=== PATIENT | female | born 1960 | race Caucasian/White ===

== ENCOUNTER → 2016-12-16 | Outpatient (CLI) | payer BC ==
[~2016-12-16] MED LIST: AMLO-114 PO; ASCA500 PO; CRS/10 PO; CYAN100020 PO; CYM/30 PO; DVN80 PO; ERGO500011 PO; FENO200C6 PO; FERR325T51 PO; HMLI SC; HYDR25TA4 PO; INSDGI SC; INSU1.2I SC; ISOS60TA25 PO; LBT/100 PO; LIRA18IN INJ; MAGN400T6 PO; MISCCAP80 PO; MULT-506 PO; NXM/40 PO; PREG100C PO; PYRI100T4 PO; TRAM-10 PO; VALS320T PO; VTMD1000 PO; [UNRECOGNIZED DRUG - CODE] PO
[2016-12-16 10:42] LABS: MEAN CELL VOLUME 82.3 fL (80-100); MEAN CORPUSCULAR HEMOGLOBIN 26.9 pg (25-34); MEAN CORPUSCULAR HGB CONC 32.6 g/dl (32-36); PLATELET COUNT 250 K/uL (130-400); RED BLOOD COUNT 4.13 M/uL (4.2-5.4); WHITE BLOOD COUNT 7.78 K/uL (4.8-10.8)
[2016-12-16 10:49] LABS: URINE APPEARANCE CLEAR (CLEAR); URINE BILIRUBIN NEG (NEG); URINE COLOR YELLOW; URINE NITRITE NEG (NEG); URINE SPECIFIC GRAVITY 1.017 (1.000-1.030); UROBILINOGEN NEG (NEG)
[2016-12-16 10:51] LABS: CALCIUM 9.4 mg/dl (8.5-10.1)
[2016-12-16 10:55] LABS: ESTIMATED AVERAGE GLUCOSE 171 mg/dl; HA1C FLAG Normal (Normal)
[2016-12-16 10:56] LABS: ALT/SGPT 22 U/L (12-78); BLOOD UREA NITROGEN 56 mg/dl (7-18); BUN/CREATININE RATIO 25.6 (10-20); CARBON DIOXIDE 24 mmol/L (21-32); CHLORIDE 109 mmol/L (98-107); CHOLESTEROL 163 mg/dl (0-200); GLUCOSE 111 mg/dl (70-99); PHOSPHORUS 3.9 mg/dl (2.5-4.9); POTASSIUM 4.2 mmol/L (3.5-5.1); SODIUM 142 mmol/L (136-145); TRIGLYCERIDES 173 mg/dl (0-150); VERY LOW DENSITY LIPOPROT CALC 35 mg/dl
[2016-12-16 11:06] LABS: ALKALINE PHOSPHATASE 42 U/L (45-117); AST/SGOT 11 U/L (15-37); CHOLESTEROL/HDL RATIO 3.8; HDL CHOLESTEROL 43 mg/dl; LDL CHOLESTEROL CALCULATED 85 mg/dl; TOTAL IRON BINDING CAPACITY 387 mcg/dl (250-450)
[2016-12-16 11:09] LABS: MANUAL MICROSCOPIC REQUIRED? NO; REVIEW REQ? NO
[2016-12-16 11:14] LABS: URINE PROTIEN/CREAT RATIO 5.2 (0-0.2); URINE TOTAL PROTEIN 305.8 mg/dl (0-11.9)
== END | disposition home or self-care (01) ==
LOC: C.LAB1850 08:56
PROVIDERS: ATTEND Internal Medicine
DX: I12.9 Hypertensive chronic kidney disease with stage 1 through stage 4 chronic kidney disease, or unspecified chronic kidney disease (principal); R80.9 Proteinuria, unspecified; D64.9 Anemia, unspecified; N18.4 Chronic kidney disease, stage 4 (severe); E11.22 Type 2 diabetes mellitus with diabetic chronic kidney disease; E11.3299 Type 2 diabetes mellitus with mild nonproliferative diabetic retinopathy without macular edema, unspecified eye

== ENCOUNTER → 2017-02-20 | Day surgery (SDC) | payer BC ==
[2017-02-12 10:54] VITALS: BMI 44.0
[~2017-02-20] VITALS: Ht 172.7 cm; Wt 131.8 kg
[~2017-02-20] MED LIST changes: -ASCA500 PO; -CYAN100020 PO; -DVN80 PO; +ERGO1CAP41 PO; -ERGO500011 PO; -INSDGI SC; -LIRA18IN INJ; -NXM/40 PO; -PREG100C PO; +PROPOFOL IV EMULSION 10 MG/ML 20 ML VIAL IV ONE; -PYRI100T4 PO; +SODIUM CHLORIDE 0.9% 500ML 500 ML IV ONE; -VTMD1000 PO; -[UNRECOGNIZED DRUG - CODE] PO
[2017-02-20 10:11] VITALS: Ht 172.7 cm; Wt 131.8 kg
[2017-02-20 10:15] VITALS: TEMP 37.1
--- NOTE | 2017-02-20 10:51 | Endo History and Physical ---
History & Physical Date of Service: Feb 20, 2017. Chief Complaint: screening Referring Physician: Dr. Louie History of Present Illness 56 yo CF who presents for screening colonoscopy. Past Medical History Diabetes, Reflux, High Cholesterol, Hypertension, Kidney Disease Past Surgical History Hx Cardiac Surgery: No Hx Internal Defibrillator: No Hx Pacemaker: No Hx Abdominal Surgery: Yes (APPY, PERFORATED COLON REPAIR, ROD BSO, X 2, ILSA, LAPAROSCOPY'S) Hx of Implantable Prosthesis: No Hx Post-Op Nausea and Vomiting: No Hx Cancer Surgery: No Hx Thoracic Surgery: No Hx Orthopedic: Yes (LUMBAR DISCECTOMY X 2, RT LEG I&D) Hx Urinary Tract Surgery: No Family History Colon CA, Esophogeal CA Social History Smoking Status: Never Smoker Hx Substance Use: No Hx Alcohol Use: Yes (OCCASIONALLY) Allergies Coded Allergies: No Known Allergies (Verified , 02/20/17) Current Medications Reported Home Medications Medications Dose Route/Sig Max Daily Dose Days Date Category Dose Instructions Vitamin D 81629 Unit (Ergocalciferol) 50,000 Unit Cap 1 Tab PO WK 02/12/17 Reported Diovan (Valsartan) 320 Mg Tab 320 Mg PO QAM 02/12/17 Reported Ultram (Tramadol HCl) 50 Mg Tab 50 Mg PO HS PRN 02/12/17 Reported Toujeo Solostar (Insulin Glargine) 300 Unit/Ml Inj 150 Unit SC HS 02/12/17 Reported Multivitamin (Multivitamins) Tab 1 Tab PO QAM 02/12/17 Reported Cymbalta (Duloxetine HCl) 30 Mg Cap 1 Cap PO BID 30 02/12/17 Reported Mag-Ox (Magnesium Oxide) 400 Mg Tab 400 Mg PO BID 11/21/14 Reported Iron Supplement (Ferrous Sulfate) 325 Mg Tab 325 Mg PO QAM 11/21/14 Reported Probiotic (Probiotic Product) 1 Cap Cap 1 Cap PO QAM 11/21/14 Reported Normodyne (Labetalol Hcl) 100 Mg Tab 100 Mg PO Q12 03/03/14 Reported Imdur Ext Rel (Isosorbide Mononitrate) 60 Mg Ertab 60 Mg PO QAM 03/03/14 Reported Hctz (Hydrochlorothiazide) 25 Mg Tab 25 Mg PO QAM 03/03/14 Reported Humalog (Insulin Human Lispro) Inj 1 Dose SC UD 03/03/14 Reported PER SLIDING SCALE. Tricor (Fenofibrate) 200 Mg Cap 200 Mg PO HS 03/03/14 Reported Crestor (Rosuvastatin Calcium) 10 Mg Tab 10 Mg PO HS 03/03/14 Reported Norvasc (Amlodipine Besylate) 10 Mg Tab 10 Mg PO QAM 03/03/14 Reported Vital Signs Weight (Kilograms): 131.82 Height (Feet): 5 Height (Inches): 8 Date Time Temp Pulse Resp B/P (MAP) Pulse Ox O2 Delivery O2 Flow Rate FiO2 02/20/17 10:15 37.1 75 20 189/84 (119) 95 Room Air Physical Exam General Appearance: WD/WN, no apparent distress Respiratory/Chest: Auscultation: breath sounds normal Cardiovascular: Heart Auscultation: RRR Abdomen: Bowel Sounds: normal Inspection & Palpation: soft, non-distended, no tenderness, guarding & rebound Assessment and Plan Assessment: 56 yo CF who presents for screening colonoscopy. Plan: Proceed with colonoscopy.
--- NOTE | 2017-02-20 11:09 | Discharge Instructions ---
Endoscopy Patient Instructions Date / Procedure(s) Performed Feb 20, 2017. Colonoscopy Allergy Information Coded Allergies: No Known Allergies (Verified , 02/20/17) Discharge Date / Findings Feb 20, 2017. Diverticulosis Internal hemorrhoids Normal appearance of Ileo-colonic anastomosis Medication Instructions OK to resume all medications today as prescribed Reported Home Medications Medications Dose Route/Sig Max Daily Dose Days Date Category Dose Instructions Vitamin D 25548 Unit (Ergocalciferol) 50,000 Unit Cap 1 Tab PO WK 02/12/17 Reported Diovan (Valsartan) 320 Mg Tab 320 Mg PO QAM 02/12/17 Reported Ultram (Tramadol HCl) 50 Mg Tab 50 Mg PO HS PRN 02/12/17 Reported Toujeo Solostar (Insulin Glargine) 300 Unit/Ml Inj 150 Unit SC HS 02/12/17 Reported Multivitamin (Multivitamins) Tab 1 Tab PO QAM 02/12/17 Reported Cymbalta (Duloxetine HCl) 30 Mg Cap 1 Cap PO BID 30 02/12/17 Reported Mag-Ox (Magnesium Oxide) 400 Mg Tab 400 Mg PO BID 11/21/14 Reported Iron Supplement (Ferrous Sulfate) 325 Mg Tab 325 Mg PO QAM 11/21/14 Reported Probiotic (Probiotic Product) 1 Cap Cap 1 Cap PO QAM 11/21/14 Reported Normodyne (Labetalol Hcl) 100 Mg Tab 100 Mg PO Q12 03/03/14 Reported Imdur Ext Rel (Isosorbide Mononitrate) 60 Mg Ertab 60 Mg PO QAM 03/03/14 Reported Hctz (Hydrochlorothiazide) 25 Mg Tab 25 Mg PO QAM 03/03/14 Reported Humalog (Insulin Human Lispro) Inj 1 Dose SC UD 03/03/14 Reported PER SLIDING SCALE. Tricor (Fenofibrate) 200 Mg Cap 200 Mg PO HS 03/03/14 Reported Crestor (Rosuvastatin Calcium) 10 Mg Tab 10 Mg PO HS 03/03/14 Reported Norvasc (Amlodipine Besylate) 10 Mg Tab 10 Mg PO QAM 03/03/14 Reported Provider Instructions Activity Restrictions - No exercising or heavy lifting for 24 hours. - Do not drink alcohol the day of the procedure. - Do not drive a car or operate machinery until the day after the procedure. - Do not make any important decisions or sign important papers in 24 hours after the procedure. Following Day: - Return to full activity which may include returning to work/school. Diet Start your diet with liquids and light foods (jello, soup, juice, toast). Then eat your usual diet if not nauseated. Treatment For Common After Affects For mild abdominal pain, bloating, or excessive gas: - Rest - Eat lightly - Lie on right side Follow-Up Information Follow-up with Dr. Louie as scheduled Anesthesia Information What You Should Know You have had a procedure that required some medicine to reduce anxiety and discomfort. This treatment is called moderate sedation. After receiving the treatment, you may be sleepy, but you will be able to breathe on your own. The effects of the treatment may last for several hours. Follow these instructions along with Activity/Diet recommendations noted above: * Do NOT do anything where dizziness or clumsiness would be dangerous. * Rest quietly at home today, then you can be up and about tomorrow. * Have a responsible person stay with you the rest of today. * You may have had an I.V. today. If so, you may take the dressing off later today. Recommendations Call your doctor if: * Trouble breathing * Continuous vomiting for more than 24 hours * Temperature above 101 degrees * Severe abdominal pain or bloating * Pain not relieved by pain medicine ordered * There is increased drainage or redness from any incision * A large amount of rectal bleeding greater than 2-3 tablespoons. (If you had a polyp/s removed or have hemorrhoids, a small amount of blood - from the rectum is to be expected.) * You have any unanswered questions or concerns. IN THE EVENT OF A SERIOUS EMERGENCY, GO TO THE NEAREST EMERGENCY ROOM Your discharge instructions were prepared by provider Anton Miranda. Patient Instructions Signature Page Deandra Magdaleno Patient (or Guardian) Signature/Date: I have read and understand the instructions given to me by my caregivers. Caregiver/RN/Doctor Signature/Date: The above-named patient and/or guardian has received patient instructions on this date. + Original Patient Signature Page (only) stays with chart. Please make copy for patient.
--- NOTE | 2017-02-20 11:14 | GI REPORT ---
Procedure Date: 02/20/2017 10:42 AM Procedure: Colonoscopy Indications: High risk colon cancer surveillance: Personal history of colonic polyps Medicines: Monitored Anesthesia Care Complications: No immediate complications. Estimated Blood Loss: Estimated blood loss: none. Procedure: Pre-Anesthesia Assessment: - Prior to the procedure, a History and Physical was performed, and patient medications and allergies were reviewed. The patient's tolerance of previous anesthesia was also reviewed. The risks and benefits of the procedure and the sedation options and risks were discussed with the patient. All questions were answered, and informed consent was obtained. Prior Anticoagulants: The patient has taken aspirin, last dose was 1 day prior to procedure. ASA Grade Assessment: II - A patient with mild systemic disease. After reviewing the risks and benefits, the patient was deemed in satisfactory condition to undergo the procedure. After I obtained informed consent, the scope was passed under direct vision. Throughout the procedure, the patient's blood pressure, pulse, and oxygen saturations were monitored continuously. The scope was introduced through the anus and advanced to the ileocolonic anastomosis. The colonoscopy was performed without difficulty. The patient tolerated the procedure well. The quality of the bowel preparation was good. The terminal ileum and the rectum were photographed. Findings: There was evidence of a prior end-to-side ileo-colonic anastomosis in the ascending colon. This was patent and was characterized by healthy appearing mucosa. The anastomosis was traversed. Multiple small-mouthed diverticula were found in the sigmoid colon. Non-bleeding internal hemorrhoids were found during retroflexion. The hemorrhoids were small. Impression: - Patent end-to-side ileo-colonic anastomosis, characterized by healthy appearing mucosa. - Diverticulosis in the sigmoid colon. - Non-bleeding internal hemorrhoids. - No specimens collected. Recommendation: - Resume previous diet. - Continue present medications. - Repeat colonoscopy in 5 years for surveillance. - Return to primary care physician as previously scheduled. Anton Miranda DO 02/20/2017 11:13:57 AM This report has been signed electronically. Note Initiated On: 02/20/2017 10:42 AM I attest to the content of the Intraoperative Record and orders documented therein, exceptions below
[2017-02-20 11:48] VITALS: BP 137/74; PULSE 72; O2SAT 94
--- NOTE | 2017-02-20 14:11 | Anesthesiology Progress Note ---
Anesthesia Post Op Note Date & Time Feb 20, 2017 at 14:11 Vital Signs Pain Intensity: 0 Vital Signs Past 12 Hours Date Time Temp Pulse Resp B/P (MAP) Pulse Ox O2 Delivery O2 Flow Rate FiO2 02/20/17 11:48 72 20 137/74 (95) 94 02/20/17 11:32 74 20 139/95 (110) 94 Room Air 02/20/17 11:17 68 20 129/64 (85) 94 Room Air 02/20/17 10:15 37.1 75 20 189/84 (119) 95 Room Air Notes Mental Status: alert / awake / arousable, participated in evaluation Pt Amnestic to Procedure: Yes Nausea / Vomiting: adequately controlled Pain: adequately controlled Airway Patency, RR, SpO2: stable & adequate BP & HR: stable & adequate Hydration State: stable & adequate Anesthetic Complications: no major complications apparent
== END | disposition home or self-care (01) ==
LOC: C.GI 09:40
PROVIDERS: ATTEND Internal Medicine
DX: Z12.11 Encounter for screening for malignant neoplasm of colon (principal); K64.8 Other hemorrhoids; K57.30 Diverticulosis of large intestine without perforation or abscess without bleeding; E11.9 Type 2 diabetes mellitus without complications; K21.9 Gastro-esophageal reflux disease without esophagitis; E78.00 Pure hypercholesterolemia, unspecified; N18.9 Chronic kidney disease, unspecified; I12.9 Hypertensive chronic kidney disease with stage 1 through stage 4 chronic kidney disease, or unspecified chronic kidney disease; Z79.4 Long term (current) use of insulin; Z86.010 Personal history of colon polyps; Z90.49 Acquired absence of other specified parts of digestive tract; Z90.710 Acquired absence of both cervix and uterus; Z90.722 Acquired absence of ovaries, bilateral; Z90.79 Acquired absence of other genital organ(s); Z80.0 Family history of malignant neoplasm of digestive organs

== ENCOUNTER → 2017-06-30 | Outpatient (CLI) | payer BC ==
[~2017-06-30] MED LIST changes: -ERGO1CAP41 PO; +ERGO500011 PO; -PROPOFOL IV EMULSION 10 MG/ML 20 ML VIAL IV ONE; -SODIUM CHLORIDE 0.9% 500ML 500 ML IV ONE
[2017-06-30 09:34] LABS: HEMATOCRIT 32.6 % (37-47); MEAN CELL VOLUME 81.7 fL (80-100); MEAN CORPUSCULAR HEMOGLOBIN 26.8 pg (25-34); MEAN CORPUSCULAR HGB CONC 32.8 g/dl (32-36); MEAN PLATELET VOLUME 10.9 fL (7.4-10.4); PLATELET COUNT 236 K/uL (130-400); RED BLOOD COUNT 3.99 M/uL (4.2-5.4); WHITE BLOOD COUNT 7.38 K/uL (4.8-10.8)
[2017-06-30 09:42] LABS: ESTIMATED AVERAGE GLUCOSE 166 mg/dl; HA1C FLAG Normal (Normal)
[2017-06-30 10:20] LABS: ALT/SGPT 25 U/L (12-78); AST/SGOT 12 U/L (15-37); BLOOD UREA NITROGEN 60 mg/dl (7-18); BUN/CREATININE RATIO 22.2 (10-20); CALCIUM 9.2 mg/dl (8.5-10.1); CARBON DIOXIDE 23 mmol/L (21-32); CHLORIDE 108 mmol/L (98-107); CREATININE 2.69 mg/dl (0.60-1.20); GLUCOSE 92 mg/dl (70-99); POTASSIUM 4.5 mmol/L (3.5-5.1); SODIUM 141 mmol/L (136-145)
[2017-06-30 10:22] LABS: ALB/GLOB RATIO 0.9 (0.9-2); ALKALINE PHOSPHATASE 48 U/L (45-117)
[2017-06-30 10:27] LABS: URINE APPEARANCE CLEAR (CLEAR); URINE BILIRUBIN NEG (NEG); URINE COLOR YELLOW; URINE NITRITE NEG (NEG); URINE PH 6.5 (4.5-7.5); URINE SPECIFIC GRAVITY 1.015 (1.000-1.030); UROBILINOGEN NEG (NEG)
[2017-06-30 10:35] LABS: MANUAL MICROSCOPIC REQUIRED? NO; REVIEW REQ? NO
[2017-06-30 10:38] LABS: CREATININE, URINE 42.1 mg/dl; URINE PROTIEN/CREAT RATIO 7.7 (0-0.2); URINE TOTAL PROTEIN 322.8 mg/dl (0-11.9)
== END | disposition home or self-care (01) ==
LOC: C.LAB1850 08:42
PROVIDERS: ATTEND Internal Medicine Nephrology
DX: E11.49 Type 2 diabetes mellitus with other diabetic neurological complication (principal); I12.9 Hypertensive chronic kidney disease with stage 1 through stage 4 chronic kidney disease, or unspecified chronic kidney disease; R80.9 Proteinuria, unspecified; N18.3 Chronic kidney disease, stage 3 (moderate); D64.9 Anemia, unspecified; E55.9 Vitamin D deficiency, unspecified; Z11.59 Encounter for screening for other viral diseases

== ENCOUNTER → 2017-07-27 | Outpatient (CLI) | payer BC ==
--- NOTE | 2017-07-27 09:46 | DIAGNOSTIC IMAGING REPORT ---
CHEST 2 VIEWS ROUTINE CLINICAL HISTORY: 57 years-old Female presenting with R06.02 R05, shortness of breath, cough. TECHNIQUE: PA and lateral views of the chest were obtained. COMPARISON: 02/14/2015. FINDINGS: Atherosclerosis of aortic arch. Cardiac silhouette enlarged, unchanged. The double density posterior to the cardiac silhouette suggests left atrial enlargement. Pulmonary vascular prominence and a prominent lung markings bilaterally. Stable bandlike opacity in the left midlung, likely scarring. Minimal bandlike opacities at the right lung base also persist, possibly also scarring or atelectasis. No pleural effusion or pneumothorax. Osseous structures normal. Upper abdomen normal. IMPRESSION: 1. Cardiomegaly and evidence of volume overload. No vincent pulmonary edema. Electronically signed by: Anil Burnett M.D. 07/27/2017 9:45 AM Dictated Date/Time: 07/27/2017 9:43 AM
== END | disposition home or self-care (01) ==
LOC: C.RAD1850 09:32
PROVIDERS: ATTEND Nurse Practitioner Adult Health
DX: R06.02 Shortness of breath (principal); R05 Cough

== ENCOUNTER → 2017-07-30 | Outpatient (CLI) | payer BC ==
[2017-07-30 12:06] LABS: BASO % 0.2 %; BASO ABS # 0.03 K/uL (0-0.2); COMPLETE YES; EOS % 1.7 %; HEMATOCRIT 32.1 % (37-47); IG% 1.7 %; LYMPH ABS # 2.58 K/uL (1.2-3.4); MEAN CELL VOLUME 83.8 fL (80-100); MEAN CORPUSCULAR HEMOGLOBIN 27.2 pg (25-34); MEAN CORPUSCULAR HGB CONC 32.4 g/dl (32-36); MEAN PLATELET VOLUME 10.8 fL (7.4-10.4); MONO % 6.5 %; NEUT % 68.9 %; PLATELET COUNT 291 K/uL (130-400); RED BLOOD COUNT 3.83 M/uL (4.2-5.4); WHITE BLOOD COUNT 12.31 K/uL (4.8-10.8)
[2017-07-30 12:35] LABS: BLOOD UREA NITROGEN 59 mg/dl (7-18); BUN/CREATININE RATIO 25.5 (10-20); CALCIUM 9.1 mg/dl (8.5-10.1); CARBON DIOXIDE 27 mmol/L (21-32); CHLORIDE 108 mmol/L (98-107); CREATININE 2.32 mg/dl (0.60-1.20); GLUCOSE 78 mg/dl (70-99); POTASSIUM 4.3 mmol/L (3.5-5.1); SODIUM 141 mmol/L (136-145)
== END | disposition home or self-care (01) ==
LOC: C.LAB1850 11:09
PROVIDERS: ATTEND Nurse Practitioner Adult Health
DX: N18.3 Chronic kidney disease, stage 3 (moderate) (principal); R06.02 Shortness of breath

== ENCOUNTER → 2017-08-12 | Outpatient (CLI) | payer BC ==
[~2017-08-12] MED LIST changes: -AMLO-114 PO; +AMLO10TA3 PO
== END | disposition home or self-care (01) ==
LOC: C.LAB1850 12:55
PROVIDERS: ATTEND Internal Medicine Clinical Cardiac Electrophysiology
DX: R93.8 Abnormal findings on diagnostic imaging of other specified body structures (principal)

== ENCOUNTER → 2017-10-15 | Outpatient (CLI) | payer OTHER ==
[~2017-10-15] MED LIST changes: +AMLO-114 PO; -AMLO10TA3 PO
[2017-10-15 14:56] LABS: ALBUMIN 3.3 gm/dl (3.4-5.0); BLOOD UREA NITROGEN 62 mg/dl (7-18); CALCIUM 8.8 mg/dl (8.5-10.1); CARBON DIOXIDE 26 mmol/L (21-32); CREATININE 2.88 mg/dl (0.60-1.20); GLUCOSE 190 mg/dl (70-99); PHOSPHORUS 5.2 mg/dl (2.5-4.9); POTASSIUM 4.8 mmol/L (3.5-5.1); SODIUM 139 mmol/L (136-145)
[2017-10-15 15:10] LABS: HEMATOCRIT 33.5 % (37-47); HEMOGLOBIN 10.8 g/dL (12.0-16.0); MEAN CELL VOLUME 82.1 fL (80-100); MEAN CORPUSCULAR HEMOGLOBIN 26.5 pg (25-34); MEAN CORPUSCULAR HGB CONC 32.2 g/dl (32-36); MEAN PLATELET VOLUME 11.3 fL (7.4-10.4); PLATELET COUNT 233 K/uL (130-400); RED CELL DISTRIBUTION WIDTH CV 15.5 % (11.5-14.5); RED CELL DISTRIBUTION WIDTH SD 46.7 fL (36.4-46.3); WHITE BLOOD COUNT 9.31 K/uL (4.8-10.8)
== END | disposition home or self-care (01) ==
LOC: C.LAB1850 13:45
PROVIDERS: ATTEND Internal Medicine Nephrology
DX: R80.9 Proteinuria, unspecified (principal); E55.9 Vitamin D deficiency, unspecified; N18.3 Chronic kidney disease, stage 3 (moderate); D64.9 Anemia, unspecified

== ENCOUNTER → 2017-12-17 | Outpatient (CLI) | payer OTHER ==
[2017-12-17 09:46] LABS: HEMOGLOBIN 10.5 g/dL (12.0-16.0); MEAN CELL VOLUME 82.7 fL (80-100); MEAN CORPUSCULAR HEMOGLOBIN 26.3 pg (25-34); MEAN CORPUSCULAR HGB CONC 31.8 g/dl (32-36); MEAN PLATELET VOLUME 10.6 fL (7.4-10.4); PLATELET COUNT 250 K/uL (130-400); RED CELL DISTRIBUTION WIDTH CV 15.8 % (11.5-14.5); RED CELL DISTRIBUTION WIDTH SD 47.4 fL (36.4-46.3); WHITE BLOOD COUNT 6.91 K/uL (4.8-10.8)
[2017-12-17 10:03] LABS: ALBUMIN 3.1 gm/dl (3.4-5.0); BLOOD UREA NITROGEN 56 mg/dl (7-18); CALCIUM 8.6 mg/dl (8.5-10.1); CARBON DIOXIDE 26 mmol/L (21-32); CREATININE 3.16 mg/dl (0.60-1.20); GLUCOSE 81 mg/dl (70-99); POTASSIUM 4.5 mmol/L (3.5-5.1); SODIUM 142 mmol/L (136-145)
== END | disposition home or self-care (01) ==
LOC: C.LAB1850 08:39
PROVIDERS: ATTEND Internal Medicine Nephrology
DX: I12.9 Hypertensive chronic kidney disease with stage 1 through stage 4 chronic kidney disease, or unspecified chronic kidney disease (principal); R80.9 Proteinuria, unspecified; N18.3 Chronic kidney disease, stage 3 (moderate); D64.9 Anemia, unspecified; E55.9 Vitamin D deficiency, unspecified; E11.22 Type 2 diabetes mellitus with diabetic chronic kidney disease

== ENCOUNTER → 2018-03-11 | Outpatient (CLI) | payer OTHER ==
[~2018-03-11] MED LIST changes: -AMLO-114 PO; +AMLO10TA3 PO
--- NOTE | 2018-03-11 16:00 | MAMMOGRAPHY REPORT ---
BILATERAL DIGITAL SCREENING MAMMOGRAM TOMOSYNTHESIS WITH CAD: 03/11/2018 CLINICAL HISTORY: Routine screening. Patient has no complaints. TECHNIQUE: The study was acquired using full field digital technology and interpreted from soft copy. Breast tomosynthesis in addition to standard 2D mammography was performed. Current study was also ev aluated with a Computer Aided Detection (CAD) system. COMPARISON: Comparison is made to exams dated: 01/16/2016 mammogram, 07/17/2015 mammogram, 06/26/2015 m ammogram, 02/12/2015 mammogram, 01/16/2016 ultrasound, and 07/17/2015 ultrasound - [facility]. BREAST COMPOSITION: There are scattered areas of fibroglandular density in both breasts. FINDINGS: No suspicious masses, calcifications, or areas of architectural distortion are noted in either breast . There has been no significant interval change compared to prior exams. Scattered bilateral benign-a ppearing calcifications are not significantly changed. IMPRESSION: ACR BI-RADS CATEGORY 2: BENIGN There is no mammographic evidence of malignancy. A 1 year screening mammogram is recommended.( 019) The patient will receive written notification of the results. Some breast cancers are not detected with mammography. A negative mammographic report should not ke y biopsy if a clinically suggestive mass is present. Danae Wetzel M.D. ah/:03/11/2018 13:25:05 Staff Analyst: RT Yael(R)(M), [facility] letter sent: Normal 1/2 BI-RADS Code: ACR BI-RADS Category 2: Benign
== END | disposition home or self-care (01) ==
LOC: C.MAMM 12:54
PROVIDERS: ATTEND Internal Medicine
DX: Z12.31 Encounter for screening mammogram for malignant neoplasm of breast (principal)

== ENCOUNTER → 2018-04-06 | Outpatient (CLI) | payer OTHER ==
[2018-04-06 10:08] LABS: HEMATOCRIT 34.2 % (37-47); HEMOGLOBIN 11.2 g/dL (12.0-16.0); MEAN CELL VOLUME 84.2 fL (80-100); MEAN CORPUSCULAR HEMOGLOBIN 27.6 pg (25-34); MEAN CORPUSCULAR HGB CONC 32.7 g/dl (32-36); PLATELET COUNT 279 K/uL (130-400); RED CELL DISTRIBUTION WIDTH CV 15.1 % (11.5-14.5); RED CELL DISTRIBUTION WIDTH SD 46.6 fL (36.4-46.3); WHITE BLOOD COUNT 8.46 K/uL (4.8-10.8)
[2018-04-06 10:31] LABS: HEMOGLOBIN A1C 6.8 % (4.5-5.6)
[2018-04-06 10:38] LABS: ALBUMIN 3.2 gm/dl (3.4-5.0); BLOOD UREA NITROGEN 52 mg/dl (7-18); CALCIUM 8.9 mg/dl (8.5-10.1); CARBON DIOXIDE 25 mmol/L (21-32); CHOLESTEROL 179 mg/dl (0-200); CREATININE 3.31 mg/dl (0.60-1.20); GLUCOSE 56 mg/dl (70-99); LDL CHOLESTEROL CALCULATED 98 mg/dl; PHOSPHORUS 4.6 mg/dl (2.5-4.9); SODIUM 142 mmol/L (136-145)
== END | disposition home or self-care (01) ==
LOC: C.LAB1850 09:21
PROVIDERS: ATTEND Internal Medicine Nephrology
DX: I10 Essential (primary) hypertension (principal); R80.9 Proteinuria, unspecified; D64.9 Anemia, unspecified; N18.3 Chronic kidney disease, stage 3 (moderate); E11.9 Type 2 diabetes mellitus without complications

== ENCOUNTER 2022-07-29 12:55 | Inpatient (IN) ==
[2022-07-29 14:19] LABS: Basophils # (auto) 0.06 K/uL (0-0.2); Basophils % (auto) 0.7 %; Eosinophils # (auto) 0.28 K/uL (0-0.50); Eosinophils % (auto) 3.2 %; Hematocrit (blood only) 44.9 % (34.1-44.9); Hemoglobin 14.4 g/dl (12.0-16.0); Immature Granulocytes # (auto) 0.08 K/uL (0.00-0.02); Immature Granulocytes % (auto) 0.9 %; Lymphocytes # (auto) 2.02 K/uL (1.2-3.4); Lymphocytes % (auto) 22.8 %; Mean Corpuscular Hemoglobin 31.6 pg (25.0-34.0); Mean Corpuscular Hgb Conc 32.1 g/dL (32.0-36.0); Mean Corpuscular Volume 98.5 fL (80.0-100.0); Mean Platelet Volume 10.6 fL (9.4-12.3); Monocytes # (auto) 0.51 K/uL (0.24-0.82); Monocytes % (auto) 5.8 %; Neutrophils % (auto) 66.6 %; Platelet Count 187 K/uL (130-400); RDW Coefficient of Variation 14.8 % (11.5-14.5); RDW Standard Deviation 53.9 fL (36.4-46.3); Red Blood Count 4.56 M/uL (3.93-5.22); White Blood Count 8.85 K/ul (4.8-10.8)
--- NOTE | 2022-07-29 14:30 | XRay Report ---
SINGLE VIEW CHEST CLINICAL HISTORY: Atypical chest pain. Fluid overload FINDINGS: An AP, portable, upright chest radiograph is compared to study dated 05/13/2018. The heart i s enlarged noting atherosclerotic calcification of the thoracic ureter. There is pulmonary vascular c ongestion. The lungs and pleural spaces are clear noting bibasilar atelectasis. No pneumothorax is seen. The skeletal structures are osteopenic. The [place] thorax is grossly intact. IMPRESSION: Cardiomegaly with pulmonary vascular congestion. ACT 112: Negative or not required by law. Electronically signed by: Jeromy Segal M.D. 07/29/2022 2:29 PM
[2022-07-29 14:33] LABS: Partial Thromboplastin Ratio 1.1; Partial Thromboplastin Time 30.2 Seconds (21.0-31.0); Prothrombin Time 11.1 Seconds (9.0-12.0)
[2022-07-29 14:46] LABS: Troponin I High Sensitivity 26.2 pg/ml (0-14)
[2022-07-29 15:13] LABS: BUN Creatinine Ratio 5.5 (10-20); Calcium 8.7 mg/dl (8.5-10.1); Est GFR (African American) 6.4 ml/min; Est GFR (Non-African American) 5.6 ml/min; Potassium 4.3 mmol/L (3.5-5.1)
[2022-07-29] MEDS ORDERED: SODIUM CHLORIDE 0.9% 250 ML IV ONE (15:13)
--- NOTE | 2022-07-29 15:42 | History & Physical Report ---
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 fib on apixaban, depression who presents recommended for admission from the cardiology office who was found to be short of breath with relative hypotension on follow- up 07/29 with her last dialysis session 07/28 Hypotension 80s/60s and tachycardic to 110 in ER. Improved to systolic low 100, heart rate 90s following to 50 cc NSS Patient reports recurrent hypotension worsened with systolics in the 80s at home after dialysis. Have only been able to take off around 4 kg per session per patient Weight today same as weight last week in ER Patient with hypotension to the 80s both at dialysis and at home. No lightheadedness, dizziness, syncope, presyncope Intermittent hypotension in the past 2/2 dialysis, hold diltiazem No pedal edema, no pulmonary edema, and no ascites is appreciated on ER US bedside exam Suspect patient is w/ low intravascular volume. We will complete work-up to evaluate for reduced cardiac function +/- worsened by diltiazem. Echo pending, tropes trended. Trop mildly elevated at admit, although this likely be slightly elevated in the setting of ESRD patient has no clinical chest pain at presentation ESRD, MWF dialysis 2/2 diabetic nephropathy Anuric, produces a scant trickle of urine in the morning unmeasurable otherwise no urine production Volume status managed with dialysis He is not overtly fluid overloaded on x-ray or exam,? Hypotension with volume decrease during dialysis yesterday Receiving small bolus of fluid back on ER evaluation Nephrology consulted for dialysis Paroxysmal A. fib [employer]E [employer] AD[employer] rate controlled with diltiazem EKG pending repeat, poor quality tracing. Intermittently irregular without consistent P waves On Eliquis for stroke prophylaxis, continue apixaban 5 mg p.o. twice daily Rate in 1 teens initially, improved to 90s with small to 50 cc bolus of Diltiazem held for hypotension If limiting hypotension due to CCB or concern for reduced EF, may need switched to alternative rate control. If doing well from volume/blood pressure standpoint can resume diltiazem in the morning Dyslipidemia Continue statin Type II DM On aspart SSI and Tresiba 100 unit every morning at home Based on basal requirements: Basal insulin 50 units twice daily, CF 10, ratio 3. Weight-based: Basal 23 twice daily, CF 15, carb ratio 6 Will admit on basal 30 twice daily, CF 12, carb ratio 5. Glucose checks AC/at bedtime with goal [id number], given ESRD and high requirements will consult pharmacy for adjustments Continue gabapentin 400 mg at bedtime, 200 mg a.m. for neuropathy Mood Continue duloxetine 30 mg p.o. twice daily Hyperlipidemia Continue rosuvastatin 10 mg daily nightly DVT prophylaxis: Anticoagulated on DOAC DVT prophylaxis: On DOAC Diet: Dialysis renal, type II DM CODE STATUS: Full code Disposition: Medical with telemetry for ESRD and cardiac eval. 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 fib on apixaban, depression who presents recommended for admission from the cardiology office who was found to be short of breath with relative hypotension on follow- up 07/29 with her last dialysis session 07/28 At time of ER evaluation patient is tachycardic, blood pressure 83/59, creatinine is 7. 3 after last dialysis 1 day ago, potassium is normal at 4.3. Troponin high-sensitivity is 26.2, COVID is negative. CXR shows cardiomegaly with pulmonary vascular congestion without pleural effusion or overt edema. Per Cardiology Note 06/12/2022: 1. Dobutamine stress echo 11/30/2013: Nondiagnostic. Heart rate achieved only 62% MPHR. Hypertensive response to dobutamine. EF 55-60%. No significant valvular abnormalities. 2. Echo 02/02/2017: Normal LV size, wall motion, systolic function. EF 50-55%. Mild LVH. Trace to mild MR. 3. Echo 10/19/2018: Normal LV size, wall motion, systolic function. EF 60-65%. Moderate LVH. Mild left atrial dilation. No significant valvular abnormalities. 4. Nuclear stress 11/04/2018: Negative for ischemia. EF 58%. 5. Event monitor 01/31/2019 to 03/01/2019: Atrial flutter with RVR. No reported symptoms. No leukocytosis Hemoglobin 14.4 Sodium 139, potassium 4.3 AG 12 Creatinine is dialysis dependent. High-sensitivity troponin 26.2 COVID-negative IMPRESSION: Cardiomegaly with pulmonary vascular congestion. EKG: Comparison EKG 06/12/2022: Sinus with PVCs, right bundle branch block, QTC 450. ___ Has not been ablwe to have full dialysis treatments 2/2 hypotension and tachycardia with attempted outpatient dialysis, hypotension. Takes of 4-5 kilos per sessio nper patient and granddaughter. Dry weight was 127 kilos, at 136kg now not tolerating dialysis. Reports she has had ultrasounds to look for ascities which were negative. Endorses shortness of breath with walking No shotness of breath or chest pain at rest Does endorse inability to lay flat 2/2 orthopnea, sleeps with a wedge pillow for 2-3 years Pt has not noticed increased swelling, daughter think izzy stomach has been a little bigger/more full pt denies this although notes her pants may be a little tighter than normal. No history of chest pain at rest or when walking around Does feel fluttering/afib intermittently more often in the evening. Does not have palpitations at time of bedside assessment Endorses neuropathy. No fevers chills or sweats no cough no sputum production no nausea/vomiting/diarrhea no bloody/black BMs Appetite has been 'good, too good.' Diet has not changed. No unusually salty meeals/soups/deli meats but pt notes she does use salt 'more than I should' and daughter notes has been salting eggs and 'she has always been a salt person.' ESRD on dialysis. Has at most a very tiny trickle of urine some mornings 'not even enough to measure', functionally anuric and dialysis dependent. No burning in the abdomen, no burnding with morning trickle, no back pain. Medical History: Reviewed Medications: Reviewed. No missed doses, last took this morning at 8am Surgical History: Reviewed Allergies: Reviewed Social History: No tobacco product or etoh use. Code Status: Surrogate [phone] Aida Mathew. Full Code, discussed at bedside. Allergies Allergy/AdvReac Type Severity Reaction Status Date / Time atorvastatin [From Lipitor] AdvReac Mild Muscle Pain Verified 07/23/22 14:50 venlafaxine [From Effexor] AdvReac Mild Not Verified 07/23/22 14:50 helpful for depression/neuropathy management Home Medications Medication Instructions Recorded Confirmed Type Saccharomyces boulardii 250 mg 250 mg PO DAILY 03/22/19 07/23/22 History capsule Accu-Chek Guide Glucose Meter #1 ea 07/07/19 06/12/22 Rx (blood-glucose meter) cinacalcet 30 mg tablet 30 mg PO DAILY 09/27/19 07/23/22 History sucroferric oxyhydroxide 500 mg 1,000 mg PO TID 12/20/19 07/23/22 History chewable tablet (Velphoro) Accu-Chek Fastclix Lancet Drum #102 ea 12/25/20 06/12/22 Rx (lancets) calcium acetate 1,334 mg PO TID 12/25/20 07/23/22 History sennosides 8.6 mg tablet (Senokot) 8.6 mg PO DAILY PRN Constipation 12/25/20 07/23/22 History vitamin B complex-vitamin C-folic 1 tab PO DAILY 12/25/20 07/23/22 History acid 0.8 mg tablet (Renal-Krishna) cholecalciferol (vitamin D3) 50 50 mcg PO DAILY 11/05/21 07/23/22 History mcg (2,000 unit) capsule gabapentin 400 mg capsule 400 mg PO HS #30 caps 12/06/21 07/23/22 Rx diltiazem HCl 180 mg capsule,24 180 mg PO DAILY #90 caps 12/16/21 07/23/22 Rx hr,extended release rosuvastatin 10 mg tablet 10 mg PO DAILY #90 tabs 12/16/21 07/23/22 Rx syringe with needle, safety 3 mL #4 ea 12/18/21 06/12/22 Rx 25 gauge x 1" (BD SafetyGlide Syringe) Tresiba FlexTouch U-200 200 100 unit (0.5 mL) subcut QAM 30 01/27/22 07/23/22 Rx unit/mL (3 mL) subcutaneous pen days #18 mL (insulin degludec) icosapent ethyl 1 gram capsule 2 g PO BID #360 caps 01/27/22 07/23/22 Rx (Vascepa) cyanocobalamin (vitamin B-12) 1,000 mcg IM ONCE #1 mL 01/30/22 07/23/22 Rx 1,000 mcg/mL injection solution insulin syringe-needle U-100 0.5 #100 ea 01/30/22 06/12/22 Rx mL 30 gauge x 1/2" (BD Insulin Syringe Ultra-Fine) pen needle, diabetic 32 gauge x #200 ea 03/10/22 06/12/22 Rx 5/32" (BD Ultra-Fine Kaylin Pen Needle) insulin aspart U-100 100 unit/mL 90 unit (0.9 mL) subcut DAILY 30 03/17/22 07/23/22 Rx (3 mL) subcutaneous pen (Novolog days #30 mL Flexpen U-100 Insulin aspart) Accu-Chek Guide test strips (blood #100 ea 03/19/22 06/12/22 Rx sugar diagnostic) apixaban 5 mg tablet 5 mg PO BID #180 tabs 03/21/22 07/23/22 Rx duloxetine 30 mg capsule,delayed 30 mg PO BID #60 caps 03/21/22 07/23/22 Rx release gabapentin 100 mg capsule 200 mg PO QAM #60 caps 06/26/22 07/23/22 Rx peg 3350-electrolytes 236 240 ml PO Q10M #4,000 mL 07/15/22 Rx gram-22.74 gram-6.74 gram-5.86 gram solution (GaviLyte-G) Past Med/Surg History Medical History Abdominal bloating Anticoagulant long-term use Depression Diabetes mellitus, type 2 IDDM Dialysis patient M/W/F [facility] IN [place] Dietary counseling and surveillance End stage renal disease History of anemia History of blood transfusion S/P SURGERY History of kidney stones Hyperlipidemia Hypertension Morbid obesity Paroxysmal atrial fibrillation follows with Dr. Salvador>reason for eliquis Paroxysmal atrial flutter Peripheral neuropathy Retinopathy "MILD" Skin lesion Surgical History Difficult intubation 11/21/14= EXPLORATORY LAPAROTOMY= GRADE VIEW 1, GLIDESCOPE #3, ETT 7.5 AT [facility] H/O exploratory laparotomy History of appendectomy + BOWEL RESECTION 2/2 PERFORATION History of bowel resection PERFORATED APPENDIX SURGERY History of cardiac cath "many years ago" no stents History of cataract surgery bilateral eyes History of colonoscopy History of discectomy LUMBAR x2 History of hysterectomy ROD-BSO History of tooth extraction Hx of section X2 Hx of vascular surgery LEFT BASELIC VEIN AVF= 05/19/18= MAC SEDATION AT [facility] [place] S/P arteriovenous (AV) fistula creation left arm S/P dilation and curettage D&E Family History Grandmother Family history of diabetes mellitus Family/Other Family history of diabetes mellitus Uncle Colorectal cancer Paternal Father Esophageal cancer Mother Methicillin resistant pneumonia due to Staphylococcus aureus Other No family history of adverse response to anesthesia Denies family history of Ovarian cancer Breast cancer Uterine cancer Social History Smoking Status: Never smoker Second Hand Exposure: No; Hx Alcohol Use: No Hx Substance Use: No Preferred Language: Georgian Communication Ability: Effective Visual Impairment: No Limitations 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 NAD. Cooperative. HEENT: Atraumatic, normocephalic. Vision/hearing grossly intact Pulm: CTAB A&P. Good air movement. There are no rales, trace basilar crackles which clear on deep breathing symmetrical chest rise. No increase in work of breathing. No respiratory distress. Cardiac: Irregularly irregular. Radial pulses intact and symmetrical. Abdominal: Obese, nontender, nondistended, soft. BS present. No fluid wave is present. POC abdominal ultrasound performed by ER provider without ascites Extremities: Warm, dry. Therapist strength intact bilaterally in upper extremities. Intact but symmetrically decreased sensation of soft touch in lower extremities with history of neuropathy. No pedal edema is present on admission Results & Data Results & Data ([facility]) Vital Signs (Past 12 Hours) Vital Signs Temp Pulse Pulse Resp BP BP Pulse Ox 07/29/22 15:38 88/68 L 07/29/22 15:28 110 H 18 84/65 L 93 07/29/22 14:30 112 H 21 83/59 L 91 07/29/22 13:53 118 H 20 93/74 L 93 07/29/22 14:00 88 L 07/29/22 13:22 36.9 C 123 H 20 110/67 89 L O2 Del Method O2 Flow Rate 07/29/22 15:38 07/29/22 15:28 Room Air 07/29/22 14:30 Nasal Cannula 2 07/29/22 13:53 Nasal Cannula 2 07/29/22 14:00 Room Air 07/29/22 13:22 Room Air PG Care Time/CCT Total # of Minutes Spent Total Time Spent with Patient: Total time spent is greater than 50% in coordination of care (as documented) at patient's floor/unit and/or counseling patient: Coding Level of Care Code 92188 Initial Inpt Care Lvl 3 Diagnoses Hypotension I95.9 Chronic diastolic congestive heart failure I50.32 Diabetes mellitus, type 2 E11.9 Diabetic nephropathy associated with type 2 diabetes mellitus E11.21 Hyperlipidemia E78.5 Hypertension I10 Morbid obesity E66.01 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
--- NOTE | 2022-07-29 16:44 | Electrocardiogram Report ---
Test Reason : Blood Pressure : / mmHG Vent. Rate : 104 BPM Atrial Rate : 117 BPM P-R Int : 000 ms QRS Dur : 104 ms QT Int : 416 ms P-R-T Axes : 000 -62 006 degrees QTc Int : 547 ms Atrial flutter with variable A-V block Left axis deviation Incomplete right bundle branch block Old Anterior infarct Abnormal ECG When compared with ECG of 13-MAY-2018 09:19, Sinus rhythm no longer present Criteria for Anterior infarct now present HR has increased 33 bpm Confirmed by Alen Diaz ([id number]) on 07/29/2022 4:44:43 PM Referred By: Jerry Salvador Confirmed By:Alen Diaz
--- NOTE | 2022-07-29 17:06 | XCELERA ---
[id number]
--- NOTE | 2022-07-29 19:03 | Emergency Department Note ---
History of Present Illness General Chief Complaint: Referred by Doctor Stated Complaint: A-FIB, POSSIBLE FLUID OVERLOAD Time Seen by Provider: 07/29/22 13:34 History of Present Illness Provider Complaint: shortness of breath Onset (ago): week(s) (1) Severity: moderate Consistency/Duration: + progressively worsening Relieved By: + upright position Exacerbated By: + lying flat and + exertion Associated symptoms: + palpitations; no chest pain, no fever, no wheezing or no abdominal pain HPI Narrative: Patient is end-stage renal disease on hemodialysis Thursday and received a full session yesterday. Patient states she feels like she has been increasing weight and retaining fluid. Furred here by cardiology Dr. Salvador. No abdominal pain. No chest pain. No fevers. Patient is on Eliquis has not missed any doses. Related Data Home oxygen amount: none Home Medications Medication Instructions Recorded Confirmed Type Saccharomyces boulardii 250 mg 250 mg PO DAILY 03/22/19 07/23/22 History capsule Accu-Chek Guide Glucose Meter #1 ea 07/07/19 06/12/22 Rx (blood-glucose meter) cinacalcet 30 mg tablet 30 mg PO DAILY 09/27/19 07/23/22 History sucroferric oxyhydroxide 500 mg 1,000 mg PO TID 12/20/19 07/23/22 History chewable tablet (Velphoro) Accu-Chek Fastclix Lancet Drum #102 ea 12/25/20 06/12/22 Rx (lancets) sennosides 8.6 mg tablet (Senokot) 8.6 mg PO DAILY PRN Constipation 12/25/20 07/23/22 History vitamin B complex-vitamin C-folic 1 tab PO DAILY 12/25/20 07/23/22 History acid 0.8 mg tablet (Renal-Krishna) cholecalciferol (vitamin D3) 50 50 mcg PO DAILY 11/05/21 07/23/22 History mcg (2,000 unit) capsule gabapentin 400 mg capsule 400 mg PO HS #30 caps 12/06/21 07/23/22 Rx diltiazem HCl 180 mg capsule,24 180 mg PO DAILY #90 caps 12/16/21 07/23/22 Rx hr,extended release rosuvastatin 10 mg tablet 10 mg PO DAILY #90 tabs 12/16/21 07/23/22 Rx syringe with needle, safety 3 mL #4 ea 12/18/21 06/12/22 Rx 25 gauge x 1" (BD SafetyGlide Syringe) Tresiba FlexTouch U-200 200 100 unit (0.5 mL) subcut QAM 30 01/27/22 07/23/22 Rx unit/mL (3 mL) subcutaneous pen days #18 mL (insulin degludec) icosapent ethyl 1 gram capsule 2 g PO BID #360 caps 01/27/22 07/23/22 Rx (Vascepa) cyanocobalamin (vitamin B-12) 1,000 mcg IM ONCE #1 mL 01/30/22 07/23/22 Rx 1,000 mcg/mL injection solution insulin syringe-needle U-100 0.5 #100 ea 01/30/22 06/12/22 Rx mL 30 gauge x 1/2" (BD Insulin Syringe Ultra-Fine) pen needle, diabetic 32 gauge x #200 ea 03/10/22 06/12/22 Rx 5/32" (BD Ultra-Fine Kaylin Pen Needle) insulin aspart U-100 100 unit/mL 90 unit (0.9 mL) subcut DAILY 30 03/17/22 07/23/22 Rx (3 mL) subcutaneous pen (Novolog days #30 mL Flexpen U-100 Insulin aspart) Accu-Chek Guide test strips (blood #100 ea 03/19/22 06/12/22 Rx sugar diagnostic) apixaban 5 mg tablet 5 mg PO BID #180 tabs 03/21/22 07/23/22 Rx duloxetine 30 mg capsule,delayed 30 mg PO BID #60 caps 03/21/22 07/23/22 Rx release gabapentin 100 mg capsule 200 mg PO QAM #60 caps 06/26/22 07/23/22 Rx peg 3350-electrolytes 236 240 ml PO Q10M #4,000 mL 07/15/22 Rx gram-22.74 gram-6.74 gram-5.86 gram solution (GaviLyte-G) calcium acetate(phosphat bind) 667 1,334 mg PO TIDM 07/29/22 07/29/22 History mg capsule Allergies Allergy/AdvReac Type Severity Reaction Status Date / Time atorvastatin [From Lipitor] AdvReac Mild Muscle Pain Verified 07/23/22 14:50 venlafaxine [From Effexor] AdvReac Mild Not Verified 07/23/22 14:50 helpful for depression/neuropathy management Past Med/Surg History Medical History Abdominal bloating Anticoagulant long-term use Depression Diabetes mellitus, type 2 IDDM Dialysis patient M/W/F [facility] IN [place] Dietary counseling and surveillance End stage renal disease History of anemia History of blood transfusion S/P SURGERY History of kidney stones Hyperlipidemia Hypertension Morbid obesity Paroxysmal atrial fibrillation follows with Dr. Salvador>reason for eliquis Paroxysmal atrial flutter Peripheral neuropathy Retinopathy "MILD" Skin lesion Surgical History Difficult intubation 11/21/14= EXPLORATORY LAPAROTOMY= GRADE VIEW 1, GLIDESCOPE #3, ETT 7.5 AT [facility] H/O exploratory laparotomy History of appendectomy + BOWEL RESECTION 2/2 PERFORATION History of bowel resection PERFORATED APPENDIX SURGERY History of cardiac cath "many years ago" no stents History of cataract surgery bilateral eyes History of colonoscopy History of discectomy LUMBAR x2 History of hysterectomy ROD-BSO History of tooth extraction Hx of section X2 Hx of vascular surgery LEFT BASELIC VEIN AVF= 05/19/18= MAC SEDATION AT [facility] S/P arteriovenous (AV) fistula creation left arm S/P dilation and curettage D&E Family History Grandmother Family history of diabetes mellitus Family/Other Family history of diabetes mellitus Uncle Colorectal cancer Paternal Father Esophageal cancer Mother Methicillin resistant pneumonia due to Staphylococcus aureus Other No family history of adverse response to anesthesia Denies family history of Ovarian cancer Breast cancer Uterine cancer Social History Smoking Status: Never smoker Second Hand Exposure: No; Hx Alcohol Use: No Hx Substance Use: No Preferred Language: Georgian Communication Ability: Effective Visual Impairment: No Limitations Quality Assurance Director Required: No Beliefs That Will Affect Care: None marital status: Current Living Situation: Alone Feels Safe at Home: Yes Seatbelt Use: always Assistive Devices: Denture - Upper, Glasses and Walker Physical Exam Vital Signs: Vital Signs - 24 hr 07/29/22 13:22 07/29/22 14:00 07/29/22 13:53 Temperature 36.9 C Temperature Source Temporal Artery Sc an Pulse Rate 123 H 118 H Pulse Rate [Apical ] Pulse Rhythm Regular Pulse Strength Normal Respiratory Rate 20 20 Respiratory Effort / Characteristics Non-Labored Sponta neous Respiratory Depth Normal Respiratory Patter n Regular Blood Pressure 110/67 93/74 L Blood Pressure [Ri ght Arm] Blood Pressure Gabbi n 81 80 Blood Pressure Gabbi n [Right Arm] Blood Pressure Pos ition Sitting Blood Pressure Pos ition [Right Arm] Pulse Oximetry 89 L 88 L 93 Oxygen Delivery Me thod Room Air Room Air Nasal Cannula Oxygen Flow Rate 2 Sepsis Recent Feve r Within 48 Hours No Sepsis New/Unexpla ined Change in Men jennifer Status N/A Sepsis Action Take n by Nursing No Action Required 07/29/22 14:30 07/29/22 15:28 07/29/22 15:38 Temperature Temperature Source Pulse Rate 112 H Pulse Rate [Apical ] 110 H Pulse Rhythm Pulse Strength Respiratory Rate 21 18 Respiratory Effort / Characteristics Non-Labored Sponta neous Respiratory Depth Normal Respiratory Patter n Regular Blood Pressure 83/59 L Blood Pressure [Ri ght Arm] 84/65 L 88/68 L Blood Pressure Gabbi n 67 Blood Pressure Gabbi n [Right Arm] 71 74 Blood Pressure Pos ition Blood Pressure Pos ition [Right Arm] Sitting Sitting Pulse Oximetry 91 93 Oxygen Delivery Me thod Nasal Cannula Room Air Oxygen Flow Rate 2 Sepsis Recent Feve r Within 48 Hours Sepsis New/Unexpla ined Change in Men jennifer Status Sepsis Action Take n by Nursing 07/29/22 15:48 07/29/22 16:00 Temperature Temperature Source Pulse Rate Pulse Rate [Apical ] Pulse Rhythm Pulse Strength Respiratory Rate Respiratory Effort / Characteristics Respiratory Depth Respiratory Patter n Blood Pressure Blood Pressure [Ri ght Arm] 85/68 L 100/58 L Blood Pressure Gabbi n Blood Pressure Gabbi n [Right Arm] 73 72 Blood Pressure Pos ition Blood Pressure Pos ition [Right Arm] Sitting Sitting Pulse Oximetry Oxygen Delivery Me thod Oxygen Flow Rate Sepsis Recent Feve r Within 48 Hours Sepsis New/Unexpla ined Change in Men jennifer Status Sepsis Action Take n by Nursing Physical Exam: Physical Exam HENT: Exam performed. -Head: Normocephalic and atraumatic. -Right Ear: External ear normal. No mastoid tenderness. -Left Ear: External ear normal. No mastoid tenderness. -Mouth/Throat: The oropharynx is clear and moist. No trismus in the jaw. No dental abscesses or uvula swelling. No oropharyngeal exudate or tonsillar abscesses. EYES: Conjunctivae and EOM are normal. Pupils are equal, round, and reactive to light. Right eye exhibits no discharge. Left eye exhibits no discharge. No scleral icterus. NECK: Normal range of motion. Neck supple. No JVD present. No spinous process tenderness present. No carotid bruit present. No rigidity. No tracheal deviation and normal range of motion present. No Brudzinski's sign and no Kernig's sign noted. CV: Normal rate, irregular rhythm, normal heart sounds and intact distal pulses. There is no peripheral edema. Palpable radial pulses bue. PULM/CHEST: Diminished breath sounds bilaterally with mild inspiratory rales at the bases. ABD: The abdomen is soft and obese. Bowel sounds are normal. She has distension. There is no tenderness. There is no rebound, no guarding, no fluid wave. MUSC/SKEL: Normal range of motion. There is no peripheral edema, tenderness or deformity. LYMPH: No cervical adenopathy. NEURO: She is alert and oriented to person, place, and time. She has normal strength. No cranial nerve deficit or sensory deficit. Coordination and gait normal. GCS eye subscore is 4. GCS verbal subscore is 5. GCS motor subscore is 6. Cerebellar tests wnl. SKIN: Skin is warm and dry. She is not diaphoretic. PSYCH: She has a normal mood and affect. Behavior is normal. Judgment and thought content normal. Course Course 1334: The patient was evaluated in room C12. A complete history and physical exam was performed Cardiac monitoring: An order was placed for continuous cardiac monitoring. The monitor shows a rate of 100 with atrial fibrilation rhythm Patient was found to be hypoxic on room air 84%. Patient was placed on supplemental oxygen via nasal cannula which improved her oxygen saturation. Bedside ultrasound showed no drainable fluid collection of ascites. 1530: Patient becoming hypotensive. Oxygen saturation stable with supplemental oxygen. Continues to report no chest pain and reports her breathing is improved with. Labs show white blood cell count of 8.85 hemoglobin 14.4. Coagulation studies within normal limits. Creatinine expectedly elevated at 7.23. BUN 40. Potassium 4.3. Glucose 138. Troponin mildly elevated 26.2. Chest x-ray shows cardiomegaly with cephalization fluid overloaded. Patient was hypotensive. Patient will be given small fluid bolus 250 cc and will reevaluate patient's blood pressure. 1600:Vital signs improved with 250 cc bolus. Discussed the case with [facility] hospitalist Dr. Bassett who states he will admit the patient to his service and is requesting a stat echo order be placed. Order was placed by me and he called the technical specialist cytology. Administered Medications Discontinued Medications Sodium Chloride (Nss) 250 mls @ 999 mls/hr IV .Q16M ONE Stop: 07/29/22 15:28 Last Infusion: 07/29/22 15:48 Dose: 0 mls/hr Documented By: Admin: 07/29/22 15:27 Dose: 999 mls/hr Documented By: MIGUEL Medical Decision Making Laboratory Data Result diagrams: 07/29/22 14:04 07/29/22 14:04 Lab Results 07/29/22 07/29/22 07/29/22 Range/Units 14:04 14:04 14:04 WBC 8.85 (4.8-10.8) K/ul RBC 4.56 (3.93-5.22) M/uL Hgb 14.4 (12.0-16.0) g/dl Hct 44.9 (34.1-44.9) % MCV 98.5 (80.0-100.0) fL MCH 31.6 (25.0-34.0) pg MCHC 32.1 (32.0-36.0) g/dL RDW Std Deviation 53.9 H (36.4-46.3) fL RDW Coeff of Carolynn 14.8 H (11.5-14.5) % Plt Count 187 (130-400) K/uL MPV 10.6 (9.4-12.3) fL Immature Gran % (Auto) 0.9 % Neut % (Auto) 66.6 % Lymph % (Auto) 22.8 % [place] % (Auto) 5.8 % Eos % (Auto) 3.2 % Baso % (Auto) 0.7 % Neut # (Auto) 5.90 (1.4-6.5) K/uL Lymph # (Auto) 2.02 (1.2-3.4) K/uL [place] # (Auto) 0.51 (0.24-0.82) K/uL Eos # (Auto) 0.28 (0-0.50) K/uL Baso # (Auto) 0.06 (0-0.2) K/uL Immature Gran # (Auto) 0.08 H (0.00-0.02) K/uL PT 11.1 (9.0-12.0) Seconds INR 1.0 (0.9-1.1) APTT 30.2 (21.0-31.0) Seconds PTT Ratio 1.1 Sodium 139 (136-145) mmol/L Potassium 4.3 (3.5-5.1) mmol/L Chloride 99 (98-107) mmol/L Carbon Dioxide 28 (21-32) mmol/L Anion Gap 12 H (3-11) BUN 40 H (6-23) mg/dl Creatinine 7.23 H* (0.6-1.2) mg/dl Est Cr Clr Drug Dosing 12.0 ml/min Est GFR ( Amer) 6.4 ml/min Est GFR (Non-Af Amer) 5.6 ml/min BUN/Creatinine Ratio 5.5 L (10-20) Glucose 138 H (70-99(Fasting)) mg/dl Calcium 8.7 (8.5-10.1) mg/dl Troponin I High Sens 26.2 H (0-14) pg/ml Lipase 25 (11-82) U/L SARS-CoV-2, RNA, NAAT (NEGATIVE) 07/29/22 Range/Units 14:04 WBC (4.8-10.8) K/ul RBC (3.93-5.22) M/uL Hgb (12.0-16.0) g/dl Hct (34.1-44.9) % MCV (80.0-100.0) fL MCH (25.0-34.0) pg MCHC (32.0-36.0) g/dL RDW Std Deviation (36.4-46.3) fL RDW Coeff of Carolynn (11.5-14.5) % Plt Count (130-400) K/uL MPV (9.4-12.3) fL Immature Gran % (Auto) % Neut % (Auto) % Lymph % (Auto) % [place] % (Auto) % Eos % (Auto) % Baso % (Auto) % Neut # (Auto) (1.4-6.5) K/uL Lymph # (Auto) (1.2-3.4) K/uL [place] # (Auto) (0.24-0.82) K/uL Eos # (Auto) (0-0.50) K/uL Baso # (Auto) (0-0.2) K/uL Immature Gran # (Auto) (0.00-0.02) K/uL PT (9.0-12.0) Seconds INR (0.9-1.1) APTT (21.0-31.0) Seconds PTT Ratio Sodium (136-145) mmol/L Potassium (3.5-5.1) mmol/L Chloride (98-107) mmol/L Carbon Dioxide (21-32) mmol/L Anion Gap (3-11) BUN (6-23) mg/dl Creatinine (0.6-1.2) mg/dl Est Cr Clr Drug Dosing ml/min Est GFR ( Amer) ml/min Est GFR (Non-Af Amer) ml/min BUN/Creatinine Ratio (10-20) Glucose (70-99(Fasting)) mg/dl Calcium (8.5-10.1) mg/dl Troponin I High Sens (0-14) pg/ml Lipase (11-82) U/L SARS-CoV-2, RNA, NAAT NEGATIVE (NEGATIVE) Imaging Data Radiologist's Impression: Chest X-Ray 07/29/22 13:34 SINGLE VIEW CHEST CLINICAL HISTORY: Atypical chest pain. Fluid overload FINDINGS: An AP, portable, upright chest radiograph is compared to study dated 05/13/2018. The heart is enlarged noting atherosclerotic calcification of the thoracic ureter. There is pulmonary vascular congestion. The lungs and pleural spaces are clear noting bibasilar atelectasis. No pneumothorax is seen. The skeletal structures are osteopenic. The bony thorax is grossly intact. IMPRESSION: Cardiomegaly with pulmonary vascular congestion. ACT 112: Negative or not required by law. Electronically signed by: Jeromy Segal M.D. 07/29/2022 2:29 PM ECG Data Interpretation: Atrial fibrillation with rate 104. QRS [address] elevation or ST depression. There is baseline wander due to the patient's respiratory status. [facility] Narrative 1334: The patient was evaluated in room C12. A complete history and physical exam was performed Cardiac monitoring: An order was placed for continuous cardiac monitoring. The monitor shows a rate of 100 with atrial fibrilation rhythm Patient was found to be hypoxic on room air 84%. Patient was placed on supplemental oxygen via nasal cannula which improved her oxygen saturation. Bedside ultrasound showed no drainable fluid collection of ascites. 1530: Patient becoming hypotensive. Oxygen saturation stable with supplemental oxygen. Continues to report no chest pain and reports her breathing is improved with. Labs show white blood cell count of 8.85 hemoglobin 14.4. Coagulation studies within normal limits. Creatinine expectedly elevated at 7.23. BUN 40. Potassium 4.3. Glucose 138. Troponin mildly elevated 26.2. Chest x-ray shows cardiomegaly with cephalization fluid overloaded. Patient was hypotensive. Patient will be given small fluid bolus 250 cc and will reevaluate patient's blood pressure. 1600:Vital signs improved with 250 cc bolus. Discussed the case with [facility] hospitalist Dr. Bassett who states he will admit the patient to his service and is requesting a stat echo order be placed. Order was placed by me and he called the technical specialist cytology. Impression & Plan Hypoxia, Fluid overload Discharge Plan Visit Data Chief Complaint: Referred by Doctor Stated Complaint: A-FIB, POSSIBLE FLUID OVERLOAD ED Provider: Wing Duong Discharge Problem: Hypoxia, Fluid overload Patient Disposition: Admitted As Inpatient Discharge Instructions Interventions: ED Discharge Assessment Last Done: 07/29/22 18:02 Forms Stand Alone Forms: My [facility] Prescriptions Prescriptions: No Action (DME) lancets [Accu-Chek Fastclix Lancet Drum] Misc See Rx Instructions .ROUTE .MEDSUPPLY Qty: 102 11RF Rx Instructions: test blood sugars 3 x daily rosuvastatin 10 mg tablet 10 mg PO DAILY Qty: 90 3RF Rx Instructions: hs diltiazem HCl 180 mg capsule,extended release 24 hr 180 mg PO DAILY Qty: 90 3RF Label Comments: qam (DME) BD SafetyGlide Syringe 3 mL 25 gauge x 1" syringe See Rx Instructions .Route Qty: 4 5RF Rx Instructions: As directed icosapent ethyl [Vascepa] 1 gram capsule 2 g PO BID Qty: 360 3RF Tresiba FlexTouch U-200 200 unit/mL (3 mL) insulin pen 100 unit SQ QAM 30 Days Qty: 18 5RF cyanocobalamin (vitamin B-12) 1,000 mcg/mL solution 1,000 mcg IM ONCE Qty: 1 4RF Rx Instructions: monthly (DME) insulin syringe-needle U-100 [BD Insulin Syringe Ultra-Fine] 0.5 mL 30 gauge x 1/2" syringe See Rx Instructions .Route Qty: 100 1RF Rx Instructions: use 3 x daily (DME) pen needle, diabetic [BD Ultra-Fine Kaylin Pen Needle] 32 gauge x 5/32" needle See Rx Instructions .ROUTE .COMPLEX Qty: 200 11RF Dose Instruction: USE FOUR TIMES DAILY WITH INSULIN Rx Instructions: USE FOUR TIMES DAILY WITH INSULIN insulin aspart U-100 [Novolog Flexpen U-100 Insulin] 100 unit/mL (3 mL) insulin pen 90 unit subcut DAILY 30 Days Qty: 30 5RF Hold Instructions: on back order Rx Instructions: inject with meals per sliding scale up to TDD 90 units (DME) Accu-Chek Guide test strips Strip See Rx Instructions .ROUTE .MEDSUPPLY Qty: 100 11RF Rx Instructions: test blood sugars 3 x daily apixaban 5 mg tablet 5 mg PO BID Qty: 180 3RF duloxetine 30 mg capsule,delayed release(DR/EC) 30 mg PO BID Qty: 60 5RF gabapentin 100 mg capsule 200 mg PO QAM Qty: 60 5RF peg 3350-electrolytes [GaviLyte-G] 236-22.74-6.74 -5.86 gram recon soln 240 ml PO Q10M Qty: 4000 0RF Rx Instructions: until fecal effluent is clear cinacalcet 30 mg tablet 30 mg PO DAILY Velphoro 500 mg tablet,chewable 1,000 mg PO TID Renal-Krishna 0.8 mg tablet 1 tab PO DAILY sennosides [Senokot] 8.6 mg tablet 8.6 mg PO DAILY PRN (Reason: Constipation) gabapentin 400 mg capsule 400 mg PO HS Qty: 30 5RF cholecalciferol (vitamin D3) 50 mcg (2,000 unit) capsule 50 mcg PO DAILY (DME) blood-glucose meter [Accu-Chek Guide Glucose Meter] misc See Rx Instructions .ROUTE .MEDSUPPLY Qty: 1 0RF Rx Instructions: As directed Saccharomyces boulardii 250 mg capsule 250 mg PO DAILY calcium acetate(phosphat bind) 667 mg capsule 1,334 mg PO TIDM Referrals Referrals: Chayito Pagan MD [Primary Care Provider] - : Fluid overload Qualifiers: Hypervolemia type: unspecified Qualified Code(s): E87.70 - Fluid overload, unspecified
[2022-07-29] MEDS ORDERED: GLUCOSE 40% GEL 15 GM TUBE PO PRN (19:22)
[2022-07-29] MEDS ORDERED: GLUCOSE 10 TAB/TUBE PO PRN (19:22)
[2022-07-29] MEDS ORDERED: GLUCAGON FOR INJ 1 MG VIAL SQ PRN (19:22)
[2022-07-29] MEDS ORDERED: DEXTROSE 50% 50 ML SYRINGE IV PRN (19:22)
[2022-07-29] MEDS ORDERED: PHARMACY GLYCEMIC MGMT CONSULT PRN (19:22)
[2022-07-29] MEDS ORDERED: POLYETHYLENE (MIRALAX) 17 GM PACK PO PRN (19:22)
[2022-07-29] MEDS ORDERED: ACETAMINOPHEN 325 MG TAB PO PRN (19:22)
[2022-07-29] MEDS ORDERED: SENNA 8.6 MG TAB PO PRN (19:22)
[2022-07-29] MEDS: CARBOHYDRATES FOR HYPOGLYCEMIA PO PRN (19:53)
[2022-07-29] MEDS: INSULIN ASPART PER UNIT SC SCH (20:35)
[2022-07-29] MEDS: APIXABAN 5 MG TABLET PO SCH (20:36)
[2022-07-29] MEDS: DULoxetine HCL 30 MG CAP PO SCH (20:36)
[2022-07-29 20:46] LABS: Magnesium 2.6 mg/dl (1.7-2.4)
[2022-07-29 20:48] LABS: Troponin I High Sensitivity 26.6 pg/ml (0-14)
[2022-07-29] MEDS ORDERED: GABAPENTIN 400 MG CAP PO SCH (21:00)
[2022-07-29] MEDS ORDERED: LANTUS PER UNIT CHARGE SQ SCH (21:00)
[2022-07-30] MEDS: CARBOHYDRATES FOR HYPOGLYCEMIA PO PRN (02:00)
[2022-07-30] MEDS ORDERED: INSULIN ASPART PER UNIT SC ONE ×2 (02:00→04:00)
[2022-07-30 06:57] LABS: Basophils # (auto) 0.07 K/uL (0-0.2); Basophils % (auto) 0.9 %; Eosinophils # (auto) 0.31 K/uL (0-0.50); Hematocrit (blood only) 44.6 % (34.1-44.9); Immature Granulocytes # (auto) 0.05 K/uL (0.00-0.02); Immature Granulocytes % (auto) 0.6 %; Lymphocytes % (auto) 30.6 %; Mean Corpuscular Hemoglobin 31.6 pg (25.0-34.0); Mean Corpuscular Hgb Conc 31.4 g/dL (32.0-36.0); Mean Corpuscular Volume 100.7 fL (80.0-100.0); Mean Platelet Volume 10.6 fL (9.4-12.3); Monocytes # (auto) 0.52 K/uL (0.24-0.82); Monocytes % (auto) 6.6 %; Neutrophils # (auto) 4.49 K/uL (1.4-6.5); Neutrophils % (auto) 57.3 %; Platelet Count 168 K/uL (130-400); RDW Coefficient of Variation 14.7 % (11.5-14.5); RDW Standard Deviation 54.6 fL (36.4-46.3); Red Blood Count 4.43 M/uL (3.93-5.22); White Blood Count 7.84 K/ul (4.8-10.8)
[2022-07-30 07:22] LABS: Estimated Average Glucose 151 mg/dl; Hemoglobin A1C 6.9 % (4.5-5.6)
[2022-07-30 07:41] LABS: Albumin Globulin Ratio 1.3 (0.9-2); Albumin Level 3.8 gm/dl (3.4-5.0); BUN Creatinine Ratio 5.6 (10-20); Bilirubin,Total 0.4 mg/dl (0.2-1.0); Calcium 8.7 mg/dl (8.5-10.1); Creatinine Clr Calc Pharmacy 10.2 ml/min; Est GFR (African American) 5.2 ml/min; Est GFR (Non-African American) 4.5 ml/min; Globulin 2.9 gm/dl (2.5-4.0); Magnesium 2.7 mg/dl (1.7-2.4); Phosphorus 7.8 mg/dl (2.5-4.9); Potassium 4.2 mmol/L (3.5-5.1); Total Protein 6.7 gm/dl (6.0-8.3)
[2022-07-30] MEDS: INSULIN ASPART PER UNIT SC SCH ×4 (08:28→20:44)
[2022-07-30] MEDS: DULoxetine HCL 30 MG CAP PO SCH ×2 (08:29→20:46)
[2022-07-30] MEDS: ROSUVASTATIN CALCIUM 10 MG TAB PO SCH (08:29)
[2022-07-30] MEDS: APIXABAN 5 MG TABLET PO SCH ×2 (08:29→20:46)
[2022-07-30] MEDS ORDERED: GABAPENTIN 100 MG CAP PO SCH (09:00)
--- NOTE | 2022-07-30 09:03 | Hospitalist Progress Note ---
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 fib on apixaban, depression who presents recommended for admission from the cardiology office who was found to be short of breath with relative hypotension on follow- up 07/29 with her last dialysis session 07/28 She notes she checks her BP at home and typically 80s systolic without symptoms but has dropped as low as the 60s and she feels lightheaded/dizzy with such Weight unchanged from last week 136.6kg on admit. Weight 139.8kg this morning ECHO w/ moderate LVH and right heart findings now seen compared to prior study Cardiology consulted, Dr Diaz * Diltiazem held on admit. * Rec metoprolol tartrate 25mg PO Q8H w/ transition to switch to succinate at discharge if rates acceptable. Denies significant feelings of palpitations but did endorse she felt them last evening. * -- to start PO tonight, held initially for HD Nephrology on consult HD for today -- planned for 2L but patient reports 4L with each session. Messaged Nephrology given patient concerns Midodrine 10mg PO x 1 at instruction of nephrology for BP support for systolic BP to 80s however patient asymptomatic -- defer to further dosing to them, appreciate assistance Given patient w/ ESRD on HD, CrCl not reportable to 10-12 over past several years, and on gabapentin 200mg QAm, 400mg QPM (had inquired as patient w/ prior tremor, reported in neuro office visit tremor improved with lower dose gabapentin) however unclear when adjustments made as she was unaware of this notation. MAX dose given CrCl 300mg daily --> HELD evening dose of gabapentin 400mg dose. Can change tomorrow's dose to 300mg daily as discussed with Nephrology. ?side effect from medication ESRD, MWF dialysis 2/2 diabetic nephropathy HD MWF, Nephrology on consult -- HD session for today as above Did get 250cc bolus in ER for hypotension CXR does show some mild pulm congestion, denies SOB (but was on 2L this morning -- titrated to RA 96% after HD) Continued assistance by nephrology appreciated -- midodrine x 1 given today for BP support however asymptomatic Paroxysmal A. fib - fib/flutter -- rates 110s. Did endorse feeling palpitations last evening, improved today - remains on eliquis BID - diltiazem held on admit for hypotension, cards consulted for assistance. rec for metoprolol -- 25mg PO tartrate Q8H and monitor overnight/transition to succinate at d/c. hopefully improved rate control will allow improvement in BPs as well - Mag 2.7, K 4.2 - continue to monitor on telemetry Dyslipidemia Continue rosuvastatin 10 mg daily nightly Type II DM On aspart SSI and Tresiba 100 unit every morning at home Based on basal requirements: Basal insulin 50 units twice daily, CF 10, ratio 3. Weight-based: Basal 23 twice daily, CF 15, carb ratio 6 Will admit on basal 30 twice daily, CF 12, carb ratio 5. Glucose checks AC/at bedtime with goal [id number], given ESRD and high requirements will consult pharmacy for adjustments -- adjustments this afternoon given initial reduction to 50% for low BSGs yesterday gabapentin reduced as above -- max dose 300mg daily given CrCl Mood/Depression Continues on duloxetine 30 mg BID -- per UTD, NOT dialyzable, assistant broker's labeling recommends AVOID use -- will need continued discussions as appears limited choices for her neuropathy (2) Chronic diastolic congestive heart failure: (3) Diabetes mellitus, type 2: (4) Diabetic nephropathy associated with type 2 diabetes mellitus: (5) Hyperlipidemia: (6) Hypertension: (7) Morbid obesity: (8) 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 BP better at 116/64 prior to HD, states at home she is typically in the 80s systolically. She becomes symptomatic when systolic drops to 60s. She notes they have been lower than usual over the past couple of weeks. Denies any new medications/changes. Typically does not feel palpitations, however she states she could feel them last night and can occasionally but much better. Rates to 100-110s. BP currently 84 systolic w/ dialysis, mentating fine. Discussed daughter lives in [place], if weather bad needing to stay until Thursday. Discussed also messaging nephrology to see about repeating another HD session for tomorrow given continued O2 requirements as she is not on oxygen at home. States this was put on last night. Typically ambulates at home without assistive device but uses rollator when going outside/appointments because of her neuropathy. Prior B12 levels low, noted she is on injections monthly, repeat wnl. Also will obtain 2 step prior to d/c whenever that may be to see if needing any O2 w/ ambulation possibly between HD sessions. Cards consulted, planning to start tartrate for HR control after HD to ensure not dropping BP too low, however rates improving w/ pulling fluid off. Prior neuro notes February w/ mention stopping lamictal (patient states doesn't take this), start tegretol (she doesn't believe this was ever started). Also, her gabapentin -- she notes she believes it is 100mg in the morning, 400mg at night. Does not believe total is 600mg daily. Will change AM dose to 100mg, placed evening on hold for tonight (max daily given CrCl 300mg/daily) -- discussed with patient/nephrology would only utilize 300mg daily given CrCl. Review of Systems Review of Systems: All systems reviewed & are unremarkable except as noted in HPI & below Physical Exam Physical Exam: General: WD/WN female sitting in bed, chronically ill appearing, obese, NAD and watching TV/talking with dialysis nurse at bedside HEENT: normocephalic, atraumatic, mmm, trachea midline, thick neck Resp: diminished int he bases, end expiratory wheezing, no cough/tachypnea, on 2L NC (no O2 use at baseline) CV: irregularly irregular (rates 100-110s), no obvious m/r/g, no pitting edema/calf tenderness, pulses palpable GI: +BS, soft/NT, obese MSK/Neuro: no focal deficit, no slurred speech/facial droop Psych: AOx3, pleasant and cooperative Results & Data Results & Data ([facility]) Vital Signs (Past 12 Hours) Vital Signs Temp Pulse Pulse Resp BP Pulse Ox O2 Del Method 07/30/22 07:20 36.6 C 114 H 17 102/63 93 Nasal Cannula 07/30/22 03:00 36.8 C 113 H 20 98/58 L 92 Nasal Cannula 07/30/22 00:32 116 H 07/29/22 22:00 37.4 C 111 H 20 99/66 L 92 Nasal Cannula O2 Flow Rate 07/30/22 07:20 2 07/30/22 03:00 2 07/30/22 00:32 07/29/22 22:00 2 Laboratory Results 07/30/22 07/30/22 07/30/22 Range/Units 07:19 06:34 06:34 WBC (4.8-10.8) K/ul RBC (3.93-5.22) M/uL Hgb (12.0-16.0) g/dl Hct (34.1-44.9) % MCV (80.0-100.0) fL MCH (25.0-34.0) pg MCHC (32.0-36.0) g/dL RDW Std Deviation (36.4-46.3) fL RDW Coeff of Carolynn (11.5-14.5) % Plt Count (130-400) K/uL MPV (9.4-12.3) fL Immature Gran % (Auto) % Neut % (Auto) % Lymph % (Auto) % Forrest % (Auto) % Eos % (Auto) % Baso % (Auto) % Neut # (Auto) (1.4-6.5) K/uL Lymph # (Auto) (1.2-3.4) K/uL Forrest # (Auto) (0.24-0.82) K/uL Eos # (Auto) (0-0.50) K/uL Baso # (Auto) (0-0.2) K/uL Immature Gran # (Auto) (0.00-0.02) K/uL PT (9.0-12.0) Seconds INR (0.9-1.1) APTT (21.0-31.0) Seconds PTT Ratio Sodium (136-145) mmol/L Potassium (3.5-5.1) mmol/L Chloride (98-107) mmol/L Carbon Dioxide (21-32) mmol/L Anion Gap (3-11) BUN (6-23) mg/dl Creatinine (0.6-1.2) mg/dl Est Cr Clr Drug Dosing ml/min Est GFR ( Amer) ml/min Est GFR (Non-Af Amer) ml/min BUN/Creatinine Ratio (10-20) Glucose (70-99(Fasting)) mg/dl POC Glucose 126 H (70-99) mg/dl Estimat Average Glucose 151 mg/dl Hemoglobin A1c 6.9 H (4.5-5.6) % Calcium (8.5-10.1) mg/dl Phosphorus (2.5-4.9) mg/dl Magnesium (1.7-2.4) mg/dl Total Bilirubin (0.2-1.0) mg/dl AST (13-39) U/L ALT (7-52) U/L Alkaline Phosphatase (34-104) U/L Troponin I High Sens 24.1 H (0-14) pg/ml Total Protein (6.0-8.3) gm/dl Albumin (3.4-5.0) gm/dl Globulin (2.5-4.0) gm/dl Albumin/Globulin Ratio (0.9-2) Lipase (11-82) U/L SARS-CoV-2, RNA, NAAT (NEGATIVE) 07/30/22 07/30/22 07/30/22 Range/Units 06:34 06:34 03:59 WBC 7.84 (4.8-10.8) K/ul RBC 4.43 (3.93-5.22) M/uL Hgb 14.0 (12.0-16.0) g/dl Hct 44.6 (34.1-44.9) % MCV 100.7 H (80.0-100.0) fL MCH 31.6 (25.0-34.0) pg MCHC 31.4 L (32.0-36.0) g/dL RDW Std Deviation 54.6 H (36.4-46.3) fL RDW Coeff of Carolynn 14.7 H (11.5-14.5) % Plt Count 168 (130-400) K/uL MPV 10.6 (9.4-12.3) fL Immature Gran % (Auto) 0.6 % Neut % (Auto) 57.3 % Lymph % (Auto) 30.6 % Forrest % (Auto) 6.6 % Eos % (Auto) 4.0 % Baso % (Auto) 0.9 % Neut # (Auto) 4.49 (1.4-6.5) K/uL Lymph # (Auto) 2.40 (1.2-3.4) K/uL Forrest # (Auto) 0.52 (0.24-0.82) K/uL Eos # (Auto) 0.31 (0-0.50) K/uL Baso # (Auto) 0.07 (0-0.2) K/uL Immature Gran # (Auto) 0.05 H (0.00-0.02) K/uL PT (9.0-12.0) Seconds INR (0.9-1.1) APTT (21.0-31.0) Seconds PTT Ratio Sodium 140 (136-145) mmol/L Potassium 4.2 (3.5-5.1) mmol/L Chloride 100 (98-107) mmol/L Carbon Dioxide 29 (21-32) mmol/L Anion Gap 11 (3-11) BUN 48 H (6-23) mg/dl Creatinine 8.61 H* D (0.6-1.2) mg/dl Est Cr Clr Drug Dosing 10.2 ml/min Est GFR ( Amer) 5.2 ml/min Est GFR (Non-Af Amer) 4.5 ml/min BUN/Creatinine Ratio 5.6 L (10-20) Glucose 99 (70-99(Fasting)) mg/dl POC Glucose 99 (70-99) mg/dl Estimat Average Glucose mg/dl Hemoglobin A1c (4.5-5.6) % Calcium 8.7 (8.5-10.1) mg/dl Phosphorus 7.8 H (2.5-4.9) mg/dl Magnesium 2.7 H (1.7-2.4) mg/dl Total Bilirubin 0.4 (0.2-1.0) mg/dl AST 10 L (13-39) U/L ALT 13 (7-52) U/L Alkaline Phosphatase 74 (34-104) U/L Troponin I High Sens (0-14) pg/ml Total Protein 6.7 (6.0-8.3) gm/dl Albumin 3.8 (3.4-5.0) gm/dl Globulin 2.9 (2.5-4.0) gm/dl Albumin/Globulin Ratio 1.3 (0.9-2) Lipase (11-82) U/L SARS-CoV-2, RNA, NAAT (NEGATIVE) 07/30/22 07/30/22 07/30/22 Range/Units 02:19 01:56 01:54 WBC (4.8-10.8) K/ul RBC (3.93-5.22) M/uL Hgb (12.0-16.0) g/dl Hct (34.1-44.9) % MCV (80.0-100.0) fL MCH (25.0-34.0) pg MCHC (32.0-36.0) g/dL RDW Std Deviation (36.4-46.3) fL RDW Coeff of Carolynn (11.5-14.5) % Plt Count (130-400) K/uL MPV (9.4-12.3) fL Immature Gran % (Auto) % Neut % (Auto) % Lymph % (Auto) % Forrest % (Auto) % Eos % (Auto) % Baso % (Auto) % Neut # (Auto) (1.4-6.5) K/uL Lymph # (Auto) (1.2-3.4) K/uL Forrest # (Auto) (0.24-0.82) K/uL Eos # (Auto) (0-0.50) K/uL Baso # (Auto) (0-0.2) K/uL Immature Gran # (Auto) (0.00-0.02) K/uL PT (9.0-12.0) Seconds INR (0.9-1.1) APTT (21.0-31.0) Seconds PTT Ratio Sodium (136-145) mmol/L Potassium (3.5-5.1) mmol/L Chloride (98-107) mmol/L Carbon Dioxide (21-32) mmol/L Anion Gap (3-11) BUN (6-23) mg/dl Creatinine (0.6-1.2) mg/dl Est Cr Clr Drug Dosing ml/min Est GFR ( Amer) ml/min Est GFR (Non-Af Amer) ml/min BUN/Creatinine Ratio (10-20) Glucose (70-99(Fasting)) mg/dl POC Glucose 72 67 L* 66 L* (70-99) mg/dl Estimat Average Glucose mg/dl Hemoglobin A1c (4.5-5.6) % Calcium (8.5-10.1) mg/dl Phosphorus (2.5-4.9) mg/dl Magnesium (1.7-2.4) mg/dl Total Bilirubin (0.2-1.0) mg/dl AST (13-39) U/L ALT (7-52) U/L Alkaline Phosphatase (34-104) U/L Troponin I High Sens (0-14) pg/ml Total Protein (6.0-8.3) gm/dl Albumin (3.4-5.0) gm/dl Globulin (2.5-4.0) gm/dl Albumin/Globulin Ratio (0.9-2) Lipase (11-82) U/L SARS-CoV-2, RNA, NAAT (NEGATIVE) 07/30/22 07/29/22 07/29/22 Range/Units 01:08 20:13 20:03 WBC (4.8-10.8) K/ul RBC (3.93-5.22) M/uL Hgb (12.0-16.0) g/dl Hct (34.1-44.9) % MCV (80.0-100.0) fL MCH (25.0-34.0) pg MCHC (32.0-36.0) g/dL RDW Std Deviation (36.4-46.3) fL RDW Coeff of Carolynn (11.5-14.5) % Plt Count (130-400) K/uL MPV (9.4-12.3) fL Immature Gran % (Auto) % Neut % (Auto) % Lymph % (Auto) % Forrest % (Auto) % Eos % (Auto) % Baso % (Auto) % Neut # (Auto) (1.4-6.5) K/uL Lymph # (Auto) (1.2-3.4) K/uL Forrest # (Auto) (0.24-0.82) K/uL Eos # (Auto) (0-0.50) K/uL Baso # (Auto) (0-0.2) K/uL Immature Gran # (Auto) (0.00-0.02) K/uL PT (9.0-12.0) Seconds INR (0.9-1.1) APTT (21.0-31.0) Seconds PTT Ratio Sodium (136-145) mmol/L Potassium (3.5-5.1) mmol/L Chloride (98-107) mmol/L Carbon Dioxide (21-32) mmol/L Anion Gap (3-11) BUN (6-23) mg/dl Creatinine (0.6-1.2) mg/dl Est Cr Clr Drug Dosing ml/min Est GFR ( Amer) ml/min Est GFR (Non-Af Amer) ml/min BUN/Creatinine Ratio (10-20) Glucose (70-99(Fasting)) mg/dl POC Glucose 75 (70-99) mg/dl Estimat Average Glucose mg/dl Hemoglobin A1c (4.5-5.6) % Calcium (8.5-10.1) mg/dl Phosphorus (2.5-4.9) mg/dl Magnesium 2.6 H (1.7-2.4) mg/dl Total Bilirubin (0.2-1.0) mg/dl AST (13-39) U/L ALT (7-52) U/L Alkaline Phosphatase (34-104) U/L Troponin I High Sens 27.5 H 26.6 H (0-14) pg/ml Total Protein (6.0-8.3) gm/dl Albumin (3.4-5.0) gm/dl Globulin (2.5-4.0) gm/dl Albumin/Globulin Ratio (0.9-2) Lipase (11-82) U/L SARS-CoV-2, RNA, NAAT (NEGATIVE) 07/29/22 07/29/22 07/29/22 Range/Units 19:47 19:45 14:04 WBC (4.8-10.8) K/ul RBC (3.93-5.22) M/uL Hgb (12.0-16.0) g/dl Hct (34.1-44.9) % MCV (80.0-100.0) fL MCH (25.0-34.0) pg MCHC (32.0-36.0) g/dL RDW Std Deviation (36.4-46.3) fL RDW Coeff of Carolynn (11.5-14.5) % Plt Count (130-400) K/uL MPV (9.4-12.3) fL Immature Gran % (Auto) % Neut % (Auto) % Lymph % (Auto) % Forrest % (Auto) % Eos % (Auto) % Baso % (Auto) % Neut # (Auto) (1.4-6.5) K/uL Lymph # (Auto) (1.2-3.4) K/uL Forrest # (Auto) (0.24-0.82) K/uL Eos # (Auto) (0-0.50) K/uL Baso # (Auto) (0-0.2) K/uL Immature Gran # (Auto) (0.00-0.02) K/uL PT (9.0-12.0) Seconds INR (0.9-1.1) APTT (21.0-31.0) Seconds PTT Ratio Sodium (136-145) mmol/L Potassium (3.5-5.1) mmol/L Chloride (98-107) mmol/L Carbon Dioxide (21-32) mmol/L Anion Gap (3-11) BUN (6-23) mg/dl Creatinine (0.6-1.2) mg/dl Est Cr Clr Drug Dosing ml/min Est GFR ( Amer) ml/min Est GFR (Non-Af Amer) ml/min BUN/Creatinine Ratio (10-20) Glucose (70-99(Fasting)) mg/dl POC Glucose 65 L* 63 L* (70-99) mg/dl Estimat Average Glucose mg/dl Hemoglobin A1c (4.5-5.6) % Calcium (8.5-10.1) mg/dl Phosphorus (2.5-4.9) mg/dl Magnesium (1.7-2.4) mg/dl Total Bilirubin (0.2-1.0) mg/dl AST (13-39) U/L ALT (7-52) U/L Alkaline Phosphatase (34-104) U/L Troponin I High Sens (0-14) pg/ml Total Protein (6.0-8.3) gm/dl Albumin (3.4-5.0) gm/dl Globulin (2.5-4.0) gm/dl Albumin/Globulin Ratio (0.9-2) Lipase (11-82) U/L SARS-CoV-2, RNA, NAAT NEGATIVE (NEGATIVE) 07/29/22 07/29/22 07/29/22 Range/Units 14:04 14:04 14:04 WBC 8.85 (4.8-10.8) K/ul RBC 4.56 (3.93-5.22) M/uL Hgb 14.4 (12.0-16.0) g/dl Hct 44.9 (34.1-44.9) % MCV 98.5 (80.0-100.0) fL MCH 31.6 (25.0-34.0) pg MCHC 32.1 (32.0-36.0) g/dL RDW Std Deviation 53.9 H (36.4-46.3) fL RDW Coeff of Carolynn 14.8 H (11.5-14.5) % Plt Count 187 (130-400) K/uL MPV 10.6 (9.4-12.3) fL Immature Gran % (Auto) 0.9 % Neut % (Auto) 66.6 % Lymph % (Auto) 22.8 % Forrest % (Auto) 5.8 % Eos % (Auto) 3.2 % Baso % (Auto) 0.7 % Neut # (Auto) 5.90 (1.4-6.5) K/uL Lymph # (Auto) 2.02 (1.2-3.4) K/uL Forrest # (Auto) 0.51 (0.24-0.82) K/uL Eos # (Auto) 0.28 (0-0.50) K/uL Baso # (Auto) 0.06 (0-0.2) K/uL Immature Gran # (Auto) 0.08 H (0.00-0.02) K/uL PT 11.1 (9.0-12.0) Seconds INR 1.0 (0.9-1.1) APTT 30.2 (21.0-31.0) Seconds PTT Ratio 1.1 Sodium 139 (136-145) mmol/L Potassium 4.3 (3.5-5.1) mmol/L Chloride 99 (98-107) mmol/L Carbon Dioxide 28 (21-32) mmol/L Anion Gap 12 H (3-11) BUN 40 H (6-23) mg/dl Creatinine 7.23 H* (0.6-1.2) mg/dl Est Cr Clr Drug Dosing 12.0 ml/min Est GFR ( Amer) 6.4 ml/min Est GFR (Non-Af Amer) 5.6 ml/min BUN/Creatinine Ratio 5.5 L (10-20) Glucose 138 H (70-99(Fasting)) mg/dl POC Glucose (70-99) mg/dl Estimat Average Glucose mg/dl Hemoglobin A1c (4.5-5.6) % Calcium 8.7 (8.5-10.1) mg/dl Phosphorus (2.5-4.9) mg/dl Magnesium (1.7-2.4) mg/dl Total Bilirubin (0.2-1.0) mg/dl AST (13-39) U/L ALT (7-52) U/L Alkaline Phosphatase (34-104) U/L Troponin I High Sens 26.2 H (0-14) pg/ml Total Protein (6.0-8.3) gm/dl Albumin (3.4-5.0) gm/dl Globulin (2.5-4.0) gm/dl Albumin/Globulin Ratio (0.9-2) Lipase 25 (11-82) U/L SARS-CoV-2, RNA, NAAT (NEGATIVE) PG Care Time/CCT Total # of Minutes Spent Total Time Spent with Patient: Total time spent is greater than 50% in coordination of care (as documented) at patient's floor/unit and/or counseling patient: Coding Level of Care Code 79439 Subseq Hosp Care Lvl 3 Diagnoses Hypotension I95.9 Chronic diastolic congestive heart failure I50.32 Diabetes mellitus, type 2 E11.9 Diabetic nephropathy associated with type 2 diabetes mellitus E11.21 Hyperlipidemia E78.5 Hypertension I10 Morbid obesity E66.01 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
[2022-07-30 10:38] LABS: Vitamin B12 975 pg/ml (180-914)
--- NOTE | 2022-07-30 10:58 | Nephrology Consultation ---
Date of Consultation July 30, 2022 Assessment & Plan (1) End stage renal disease: (2) Anemia: (3) Hypotension: (4) Fluid overload: (5) Diabetes mellitus, type 2: (6) Paroxysmal atrial fibrillation: Plan ESRD secondary to diabetic nephropathy, has been on hemodialysis since 2014 via left brachiocephalic AV fistula, dialysis at [facility]. Presented with concern over difficulty reaching dry weight with persistent hypotension and tachycardia. Clinically she does not look like overtly volume overloaded. -- Due for dialysis today, will try UF as tolerated and consider adjusting her dry weight accordingly. Was seen by Cardiology and planning to change from diltiazem to metoprolol to help with improvement in blood pressure. -- Left arm nephrology precautions, dose medications for EGFR less than 10 -- continue phosphate binder and renal vitamins will follow Thank you for allowing me to participate in your patient's care. It was a pleasure to see Deandra History of Present Illness Reason for Consultation: ESRD on HD. Attending Physician: Sonal Ovalles MD History of Present Illness Deandra Magdaleno is a 62-year-old female with PMH of ESRD on HD, chronic diastolic CHF, type II DM paroxysmal A. fib admitted with volume overload and hypotension. Nephrology consult requested for management of HD and volume status. EMR records were reviewed during visit. Deandra was admitted yesterday with concern over volume overload, difficulty with UF during dialysis and hypotension and tachycardia. In ER she was tachycardic, BP 83/59. Troponin 26.2, COVID negative. CXR shows cardiomegaly with pulmonary vascular congestion without pleural effusion or overt edema. No significant shortness of breath or chest pain. Hemoglobin was 14, electrolyte was otherwise acceptable. End-stage renal disease on hemodialysis since 2014 after she developed LEIF after ruptured appendix with the background of advanced CKD secondary to diabetic nephropathy. She does not make much urine. 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 Sampson. Her last dialysis was on 07/28/2022 it was shortened as they were not able to do much UF as her blood pressure dropped and she became tachycardic with heart rate around 115-120 despite feeling volume overloaded and unable to reach her dry weight. Has been on diltiazem for history of paroxysmal AFib in addition to anticoagulation with Eliquis. ThLeast Echo 10/19/2018: Normal LV size, wall motion, systolic function. EF 60-65%. Moderate LVH. Mild left atrial dilation. No significant valvular. Nuclear stress 11/04/2018: Negative for ischemia. EF 58%. This morning she is otherwise feeling well, denies any significant shortness of breath. Allergies Allergy/AdvReac Type Severity Reaction Status Date / Time atorvastatin [From Lipitor] AdvReac Mild Muscle Pain Verified 07/29/22 19:13 venlafaxine [From Effexor] AdvReac Mild Not Verified 07/29/22 19:13 helpful for depression/neuropathy management Home Medications Medication Instructions Recorded Confirmed Type Saccharomyces boulardii 250 mg 250 mg PO DAILY 03/22/19 07/29/22 History capsule Accu-Chek Guide Glucose Meter #1 ea 07/07/19 07/29/22 Rx (blood-glucose meter) cinacalcet 30 mg tablet 30 mg PO DAILY 09/27/19 07/29/22 History sucroferric oxyhydroxide 500 mg 1,000 mg PO TID 12/20/19 07/29/22 History chewable tablet (Velphoro) Accu-Chek Fastclix Lancet Drum #102 ea 12/25/20 07/29/22 Rx (lancets) sennosides 8.6 mg tablet (Senokot) 8.6 mg PO DAILY PRN Constipation 12/25/20 07/29/22 History vitamin B complex-vitamin C-folic 1 tab PO DAILY 12/25/20 07/29/22 History acid 0.8 mg tablet (Renal-Krishna) cholecalciferol (vitamin D3) 50 50 mcg PO DAILY 11/05/21 07/29/22 History mcg (2,000 unit) capsule gabapentin 400 mg capsule 400 mg PO HS #30 caps 12/06/21 07/29/22 Rx diltiazem HCl 180 mg capsule,24 180 mg PO DAILY #90 caps 12/16/21 07/29/22 Rx hr,extended release rosuvastatin 10 mg tablet 10 mg PO DAILY #90 tabs 12/16/21 07/29/22 Rx syringe with needle, safety 3 mL #4 ea 12/18/21 07/29/22 Rx 25 gauge x 1" (BD SafetyGlide Syringe) Tresiba FlexTouch U-200 200 100 unit (0.5 mL) subcut QAM 30 01/27/22 07/29/22 Rx unit/mL (3 mL) subcutaneous pen days #18 mL (insulin degludec) icosapent ethyl 1 gram capsule 2 g PO BID #360 caps 01/27/22 07/29/22 Rx (Vascepa) cyanocobalamin (vitamin B-12) 1,000 mcg IM ONCE #1 mL 01/30/22 07/29/22 Rx 1,000 mcg/mL injection solution insulin syringe-needle U-100 0.5 #100 ea 01/30/22 07/29/22 Rx mL 30 gauge x 1/2" (BD Insulin Syringe Ultra-Fine) pen needle, diabetic 32 gauge x #200 ea 03/10/22 07/29/22 Rx 5/32" (BD Ultra-Fine Kaylin Pen Needle) insulin aspart U-100 100 unit/mL 90 unit (0.9 mL) subcut DAILY 30 03/17/22 07/29/22 Rx (3 mL) subcutaneous pen (Novolog days #30 mL Flexpen U-100 Insulin aspart) Accu-Chek Guide test strips (blood #100 ea 03/19/22 07/29/22 Rx sugar diagnostic) apixaban 5 mg tablet 5 mg PO BID #180 tabs 03/21/22 07/29/22 Rx duloxetine 30 mg capsule,delayed 30 mg PO BID #60 caps 03/21/22 07/29/22 Rx release gabapentin 100 mg capsule 200 mg PO QAM #60 caps 06/26/22 07/29/22 Rx peg 3350-electrolytes 236 240 ml PO Q10M #4,000 mL 07/15/22 07/29/22 Rx gram-22.74 gram-6.74 gram-5.86 gram solution (GaviLyte-G) calcium acetate(phosphat bind) 667 1,334 mg PO TIDM 07/29/22 07/29/22 History mg capsule Patient History Medical History Abdominal bloating Anticoagulant long-term use Depression Diabetes mellitus, type 2 IDDM Dialysis patient M/W/F [facility] [place] Dietary counseling and surveillance End stage renal disease History of anemia History of blood transfusion S/P SURGERY History of kidney stones Hyperlipidemia Hypertension Morbid obesity Paroxysmal atrial fibrillation follows with Dr. Salvador>reason for eliquis Paroxysmal atrial flutter Peripheral neuropathy Retinopathy "MILD" Skin lesion Surgical History Difficult intubation 11/21/14= EXPLORATORY LAPAROTOMY= GRADE VIEW 1, GLIDESCOPE #3, ETT 7.5 AT [facility] H/O exploratory laparotomy History of appendectomy + BOWEL RESECTION 2/2 PERFORATION History of bowel resection PERFORATED APPENDIX SURGERY History of cardiac cath "many years ago" no stents History of cataract surgery bilateral eyes History of colonoscopy History of discectomy LUMBAR x2 History of hysterectomy ROD-BSO History of tooth extraction Hx of section X2 Hx of vascular surgery LEFT BASELIC VEIN AVF= 05/19/18= MAC SEDATION AT [facility] S/P arteriovenous (AV) fistula creation left arm S/P dilation and curettage D&E Family History Grandmother Family history of diabetes mellitus Family/Other Family history of diabetes mellitus Uncle Colorectal cancer Paternal Father Esophageal cancer Mother Methicillin resistant pneumonia due to Staphylococcus aureus Other No family history of adverse response to anesthesia Denies family history of Ovarian cancer Breast cancer Uterine cancer Social History Smoking Status: Never smoker Second Hand Exposure: No; Do You Dip or Chew Tobacco: No; Hx Alcohol Use: No Hx Substance Use: No Preferred Language: Irish Communication Ability: Effective Visual Impairment: No Limitations Maintenance Engineer Required: No Beliefs That Will Affect Care: None marital status: Current Living Situation: Alone Other Information That Helps Us Care for You: No Feels Safe at Home: Yes Safety Concerns: Feels Safe At This Time Seatbelt Use: always Assistive Devices: Denture - Upper, Glasses and Walker Review of Systems Review of Systems: Details ROS was done and pertinent positives and negatives were mentioned above. Physical Exam Constitutional: WD/WN, vitals as above no acute distress Eyes: + anicteric sclerae ENMT: Ears: no hearing impairment Neck: normal visual inspection Respiratory: no respiratory distress Auscultation: lungs clear to auscultation bilaterally Cardiovascular: Rate/Rhythm: regular rate and + tachycardic Heart Sounds: normal S1 and normal S2 Extremities: + AV fistula (left BC AVF with thrill and bruit.); no edema Gastrointestinal (Abdomen): Percussion/Palpation: abdomen soft; abdomen nontender obese, non tender. Musculoskeletal: Extremities: extremities normal to inspection Skin: no rashes Neurologic: no focal motor deficits Psychiatric: Orientation: alert and oriented x 3 Affect: euthymic affect Results & Data ([facility]) Vital Signs (Past 12 Hours) Vital Signs Temp Pulse Pulse Resp BP Pulse Ox O2 Del Method 07/30/22 07:30 Room Air 07/30/22 06:18 120 H 07/30/22 07:20 36.6 C 114 H 17 102/63 93 Nasal Cannula 07/30/22 03:00 36.8 C 113 H 20 98/58 L 92 Nasal Cannula 07/30/22 00:32 116 H O2 Flow Rate 07/30/22 07:30 07/30/22 06:18 07/30/22 07:20 2 07/30/22 03:00 2 07/30/22 00:32 PG Care Time/CCT Total # of Minutes Spent Total Time Spent with Patient: Total time spent is greater than 50% in coordination of care (as documented) at patient's floor/unit and/or counseling patient: Coding Level of Care Code 36758 Inpt Consult Level 5 Diagnoses End stage renal disease N18.6 Anemia D64.9 Hypotension I95.9 Fluid overload E87.70 Hypervolemia type: unspecified Diabetes mellitus, type 2 E11.9 Paroxysmal atrial fibrillation I48.0 (1) Fluid overload Hypervolemia type: unspecified Qualified Code(s): E87.70 - Fluid overload, unspecified
--- NOTE | 2022-07-30 11:03 | Cardiology Consultation ---
Date of Consultation July 30, 2022 Assessment & Plan (1) Paroxysmal atrial flutter: (2) Hypotension: (3) Anticoagulant long-term use: (4) Chronic diastolic congestive heart failure: Plan 62-year-old woman with recurrent atrial flutter whose management is complicated by mild but apparently asymptomatic hypotension. Given that this is not an isolated phenomenon (she has had diltiazem held before), in the absence of contraindications to beta-blockers would favor discontinuing diltiazem and initiating beta-makayla (could use metoprolol tartrate 25 mg every 8 hours initially as inpatient then change to long-acting agent upon discharge). Her rate is not particularly excessive and she is asymptomatic, so gentle titration of beta-makayla is warranted. As noted, she is chronically anticoagulated with apixaban. She appears only minimally hypervolemic, to my eye chest x-ray shows only mild vascular congestion with clear costophrenic angles (no effusions) and no overt evidence of CHF (mild cephalization but no peribronchial cuffing or curly B- lines). Defer to nephrology regarding volume unloading, but in the absence of more compelling symptoms would be cautious about major volume reduction given her tendency to hypotension. Did discuss with the patient the importance of salt/sodium restriction. Minimally elevated/flat troponin curve is nonspecific in the context of chronic renal failure, no symptoms to suggest myocardial ischemia and prior nuclear scan was benign. Will continue to follow while patient is hospitalized, although likely if she continues to do well once her metoprolol has been initiated and titrated overnight she likely could be discharged home. History of Present Illness Reason for Consultation: Atrial flutter/hypotension Requesting Physician: Sonal Ovalles MD Attending Physician: Sonal Ovalles MD History of Present Illness 62-year-old woman with history of paroxysmal atrial flutter (diltiazem/apixaban), end-stage renal disease (hemodialysis), diabetes mellitus, dyslipidemia, and hypertension who was admitted 07/29/2022 after cardiology office visit when she was noted to be mildly hypotensive with recurrent atrial flutter and rapid ventricular rate (117 bpm on ECG). She noted some degree of dyspnea on exertion at the time of her office visit, but states that this has been constant over the past several weeks. No orthopnea, PND, or significant leg edema. No chest pain or subjective palpitati ons. No lightheadedness, presyncope, or syncope. Of note, she has complained of intermittent lightheadedness in the past and has had her diltiazem held at times. She does not recall having been on a beta- makayla or any contraindication to beta-makayla. After admission yesterday, her diltiazem was held, her ventricular response to atrial flutter has been in the 100-120 bpm range and has essentially been asymptomatic. Her blood pressure remains borderline low, systolic blood pressure in the 80-90 mmHg range yesterday and 90-100 mmHg range today. At the time of my evaluation this morning, she had no somatic complaints at rest. Allergies Allergy/AdvReac Type Severity Reaction Status Date / Time atorvastatin [From Lipitor] AdvReac Mild Muscle Pain Verified 07/29/22 19:13 venlafaxine [From Effexor] AdvReac Mild Not Verified 07/29/22 19:13 helpful for depression/neuropathy management Home Medications Medication Instructions Recorded Confirmed Type Saccharomyces boulardii 250 mg 250 mg PO DAILY 03/22/19 07/29/22 History capsule Accu-Chek Guide Glucose Meter #1 ea 07/07/19 07/29/22 Rx (blood-glucose meter) cinacalcet 30 mg tablet 30 mg PO DAILY 09/27/19 07/29/22 History sucroferric oxyhydroxide 500 mg 1,000 mg PO TID 12/20/19 07/29/22 History chewable tablet (Velphoro) Accu-Chek Fastclix Lancet Drum #102 ea 12/25/20 07/29/22 Rx (lancets) sennosides 8.6 mg tablet (Senokot) 8.6 mg PO DAILY PRN Constipation 12/25/20 07/29/22 History vitamin B complex-vitamin C-folic 1 tab PO DAILY 12/25/20 07/29/22 History acid 0.8 mg tablet (Renal-Krishna) cholecalciferol (vitamin D3) 50 50 mcg PO DAILY 11/05/21 07/29/22 History mcg (2,000 unit) capsule gabapentin 400 mg capsule 400 mg PO HS #30 caps 12/06/21 07/29/22 Rx diltiazem HCl 180 mg capsule,24 180 mg PO DAILY #90 caps 12/16/21 07/29/22 Rx hr,extended release rosuvastatin 10 mg tablet 10 mg PO DAILY #90 tabs 12/16/21 07/29/22 Rx syringe with needle, safety 3 mL #4 ea 12/18/21 07/29/22 Rx 25 gauge x 1" (BD SafetyGlide Syringe) Tresiba FlexTouch U-200 200 100 unit (0.5 mL) subcut QAM 30 01/27/22 07/29/22 Rx unit/mL (3 mL) subcutaneous pen days #18 mL (insulin degludec) icosapent ethyl 1 gram capsule 2 g PO BID #360 caps 01/27/22 07/29/22 Rx (Vascepa) cyanocobalamin (vitamin B-12) 1,000 mcg IM ONCE #1 mL 01/30/22 07/29/22 Rx 1,000 mcg/mL injection solution insulin syringe-needle U-100 0.5 #100 ea 01/30/22 07/29/22 Rx mL 30 gauge x 1/2" (BD Insulin Syringe Ultra-Fine) pen needle, diabetic 32 gauge x #200 ea 03/10/22 07/29/22 Rx 5/32" (BD Ultra-Fine Kaylin Pen Needle) insulin aspart U-100 100 unit/mL 90 unit (0.9 mL) subcut DAILY 30 03/17/22 07/29/22 Rx (3 mL) subcutaneous pen (Novolog days #30 mL Flexpen U-100 Insulin aspart) Accu-Chek Guide test strips (blood #100 ea 03/19/22 07/29/22 Rx sugar diagnostic) apixaban 5 mg tablet 5 mg PO BID #180 tabs 03/21/22 07/29/22 Rx duloxetine 30 mg capsule,delayed 30 mg PO BID #60 caps 03/21/22 07/29/22 Rx release gabapentin 100 mg capsule 200 mg PO QAM #60 caps 06/26/22 07/29/22 Rx peg 3350-electrolytes 236 240 ml PO Q10M #4,000 mL 07/15/22 07/29/22 Rx gram-22.74 gram-6.74 gram-5.86 gram solution (GaviLyte-G) calcium acetate(phosphat bind) 667 1,334 mg PO TIDM 07/29/22 07/29/22 History mg capsule Patient History Medical History Abdominal bloating Anticoagulant long-term use Depression Diabetes mellitus, type 2 IDDM Dialysis patient M/W/F [facility] [place] Dietary counseling and surveillance End stage renal disease History of anemia History of blood transfusion S/P SURGERY History of kidney stones Hyperlipidemia Hypertension Morbid obesity Paroxysmal atrial fibrillation follows with Dr. Salvador>reason for eliquis Paroxysmal atrial flutter Peripheral neuropathy Retinopathy "MILD" Skin lesion Surgical History Difficult intubation 11/21/14= EXPLORATORY LAPAROTOMY= GRADE VIEW 1, GLIDESCOPE #3, ETT 7.5 AT [facility] H/O exploratory laparotomy History of appendectomy + BOWEL RESECTION 2/2 PERFORATION History of bowel resection PERFORATED APPENDIX SURGERY History of cardiac cath "many years ago" no stents History of cataract surgery bilateral eyes History of colonoscopy History of discectomy LUMBAR x2 History of hysterectomy ROD-BSO History of tooth extraction Hx of section X2 Hx of vascular surgery LEFT BASELIC VEIN AVF= 05/19/18= MAC SEDATION AT [facility] S/P arteriovenous (AV) fistula creation left arm S/P dilation and curettage D&E Family History Grandmother Family history of diabetes mellitus Family/Other Family history of diabetes mellitus Uncle Colorectal cancer Paternal Father Esophageal cancer Mother Methicillin resistant pneumonia due to Staphylococcus aureus Other No family history of adverse response to anesthesia Denies family history of Ovarian cancer Breast cancer Uterine cancer Social History Smoking Status: Never smoker Second Hand Exposure: No; Do You Dip or Chew Tobacco: No; Hx Alcohol Use: No Hx Substance Use: No Preferred Language: Mauritanian Communication Ability: Effective Visual Impairment: No Limitations Fnp Required: No Beliefs That Will Affect Care: None marital status: Current Living Situation: Alone Other Information That Helps Us Care for You: No Feels Safe at Home: Yes Safety Concerns: Feels Safe At This Time Seatbelt Use: always Assistive Devices: Denture - Upper, Glasses and Walker Physical Exam Physical Exam: Adult white female in no distress. Afebrile. BP as noted in HPI. Heart rate as noted in the HPI. Skin: no ecchymoses or generalized lesions. HEENT: unremarkable. Neck: Jugular venous pulse one third of the way to the angle of the jaw at 90 degrees, no carotid bruits. Lungs: clear bilaterally, no crackles or wheezes. No accessory muscle use.. Cardiac: Irregular/slightly tachycardic rhythm, no obvious murmur or gallop. Abdomen: benign. Extremities: no edema, pulses intact. Neurologic: normal affect and conversation, nonfocal. Results & Data ([facility]) Laboratory Results Troponin mildly elevated but flat (26, 26, 27, 24). Normal electrolytes, BUN 48, creatinine 8.61. Diagnostic Findings ECG showed atrial flutter with variable AV block and ventricular rate of 104 bpm. Incomplete right bundle branch block, possible anterior infarct. Compared with ECG of 05/13/2018, sinus rhythm no longer present, criteria for anterior infarct now present, heart rate is increased by 33 bpm. Chest x-ray showed cardiomegaly with mild pulmonary vascular congestion. Current echocardiogram technically difficult but shows hyperdynamic LV with moderate LVH, moderately dilated RV with severe RVH but normal systolic function, no obvious valvular disease on technically limited Doppler. Compared with 2015 study, moderate LVH is developed right heart findings now seen (possibly due to better visualization). Myocardial perfusion study 2019 showed no infarct or ischemia, LV systolic function normal PG Care Time/CCT Total # of Minutes Spent Total Time Spent with Patient: Total time spent is greater than 50% in coordination of care (as documented) at patient's floor/unit and/or counseling patient: Coding Level of Care Code 10461 Inpt Consult Level 4 Diagnoses Paroxysmal atrial flutter I48.92 Hypotension I95.9 Anticoagulant long-term use Z79.01 Chronic diastolic congestive heart failure I50.32
[2022-07-30] MEDS ORDERED: LANTUS PER UNIT CHARGE SQ SCH (12:00)
--- NOTE | 2022-07-30 13:05 | Pharmacy Report ---
Pharmacy Glycemic Short Note 2 - Date of Service July 30, 2022 - Glycemic Short BSG Results (Last 24 hours): 07/29/22 07/29/22 07/29/22 14:04 19:45 19:47 Glucose 138 H POC Glucose 63 L* 65 L* 07/29/22 07/30/22 07/30/22 20:13 01:54 01:56 Glucose POC Glucose 75 66 L* 67 L* 07/30/22 07/30/22 07/30/22 02:19 03:59 06:34 Glucose 99 POC Glucose 72 99 07/30/22 07/30/22 07:19 11:23 Glucose POC Glucose 126 H 129 H OUTPATIENT ANTIDIABETIC REGIMEN: * Tresiba 100 units SQ QAM * Humalog SSI: (40 units with large meal, 20 units small meal, 10 units with snack) ASSESSMENT: * Deandra is a 62 year old type 2 diabetic patient who presented to [facility] due to hypotension mid-day on 07/29. * Prior to admission, she was able to administer her morning dose of Tresiba; Subsequent BSG's yesterday were below goal. Today, her BSG's are trending up given the omission of her morning dose of Tresiba while inpatient. 50% reduced dose Lantus (to account for lower BSG's yesterday) will be started to accommodate for dietary changes while admitted while also offering basal coverage. * Patient was started on a weight based stress of 2 correction factor/carb ratio of 15 and 6 units last night, which has been well tolerated. PLAN FOR INPATIENT GLYCEMIC CONTROL: * Hold outpatient diabetes medications * Basal insulin * Lantus 50 units SQ QAM * Bolus insulin * NovoLog per scale ACHS or Q6hrs while NPO * Goal Range: Low 110 mg/dL - High 140 mg/dL * Correction Factor: 15 mg/dL/unit * Nutritional / Prandial insulin per carb ratio of 1 unit per 6 grams CHO consumed
[2022-07-30] MEDS: METOPROLOL TARTRATE 25 MG TAB PO SCH ×2 (13:15→20:46)
[2022-07-30] MEDS ORDERED: MIDODRINE HCL 10 MG TAB PO ONE (13:30)
[2022-07-30] MEDS: GABAPENTIN 100 MG CAP PO SCH (20:46)
[2022-07-30] MEDS: MELATONIN 3 MG TAB PO PRN (23:21)
[2022-07-31] MEDS: METOPROLOL TARTRATE 25 MG TAB PO SCH ×3 (03:50→20:24)
[2022-07-31 07:34] LABS: Hematocrit (blood only) 43.6 % (34.1-44.9); Mean Corpuscular Hgb Conc 32.1 g/dL (32.0-36.0); Mean Corpuscular Volume 99.5 fL (80.0-100.0); Mean Platelet Volume 10.5 fL (9.4-12.3); Nucleated RBC # (auto) 0.02 K/uL (0-0); Nucleated RBC % (auto) 0.3 %; Platelet Count 165 K/uL (130-400); RDW Coefficient of Variation 14.6 % (11.5-14.5); RDW Standard Deviation 53.8 fL (36.4-46.3); Red Blood Count 4.38 M/uL (3.93-5.22); White Blood Count 7.61 K/ul (4.8-10.8)
--- NOTE | 2022-07-31 07:48 | Hospitalist Progress Note ---
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 fib on apixaban, depression who presents recommended for admission from the cardiology office who was found to be short of breath with relative hypotension on follow- up 07/29 with her last dialysis session 07/28 She notes she checks her BP at home and typically 80s systolic without symptoms but has dropped as low as the 60s and she feels lightheaded/dizzy with such Weight unchanged from last week 136.6kg on admit. Weight 139.8kg this morning Nephrology on consult HD on 07/30 for 1.8L, given midodrine 10mg 1 hour into treatment Planning same midodrine prior to treatment for 08/01 Patient w/ ESRD on HD, CrCl not reportable to -12 over past several years, and on gabapentin 200mg QAm/400mg QPM with max dose 300mg daily --> changed to 100mg QAM, 200mg QPM -- new rx at d/c Cardiology consulted, Dr Diaz ECHO w/ moderate LVH and right heart findings now seen compared to prior study Of note, unclear if BPs actually accurate given afib/flutter. Discussed with cardiology and changed metoprolol tartrate 25mg Q8H parameters to include to give if SBP >80 as patient only got 1 dose over past 24 hours. Rates in 90-120s on telemetry ESRD, MWF dialysis 2/2 diabetic nephropathy HD MW, Nephrology on consult -- HD 07/30 for 1.8L. Dry weight adjusted by primary service for tomorrow Lowered dose gabapentin given ESRD, discussed with patient. Neuropathy symptoms at baseline currently Paroxysmal A. fib Afib/flutter -- rates 90-110/120ss. Did endorse feeling palpitations in evening on occassion, not during the day Remains on Eliquis BID Diltiazem held on admit for hypotension, cards consulted for assistance as above, metoprolol tartrate w/ adjustment in parameters to avoid missed doses Monitor on telemetry, keep mag >2, K>4 Dyslipidemia Continue rosuvastatin 10 mg daily nightly Type II DM On aspart SSI and Tresiba 100 unit every morning at home Based on basal requirements: Basal insulin 50 units twice daily, CF 10, ratio 3. Weight-based: Basal 23 twice daily, CF 15, carb ratio 6 Will admit on basal 30 twice daily, CF 12, carb ratio 5. 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 AVOID use -- will need continued discussions but she chooses to continue to want to utilize this (2) Chronic diastolic congestive heart failure: (3) Diabetes mellitus, type 2: (4) Diabetic nephropathy associated with type 2 diabetes mellitus: (5) Hyperlipidemia: (6) Hypertension: (7) Morbid obesity: (8) 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 saw Dr Robertson this morning, to get midodrine prior to her HD sessions. Dry we ight has been adjusted as she does not believe she is holding onto fluid. No increased LE edema/SOB. Lungs clear to auscultation albeit diminished in the bases. Neuropathy not any worse in legs with adjustments to her gabapentin, discussed continuing 100mg QAM and 200mg QPM at discharge given kidney function. She would like to continue the cymbalta as it's the only thing that really helps the neur opathy but also for her mood/depression. Adjustment to parameters to her metoprolol per discussion with cards, unlikely BPs accurate with her aflutter. Denies any CP/SOB, [facility] but she notes that's when nothing else is going on and possibly she is able to focus on her heart beat and notices it. No fever/chills. Questions addressed at this time. Review of Systems Review of Systems: All systems reviewed & are unremarkable except as noted in HPI & below Physical Exam Physical Exam: General: WD/WN obese female sitting up in recliner at window, NAD HEENT: normocephalic, atraumatic, mmm, trachea midline, thick neck Resp: diminished int he bases, no cough/tachypnea, on room air CV: irregularly irregular (rates 100-110s), no obvious m/r/g, no pitting edema/calf tenderness, pulses palpable GI: +BS, soft/NT, obese MSK/Neuro: no focal deficit, no slurred speech/facial droop Psych: AOx3, pleasant and cooperative Results & Data Results & Data ([facility]) Vital Signs (Past 12 Hours) Vital Signs Temp Pulse Pulse Resp BP Pulse Ox O2 Del Method 07/31/22 07:10 37.0 C 108 H 18 84/52 L 92 Room Air 07/31/22 03:34 37.0 C 112 H 20 80/53 L 91 Room Air 07/30/22 23:42 115 H 07/30/22 22:00 37 C 113 H 20 92/62 L 93 Room Air 07/30/22 22:05 Room Air 07/30/22 19:50 36.9 C 119 H 20 111/65 94 Room Air Laboratory Results 07/31/22 07/31/22 07/31/22 Range/Units 11:35 07:15 07:15 WBC (4.8-10.8) K/ul RBC (3.93-5.22) M/uL Hgb (12.0-16.0) g/dl Hct (34.1-44.9) % MCV (80.0-100.0) fL MCH (25.0-34.0) pg MCHC (32.0-36.0) g/dL RDW Std Deviation (36.4-46.3) fL RDW Coeff of Carolynn (11.5-14.5) % Plt Count (130-400) K/uL MPV (9.4-12.3) fL Absolute Nucleated RBC (0-0) K/uL Nucleated RBC % (auto) % Sodium 136 (136-145) mmol/L Potassium 4.3 (3.5-5.1) mmol/L Chloride 99 (98-107) mmol/L Carbon Dioxide 29 (21-32) mmol/L Anion Gap 8 (3-11) BUN 35 H (6-23) mg/dl Creatinine 6.62 H* D (0.6-1.2) mg/dl Est Cr Clr Drug Dosing 13.2 ml/min Est GFR ( Amer) 7.2 ml/min Est GFR (Non-Af Amer) 6.2 ml/min BUN/Creatinine Ratio 5.3 L (10-20) Glucose 123 H (70-99(Fasting)) mg/dl POC Glucose 166 H (70-99) mg/dl Calcium 8.9 (8.5-10.1) mg/dl Magnesium 2.4 (1.7-2.4) mg/dl TSH 1.826 (0.300-4.500) uIu/ml 07/31/22 07/31/22 07/30/22 Range/Units 07:15 07:09 20:04 WBC 7.61 (4.8-10.8) K/ul RBC 4.38 (3.93-5.22) M/uL Hgb 14.0 (12.0-16.0) g/dl Hct 43.6 (34.1-44.9) % MCV 99.5 (80.0-100.0) fL MCH 32.0 (25.0-34.0) pg MCHC 32.1 (32.0-36.0) g/dL RDW Std Deviation 53.8 H (36.4-46.3) fL RDW Coeff of Carolynn 14.6 H (11.5-14.5) % Plt Count 165 (130-400) K/uL MPV 10.5 (9.4-12.3) fL Absolute Nucleated RBC 0.02 H (0-0) K/uL Nucleated RBC % (auto) 0.3 % Sodium (136-145) mmol/L Potassium (3.5-5.1) mmol/L Chloride (98-107) mmol/L Carbon Dioxide (21-32) mmol/L Anion Gap (3-11) BUN (6-23) mg/dl Creatinine (0.6-1.2) mg/dl Est Cr Clr Drug Dosing ml/min Est GFR ( Amer) ml/min Est GFR (Non-Af Amer) ml/min BUN/Creatinine Ratio (10-20) Glucose (70-99(Fasting)) mg/dl POC Glucose 120 H 197 H (70-99) mg/dl Calcium (8.5-10.1) mg/dl Magnesium (1.7-2.4) mg/dl TSH (0.300-4.500) uIu/ml 07/30/22 Range/Units 16:32 WBC (4.8-10.8) K/ul RBC (3.93-5.22) M/uL Hgb (12.0-16.0) g/dl Hct (34.1-44.9) % MCV (80.0-100.0) fL MCH (25.0-34.0) pg MCHC (32.0-36.0) g/dL RDW Std Deviation (36.4-46.3) fL RDW Coeff of Carolynn (11.5-14.5) % Plt Count (130-400) K/uL MPV (9.4-12.3) fL Absolute Nucleated RBC (0-0) K/uL Nucleated RBC % (auto) % Sodium (136-145) mmol/L Potassium (3.5-5.1) mmol/L Chloride (98-107) mmol/L Carbon Dioxide (21-32) mmol/L Anion Gap (3-11) BUN (6-23) mg/dl Creatinine (0.6-1.2) mg/dl Est Cr Clr Drug Dosing ml/min Est GFR ( Amer) ml/min Est GFR (Non-Af Amer) ml/min BUN/Creatinine Ratio (10-20) Glucose (70-99(Fasting)) mg/dl POC Glucose 104 H (70-99) mg/dl Calcium (8.5-10.1) mg/dl Magnesium (1.7-2.4) mg/dl TSH (0.300-4.500) uIu/ml PG Care Time/CCT Total # of Minutes Spent Total Time Spent with Patient: Total time spent is greater than 50% in coordination of care (as documented) at patient's floor/unit and/or counseling patient: Coding Level of Care Code 26266 Subseq Hosp Care Lvl 3 Diagnoses Hypotension I95.9 Chronic diastolic congestive heart failure I50.32 Diabetes mellitus, type 2 E11.9 Diabetic nephropathy associated with type 2 diabetes mellitus E11.21 Hyperlipidemia E78.5 Hypertension I10 Morbid obesity E66.01 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
[2022-07-31 08:07] LABS: BUN Creatinine Ratio 5.3 (10-20); Calcium 8.9 mg/dl (8.5-10.1); Creatinine Clr Calc Pharmacy 13.2 ml/min; Est GFR (African American) 7.2 ml/min; Est GFR (Non-African American) 6.2 ml/min; Magnesium 2.4 mg/dl (1.7-2.4); Potassium 4.3 mmol/L (3.5-5.1)
--- NOTE | 2022-07-31 08:46 | Electrocardiogram Report ---
Test Reason : Blood Pressure : / mmHG Vent. Rate : 111 BPM Atrial Rate : 111 BPM P-R Int : 000 ms QRS Dur : 120 ms QT Int : 360 ms P-R-T Axes : 000 -63 -06 degrees QTc Int : 489 ms Atrial flutter Left axis deviation Right bundle branch block Old Anterior infarct Abnormal ECG When compared with ECG of 29-JUL-2022 13:49, No significant change Confirmed by Alen Diaz [id number]) on 07/31/2022 8:45:59 AM Referred By: Jerry Salvador Confirmed By:Alen Diaz
[2022-07-31] MEDS ORDERED: LANTUS PER UNIT CHARGE SQ SCH (09:00)
[2022-07-31] MEDS: INSULIN ASPART PER UNIT SC SCH ×4 (09:09→20:37)
[2022-07-31] MEDS: GABAPENTIN 100 MG CAP PO SCH ×2 (09:10→20:24)
[2022-07-31] MEDS: APIXABAN 5 MG TABLET PO SCH ×2 (09:10→20:24)
[2022-07-31] MEDS: ROSUVASTATIN CALCIUM 10 MG TAB PO SCH (09:10)
[2022-07-31] MEDS: DULoxetine HCL 30 MG CAP PO SCH ×2 (09:10→20:24)
--- NOTE | 2022-07-31 11:42 | Nephrology Progress Note ---
Date of Service July 31, 2022 Assessment & Plan (1) End stage renal disease: (2) Anemia: (3) Hypotension: (4) Fluid overload: (5) Diabetes mellitus, type 2: (6) Paroxysmal atrial fibrillation: Plan ESRD secondary to diabetic nephropathy, has been on hemodialysis since 2015 via left brachiocephalic AV fistula, dialysis at [facility]. Presented with concern over difficulty reaching dry weight with persistent hypotension and tachycardia. Clinically she does not look like overtly volume overloaded. Had dialysis yesterday, blood pressure dropped after 1 hour into dialysis and given midodrine 10 mg with slight improvement and was able to do 1.8 L UF. He clinically she continues to look at you volume a without any sign of volume overload. --plan for dialysis tomorrow, will increase dry weight to 135.5 kg and increase as tolerated. Use midodrine 10 mg before dialysis. --Left arm nephrology precautions, dose medications for EGFR less than 10 -- continue phosphate binder and renal vitamins Will follow Admission and Anticipated Discharge Date Admission Date: July 29, 2022 Carlitos Liriano was seen and evaluated this morning. Overall doing well, denies SOB, CP, dizziness, lightheadedness, visual changes. BP low. Review of Systems Review of Systems: Details ROS was done and pertinent positives and negatives were mentioned above. Physical Exam Constitutional: WD/WN, vitals as above no acute distress Neck: normal visual inspection Respiratory: no respiratory distress Auscultation: lungs clear to auscultation bilaterally Cardiovascular: Rate/Rhythm: regular rate and + tachycardic Heart Sounds: normal S1 and normal S2 Extremities: + AV fistula (left BC AVF with thrill and bruit.); no edema Musculoskeletal: Extremities: extremities normal to inspection Skin: no rashes Neurologic: no focal motor deficits Psychiatric: Orientation: alert and oriented x 3 Affect: euthymic affect Results & Data ([facility]) Vital Signs (Past 12 Hours) Vital Signs Temp Pulse Pulse Resp BP Pulse Ox O2 Del Method 07/31/22 10:49 90/58 L 07/31/22 10:52 Room Air 07/31/22 10:48 36.5 C 120 H 20 92/56 L 92 Room Air 07/31/22 09:55 111 H 07/31/22 07:10 37.0 C 108 H 18 84/52 L 92 Room Air 07/31/22 03:34 37.0 C 112 H 20 80/53 L 91 Room Air 07/30/22 23:42 115 H PG Care Time/CCT Total # of Minutes Spent Total Time Spent with Patient: Total time spent is greater than 50% in coordination of care (as documented) at patient's floor/unit and/or counseling patient: Coding Level of Care Code 30817 Subseq Hosp Care Lvl 3 Diagnoses End stage renal disease N18.6 Anemia D64.9 Hypotension I95.9 Fluid overload E87.70 Hypervolemia type: unspecified Diabetes mellitus, type 2 E11.9 Paroxysmal atrial fibrillation I48.0 (1) Fluid overload Hypervolemia type: unspecified Qualified Code(s): E87.70 - Fluid overload, unspecified
--- NOTE | 2022-07-31 17:29 | Cardiology Progress Note ---
Date of Service July 31, 2022 Assessment & Plan (1) Paroxysmal atrial flutter: (2) Hypotension: (3) Anticoagulant long-term use: (4) Chronic diastolic congestive heart failure: Plan Patient remains asymptomatic and appears euvolemic but still has suboptimally controlled ventricular response to her permanent atrial fibrillation and has mild hypotension without evidence of hypoperfusion. Recommended changing the metoprolol administration parameters to hold dosing only if systolic blood pressure less than 80 mmHg to allow low doses of beta- makayla to be administered in the presence of mild/asymptomatic hypotension in order to achieve better heart rate control. If she demonstrates symptomatic hypotension or evidence of hypoperfusion, would need to consider changing to amiodarone as a rate control (rather than rhythm control) agent or utilizing very low-dose digoxin (125 mcg every other day). Suspect that she has gained weight through increased caloric intake and is not actually volume overloaded, therefore avoiding attempts at aggressive volume unloading would be appropriate in order to avoid exacerbating her mild hypotension. Certainly, she should remain off diltiazem. Admission and Anticipated Discharge Date Admission Date: July 29, 2022 Subjective Patient was comfortable and had no complaints. No chest pain, lightheadedness, dyspnea, or subjective palpitations. Telemetry showed atrial fibrillation with ventricular rate 100-120 bpm. She did not receive a beta-makayla dose this morning due to asymptomatic hypotension. Physical Exam Physical Exam: No distress. BP mildly hypotensive (89/56 mmHg). Pulse 110 bpm and irregular. Skin: no ecchymoses or generalized lesions. HEENT: unremarkable. Neck: Jugular venous pulse just above the clavicle at 90 degrees, no carotid bruits. Lungs: clear bilaterally, no crackles or wheezes. No accessory muscle use. Cardiac: Irregular/slightly tachycardic rhythm, no obvious murmur or gallop. Abdomen: benign. Extremities: no edema, pulses intact. Neurologic: normal affect and conversation, nonfocal. Results & Data ([facility]) Laboratory Results Normal electrolytes, BUN 35, creatinine 6.62. Diagnostic Findings ECG today showed atrial flutter with ventricular rate 111 bpm, right bundle branch block, possible old anterior infarct. Compared with 07/29/2022 ECG, no significant change. PG Care Time/CCT Total # of Minutes Spent Total Time Spent with Patient: Total time spent is greater than 50% in coordination of care (as documented) at patient's floor/unit and/or counseling patient: Coding Level of Care Code 81765 Subseq Hosp Care Lvl 3 Diagnoses Paroxysmal atrial flutter I48.92 Hypotension I95.9 Anticoagulant long-term use Z79.01 Chronic diastolic congestive heart failure I50.32
[2022-07-31] MEDS: MELATONIN 3 MG TAB PO PRN (20:27)
[2022-08-01] MEDS: METOPROLOL TARTRATE 25 MG TAB PO SCH ×2 (04:49→12:04)
[2022-08-01] MEDS: INSULIN ASPART PER UNIT SC SCH ×3 (08:18→17:00)
[2022-08-01] MEDS: APIXABAN 5 MG TABLET PO SCH (08:19)
[2022-08-01] MEDS: ROSUVASTATIN CALCIUM 10 MG TAB PO SCH (08:19)
[2022-08-01] MEDS: GABAPENTIN 100 MG CAP PO SCH (08:19)
[2022-08-01] MEDS: DULoxetine HCL 30 MG CAP PO SCH (08:19)
--- NOTE | 2022-08-01 08:34 | Hospitalist Progress Note ---
Date of Service August 01, 2022 Assessment & Plan Admission and Anticipated Discharge Date Admission Date: July 29, 2022 Results & Data Results & Data ([facility]) Vital Signs (Past 12 Hours) Vital Signs Temp Pulse Pulse Pulse Resp BP Pulse Ox 08/01/22 07:55 36.7 C 99 H 20 84/57 L 91 08/01/22 07:04 98 H 08/01/22 04:48 106 H 20 83/51 L 90 08/01/22 02:43 36.7 C 106 H 18 85/56 L 90 07/31/22 23:51 109 H 07/31/22 22:43 37.3 C 110 H 18 96/66 L 93 O2 Del Method 08/01/22 07:55 Room Air 08/01/22 07:04 08/01/22 04:48 Room Air 08/01/22 02:43 Room Air 07/31/22 23:51 07/31/22 22:43 Room Air PG Care Time/CCT Total # of Minutes Spent Total Time Spent with Patient: Total time spent is greater than 50% in coordination of care (as documented) at patient's floor/unit and/or counseling patient: Coding
[2022-08-01] MEDS ORDERED: MIDODRINE HCL 10 MG TAB PO SCH (09:00)
[2022-08-01] MEDS ORDERED: LANTUS PER UNIT CHARGE SQ SCH (09:00)
[2022-08-01 09:56] LABS: Albumin Level 3.5 gm/dl (3.4-5.0); Calcium 8.8 mg/dl (8.5-10.1); Creatinine Clr Calc Pharmacy 9.6 ml/min; Est GFR (African American) 4.9 ml/min; Est GFR (Non-African American) 4.2 ml/min; Magnesium 2.5 mg/dl (1.7-2.4); Phosphorus 8.5 mg/dl (2.5-4.9); Potassium 4.6 mmol/L (3.5-5.1)
--- NOTE | 2022-08-01 10:13 | Nephrology Progress Note ---
Date of Service August 01, 2022 Assessment & Plan (1) End stage renal disease: (2) Anemia: (3) Hypotension: (4) Fluid overload: (5) Diabetes mellitus, type 2: (6) Paroxysmal atrial fibrillation: Plan ESRD secondary to diabetic nephropathy, has been on hemodialysis since 2015 via left brachiocephalic AV fistula, dialysis at [facility]. Presented with concern over difficulty reaching dry weight with persistent hypotension and tachycardia. Clinically she does not look like overtly volume overloaded. Overall feeling well, no dizziness, lightheadedness. BP remains low, TSH was normal, electrolyte acceptable. --plan for dialysis today, will increase dry weight to 135.5 kg and increase as tolerated, midodrine 10 mg before dialysis. --Left arm nephrology precautions, dose medications for EGFR less than 10 --continue phosphate binder and renal vitamins Will follow Admission and Anticipated Discharge Date Admission Date: July 29, 2022 Carlitos Liriano was seen and evaluated this morning. Overall doing well, BP remains low but denies SOB, CP, dizziness, lightheadedness, visual changes. BP low. Review of Systems Review of Systems: Details ROS was done and pertinent positives and negatives were mentioned above. Physical Exam Constitutional: WD/WN, vitals as above no acute distress Neck: normal visual inspection Respiratory: no respiratory distress Auscultation: lungs clear to auscultation bilaterally Cardiovascular: Rate/Rhythm: regular rate and + tachycardic Heart Sounds: normal S1 and normal S2 Extremities: + AV fistula (left BC AVF with thrill and bruit.); no edema Musculoskeletal: Extremities: extremities normal to inspection Skin: no rashes Neurologic: no focal motor deficits Psychiatric: Orientation: alert and oriented x 3 Affect: euthymic affect Results & Data ([facility]) Vital Signs (Past 12 Hours) Vital Signs Temp Pulse Pulse Pulse Resp BP Pulse Ox 08/01/22 07:55 36.7 C 99 H 20 84/57 L 91 08/01/22 07:04 98 H 08/01/22 04:48 106 H 20 83/51 L 90 08/01/22 02:43 36.7 C 106 H 18 85/56 L 90 07/31/22 23:51 109 H 07/31/22 22:43 37.3 C 110 H 18 96/66 L 93 O2 Del Method 08/01/22 07:55 Room Air 08/01/22 07:04 08/01/22 04:48 Room Air 08/01/22 02:43 Room Air 07/31/22 23:51 07/31/22 22:43 Room Air PG Care Time/CCT Total # of Minutes Spent Total Time Spent with Patient: Total time spent is greater than 50% in coordination of care (as documented) at patient's floor/unit and/or counseling patient: Coding Level of Care Code 89661 Subseq Hosp Care Lvl 2 Diagnoses End stage renal disease N18.6 Anemia D64.9 Hypotension I95.9 Fluid overload E87.70 Hypervolemia type: unspecified Diabetes mellitus, type 2 E11.9 Paroxysmal atrial fibrillation I48.0 (1) Fluid overload Hypervolemia type: unspecified Qualified Code(s): E87.70 - Fluid overload, unspecified
--- NOTE | 2022-08-01 10:25 | Discharge Summary ---
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 fib on apixaban, depression who presents recommended for admission from the cardiology office who was found to be short of breath with relative hypotension on follow- up 07/29 with her last dialysis session 07/28 At time of ER evaluation patient is tachycardic, blood pressure 83/59, creatinine is 7. 3 after last dialysis 1 day ago, potassium is normal at 4.3. Troponin high-sensitivity is 26.2, COVID is negative. CXR shows cardiomegaly with pulmonary vascular congestion without pleural effusion or overt edema. Per Cardiology Note 06/12/2022: 1. Dobutamine stress echo 11/30/2013: Nondiagnostic. Heart rate achieved only 62% MPHR. Hypertensive response to dobutamine. EF 55-60%. No significant valvular abnormalities. 2. Echo 02/02/2017: Normal LV size, wall motion, systolic function. EF 50-55%. Mild LVH. Trace to mild MR. 3. Echo 10/19/2018: Normal LV size, wall motion, systolic function. EF 60-65%. Moderate LVH. Mild left atrial dilation. No significant valvular abnormalities. 4. Nuclear stress 11/04/2018: Negative for ischemia. EF 58%. 5. Event monitor 01/31/2019 to 03/01/2019: Atrial flutter with RVR. No reported symptoms. No leukocytosis Hemoglobin 14.4 Sodium 139, potassium 4.3 AG 12 Creatinine is dialysis dependent. High-sensitivity troponin 26.2 COVID-negative IMPRESSION: Cardiomegaly with pulmonary vascular congestion. EKG: Comparison EKG 06/12/2022: Sinus with PVCs, right bundle branch block, QTC 450. ___ Has not been ablwe to have full dialysis treatments 2/2 hypotension and tachycardia with attempted outpatient dialysis, hypotension. Takes of 4-5 kilos per sessio nper patient and granddaughter. Dry weight was 127 kilos, at 136kg now not tolerating dialysis. Reports she has had ultrasounds to look for ascities which were negative. Endorses shortness of breath with walking No shotness of breath or chest pain at rest Does endorse inability to lay flat 2/2 orthopnea, sleeps with a wedge pillow for 2-3 years Pt has not noticed increased swelling, daughter think izzy stomach has been a little bigger/more full pt denies this although notes her pants may be a little tighter than normal. No history of chest pain at rest or when walking around Does feel fluttering/afib intermittently more often in the evening. Does not have palpitations at time of bedside assessment Endorses neuropathy. No fevers chills or sweats no cough no sputum production no nausea/vomiting/diarrhea no bloody/black BMs Appetite has been 'good, too good.' Diet has not changed. No unusually salty meeals/soups/deli meats but pt notes she does use salt 'more than I should' and daughter notes has been salting eggs and 'she has always been a salt person.' ESRD on dialysis. Has at most a very tiny trickle of urine some mornings 'not even enough to measure', functionally anuric and dialysis dependent. No burning in the abdomen, no burnding with morning trickle, no back pain. Medical History: Reviewed Medications: Reviewed. No missed doses, last took this morning at 8am Surgical History: Reviewed Allergies: Reviewed Social History: No tobacco product or etoh use. Code Status: Surrogate [phone] Aida Mathew. Full Code, discussed at bedside. Admission Exam Per Admitting Provider Physical Exam: General: A&Ox3. NAD. Cooperative. HEENT: Atraumatic, normocephalic. Vision/hearing grossly intact Pulm: CTAB A&P. Good air movement. There are no rales, trace basilar crackles which clear on deep breathing symmetrical chest rise. No increase in work of breathing. No respiratory distress. Cardiac: Irregularly irregular. Radial pulses intact and symmetrical. Abdominal: Obese, nontender, nondistended, soft. BS present. No fluid wave is present. POC abdominal ultrasound performed by ER provider without ascites Extremities: Warm, dry. C Winforms Developer strength intact bilaterally in upper extremities. Intact but symmetrically decreased sensation of soft touch in lower extremities with history of neuropathy. No pedal edema is present on admission Principal Diagnosis Hypotension,Rapid atrial flutter Discharge Exam General: WD/WN obese female sitting up in recliner at window, NAD HEENT: normocephalic, atraumatic, mmm, trachea midline, thick neck Resp: diminished int he bases, no cough/tachypnea, on room air CV: irregularly irregular (rates 100-110s), no obvious m/r/g, no pitting edema/calf tenderness, pulses palpable GI: +BS, soft/NT, obese MSK/Neuro: no focal deficit, no slurred speech/facial droop Psych: AOx3, pleasant and cooperative Discharge Data Allergies Allergy/AdvReac Type Severity Reaction Status Date / Time atorvastatin [From Lipitor] AdvReac Mild Muscle Pain Verified 07/29/22 19:13 venlafaxine [From Effexor] AdvReac Mild Not Verified 07/29/22 19:13 helpful for depression/neuropathy management Consultations 07/29/22 15:38 ED Decision to Admit Stat 07/29/22 19:22 Consult Nephrology Routine 07/30/22 10:08 Consult Cardiology Routine Ordered Studies Chest X-Ray 07/29/22 13:34 SINGLE VIEW CHEST CLINICAL HISTORY: Atypical chest pain. Fluid overload FINDINGS: An AP, portable, upright chest radiograph is compared to study dated 05/13/2018. The heart is enlarged noting atherosclerotic calcification of the thoracic ureter. There is pulmonary vascular congestion. The lungs and pleural spaces are clear noting bibasilar atelectasis. No pneumothorax is seen. The skeletal structures are osteopenic. The bony thorax is grossly intact. IMPRESSION: Cardiomegaly with pulmonary vascular congestion. ACT 112: Negative or not required by law. Electronically signed by: Jeromy Segal M.D. 07/29/2022 2:29 PM 07/29/2022 ECHOCARDIOGRAM Compared with 11/27/2014 study, moderate LVH has developed and right heart findings now seen (possibly due to better visualization). The study was technically difficult. The left ventricle is normal in size The left ventricle is hyperdynamic Ejection Fraction =>70% The left ventricular wall motion is normal. 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 fib on apixaban, depression who presents recommended for admission from the cardiology office who was found to be short of breath with relative hypotension on follow- up 07/29 with her last dialysis session 07/28 She notes she checks her BP at home and typically 80s systolic without symptoms but has dropped as low as the 60s and she feels lightheaded/dizzy with such ECHO obtained -- w/ moderate LVH and right heart findings now seen compared to prior study. *She does endorse eating salt/salty person but "tries to watch this". Strongly encouraged to limit salt at discharge Cardiology consulted -- aflutter. BPs likely not accurate but decision to d/c Cardizem and placed on metoprolol tartrate 25mg Q8H inpatient w/ reduction in hold parameters to give unless SBP <80 and she was able to tolerate such and decision to d/c on metoprolol succinate 50mg per discussion with Dr Diaz prior to d/c and have f/u with Dr Salvador outpatient Nephrology consulted, HD while inpatient and ultimately decided to start midodrine 10mg daily w/ dialysis days to help w/ BP. Also adjusted patient's dry weight given no significant LE edema/stable on room air Also reviewed medications with patient -- had been on gabapentin 600mg daily, max 300mg daily--> adjusted to 100mg QAM, 200mg QHS at discharge She is also on cymbalta which is not dialyzed however she wanted to continue this medication as it's the only thing that helps her neuropathy. Discussed should have continued discussions w/ PCP and nephrology in follow up HRs improved to 90-low 100s, asymptomatic and stable for d/c. BP actually 101/57, no lightheadedness/dizziness, mentating just fine and wanting to go home. ESRD, MWF dialysis 2/2 diabetic nephropathy HD MWF, Nephrology on consult - HD while inpatient, dry weight reduced to prevent further hypotension Midodrine 10mg for dialysis days -- short rx sent, nephrology to continue in f/u Lowered dose gabapentin given ESRD, discussed with patient. Neuropathy symptoms at baseline currently, also discussed Cymbalta really not ideal given her kidney function Paroxysmal A.fib, here with rapid atrial flutter Aflutter -- rates 90-110/120ss. Did endorse feeling palpitations in evening on occasion, not during the day, improved w/ schedule metoprolol and no issues w/ up/ambulating Continued eliquis 5mg BID, diltiazem held for hypotension, cards consulted and sent on metoprolol succinate 50mg daily and to have f/u with Dr Nicole at discharge Dyslipidemia Continued rosuvastatin 10 mg daily nightly Type II DM Home meds held on admit Had drop to 60s after admit, over correction of insulin/poor PO intake pharmacy consulted given significant insulin use at home, BSGs stable Resumed home meds at d/c, f/u PCP/endocrinology Gabapentin reduced as above for max 300mg/daily Mood/Depression Continues on duloxetine 30 mg BID-- per UTD, NOT dialyzable, child support agent's labeling recommends AVOID use -- will need continued discussions but she chooses to continue to want to utilize this (2) Chronic diastolic congestive heart failure: (3) Diabetes mellitus, type 2: (4) Diabetic nephropathy associated with type 2 diabetes mellitus: (5) Hyperlipidemia: (6) Hypertension: (7) Morbid obesity: (8) 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 During your stay at [facility], we have made an effort to correct the problem that brought you to the hospital while keeping you as comfortable as possible. Medications were used to bring your condition under control and your discharge instructions will include directions for any medications you should take after leaving the hospital. Please make sure you see your Primary Care Provider as part of your follow up plan. Activity: As commented below Non-emergency contact: Primary Care Provider and Supply Chain Planner Call non-emergency contact if: you have any medication questions and your s ymptoms worsen Follow-up/Referrals: Chayito Pagan MD [Primary Care Provider] - 08/12/22 1:30 pm Jerry Salvador MD [Physician] - Blanca Robertson MD [Physician] - Diet: Dialysis Renal and Heart Healthy Ambulatory Orders: Digoxin (Routine) Timeframe: [id number] Location: Determined by Patient Ordered By: Laquita Garcia Attending Provider Instructions: You have been hospitalized for hypotension. Ultrasound of the heart was unchanged from prior. Your heart rate was elevated and your Cardizem was held. I consulted Dr Diaz from cardiology and we switched this to metoprolol and your rates have been improved and your blood pressures stable. You will need to take metoprolol succinate 50 mg daily. And, we have added digoxin 62.5mcg (1/2 of a 125mcg tablet) every OTHER day. You should have a digoxin level checked in 1-2 weeks. I will put the order in [employer] system and have results sent to cardiology. Please monitor your blood pressures at home and do not take if you are feeling lightheaded/dizzy or if your blood pressure is below 80mmHg systolically. Per discussion with Dr Robertson, we started midodrine 10mg with your dialysis to prevent drops in your pressure and they have adjusted your dry weight for HD sessions. I did review your medications and you have had your gabapentin reduced to 300mg daily (100mg in the morning and 200mg in afternoon/evening) given your renal function. We did discuss the Cymbalta is also not dialyzed, however you wish to continue this medication for your neuropathy. You should follow up with cardiology and nephrology as well as your primary care provider after discharge to ensure stable after discharge. Please return to the ER with any worsening hypotension/lightheadedness, shortness of breath, or for any other symptoms concerning for you. It has been a pleasure being a part of the medical team providing for you while you have been in the hospital. Take care! Pending Studies at Discharge: Yes Studies:: Aldosterone Stand-Alone Forms: My [facility] [employer], Smoking Cessation Medications and DC Order Prescriptions: New midodrine 10 mg Tablet 10 mg PO MoWeFr@0900 Qty: 6 0RF Rx Instructions: take before dialysis on dialysis days gabapentin 100 mg Capsule 100 mg PO QAM Qty: 30 0RF gabapentin 100 mg Capsule 200 mg PO HS Qty: 60 0RF digoxin [Digitek] 125 mcg (0.125 mg) Tablet 0.0625 mg PO Q2D Qty: 30 0RF metoprolol succinate 50 mg tablet extended release 24 hr 50 mg PO DAILY Qty: 30 0RF Continued (DME) lancets [Accu-Chek Fastclix Lancet Drum] Misc See Rx Instructions .ROUTE .MEDSUPPLY Qty: 102 11RF Rx Instructions: test blood sugars 3 x daily rosuvastatin 10 mg tablet 10 mg PO DAILY Qty: 90 3RF Rx Instructions: hs (DME) BD SafetyGlide Syringe 3 mL 25 gauge x 1" syringe See Rx Instructions .Route Qty: 4 5RF Rx Instructions: As directed icosapent ethyl [Vascepa] 1 gram capsule 2 g PO BID Qty: 360 3RF Tresiba FlexTouch U-200 200 unit/mL (3 mL) insulin pen 100 unit SQ QAM 30 Days Qty: 18 5RF cyanocobalamin (vitamin B-12) 1,000 mcg/mL solution 1,000 mcg IM ONCE Qty: 1 4RF Rx Instructions: monthly (DME) insulin syringe-needle U-100 [BD Insulin Syringe Ultra-Fine] 0.5 mL 30 gauge x 1/2" syringe See Rx Instructions .Route Qty: 100 1RF Rx Instructions: use 3 x daily (DME) pen needle, diabetic [BD Ultra-Fine Kaylin Pen Needle] 32 gauge x 5/32" needle See Rx Instructions .ROUTE .COMPLEX Qty: 200 11RF Dose Instruction: USE FOUR TIMES DAILY WITH INSULIN Rx Instructions: USE FOUR TIMES DAILY WITH INSULIN insulin aspart U-100 [Novolog Flexpen U-100 Insulin] 100 unit/mL (3 mL) insulin pen 90 unit subcut DAILY 30 Days Qty: 30 5RF Hold Instructions: on back order Rx Instructions: inject with meals per sliding scale up to TDD 90 units (DME) Accu-Chek Guide test strips Strip See Rx Instructions .ROUTE .MEDSUPPLY Qty: 100 11RF Rx Instructions: test blood sugars 3 x daily apixaban 5 mg tablet 5 mg PO BID Qty: 180 3RF duloxetine 30 mg capsule,delayed release(DR/EC) 30 mg PO BID Qty: 60 5RF peg 3350-electrolytes [GaviLyte-G] 236-22.74-6.74 -5.86 gram recon soln 240 ml PO Q10M Qty: 4000 0RF Rx Instructions: until fecal effluent is clear cinacalcet 30 mg tablet 30 mg PO DAILY Velphoro 500 mg tablet,chewable 1,000 mg PO TID Renal-Krishna 0.8 mg tablet 1 tab PO DAILY sennosides [Senokot] 8.6 mg tablet 8.6 mg PO DAILY PRN (Reason: Constipation) cholecalciferol (vitamin D3) 50 mcg (2,000 unit) capsule 50 mcg PO DAILY (DME) blood-glucose meter [Accu-Chek Guide Glucose Meter] misc See Rx Instructions .ROUTE .MEDSUPPLY Qty: 1 0RF Rx Instructions: As directed Saccharomyces boulardii 250 mg capsule 250 mg PO DAILY calcium acetate(phosphat bind) 667 mg capsule 1,334 mg PO TIDM Discontinued diltiazem HCl 180 mg capsule,extended release 24 hr 180 mg PO DAILY Qty: 90 3RF Label Comments: qam gabapentin 100 mg capsule 200 mg PO QAM Qty: 60 5RF gabapentin 400 mg capsule 400 mg PO HS Qty: 30 5RF Discharge Orders: Discharge Order (Routine); Ordered 08/01/22 Ordered By: Laquita [place]/Other Patient Handouts: Managing Type 2 Diabetes Admission Data Admit Date/Time: 07/29/22 16:18 Attending Provider: Sonal Ovalles Admit Provider: Anil Bassett Primary Care Provider: Chayito Pagan V. Other Providers: Anil Bassett ; Blanca Robertson ; Alen Diaz Other Interventions: Discharge Summary Assessment (RN) Last Done: 08/01/22 13:14 Supervising Physician Co-Signing Physician Notes PA Supervision Note: I personally saw and examined the patient. I verified all resendez points and agree with MATA Bowman with the following exceptions and/or additions: S-Pt feeling well, no lightheadedness, CP< SOB. Tolerated HD today. Rates with modest control in Aflutter O- Vitals reviewed Gen: [AAOx3, NAD,obese] HEENT: [anicteric sclerae, EOMI] CV: [irreg irreg, no mgr nl S1S2] Pulm: [CTAB no wcr] A/P-62 yo female here with hypotension, rapid atrial flutter rates somewhat improved on metoprolol and starting digoxin BPs run low but asymptomatic, now on midodrine with HD days f/u with Cardiology-may need cardioversion if not converting if rates remain high at outpt follow up Coding Level of Care Code D/C DAY MANAGEMENT >30 MINS Diagnoses Hypotension I95.9 Chronic diastolic congestive heart failure I50.32 Diabetes mellitus, type 2 E11.9 Diabetic nephropathy associated with type 2 diabetes mellitus E11.21 Hyperlipidemia E78.5 Hypertension I10 Morbid obesity E66.01 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
[2022-08-01] MEDS ORDERED: DIGOXIN 0.125 MG TAB PO SCH ×2 (11:15→16:00)
--- NOTE | 2022-08-01 11:58 | Cardiology Progress Note ---
Date of Service August 01, 2022 Assessment & Plan (1) Paroxysmal atrial flutter: (2) Hypotension: (3) Anticoagulant long-term use: (4) Chronic diastolic congestive heart failure: Plan Patient remains asymptomatic and appears euvolemic but still has suboptimally controlled ventricular response to her permanent atrial fibrillation and intermittently has mild hypotension without evidence of hypoperfusion. Would discharge on metoprolol succinate 50 mg daily, not clear that she would tolerate a higher dose given her borderline hypotension. Recommend addition of digoxin 62.5 mcg every other day (half of a 125 mcg tablet) for additional rate control with less risk of further hypotension. Check digoxin level in 1 to 2 weeks. As noted, suspect that she has gained weight through increased caloric intake and is not actually volume overloaded, therefore avoiding attempts at aggressive volume unloading would be appropriate in order to avoid exacerbating her mild hypotension. Cardiology follow-up as outpatient with Dr. Salvador. Admission and Anticipated Discharge Date Admission Date: July 29, 2022 Subjective No complaints, she has an additional dialysis planned for later today. She denies any chest pain, dyspnea, or subjective palpitations. Despite receiving 3 doses of metoprolol 25 mg over the past 24 hours, her ventricular response atrial fibrillation still remains mildly elevated (110-120 bpm range). Physical Exam Physical Exam: No distress. BP low normal (102/67 mmHg). Pulse 110 bpm and irregular. Skin: no ecchymoses or generalized lesions. HEENT: unremarkable. Neck: Jugular venous pulse just above the clavicle at 90 degrees, no carotid bruits. Lungs: clear bilaterally, no crackles or wheezes. No accessory muscle use. Cardiac: Irregular/slightly tachycardic rhythm, no obvious murmur or gallop. Abdomen: benign. Extremities: no edema, pulses intact. Neurologic: normal affect and conversation, nonfocal. Results & Data ([facility]) Laboratory Results Normal electrolytes, BUN 55, creatinine 9.14. PG Care Time/CCT Total # of Minutes Spent Total Time Spent with Patient: Total time spent is greater than 50% in coordination of care (as documented) at patient's floor/unit and/or counseling patient: Coding Level of Care Code 00037 Subseq Hosp Care Lvl 3 Diagnoses Paroxysmal atrial flutter I48.92 Hypotension I95.9 Anticoagulant long-term use Z79.01 Chronic diastolic congestive heart failure I50.32
--- NOTE | 2022-08-01 14:44 | Pharmacy Report ---
Pharmacy Glycemic Short Note 2 - Date of Service August 01, 2022 - Glycemic Short BSG Results (Last 24 hours): 07/31/22 07/31/22 08/01/22 17:00 19:52 07:41 Glucose POC Glucose 92 123 H 103 H 08/01/22 08/01/22 08:50 11:45 Glucose 153 H POC Glucose 129 H OUTPATIENT ANTIDIABETIC REGIMEN: * Tresiba 100 units SQ QAM * Humalog SSI: (40 units with large meal, 20 units small meal, 10 units with snack) ASSESSMENT: 08/01/22: * Patient received 89 units of insulin yesterday, of which 60 were basal * Lantus increased yesterday due to concern for delayed Tresiba effects, will decrease down to 50 units today due to fasting blood glucose below goal * Prandial blood sugars mostly within goal range, continue current Novolog parameters 07/30/22: * Deandra is a 62 year old type 2 diabetic patient who presented to [facility] due to hypotension mid-day on 07/29. * Prior to admission, she was able to administer her morning dose of Tresiba; Subsequent BSG's yesterday were below goal. Today, her BSG's are trending up given the omission of her morning dose of Tresiba while inpatient. 50% reduced dose Lantus (to account for lower BSG's yesterday) will be started to accommodate for dietary changes while admitted while also offering basal coverage. * Patient was started on a weight based stress of 2 correction factor/carb ratio of 15 and 6 units last night, which has been well tolerated. PLAN FOR INPATIENT GLYCEMIC CONTROL: * Hold outpatient diabetes medications * Basal insulin * Lantus 50 units SQ QAM * Bolus insulin * NovoLog per scale ACHS or Q6hrs while NPO * Goal Range: Low 110 mg/dL - High 140 mg/dL * Correction Factor: 15 mg/dL/unit * Nutritional / Prandial insulin per carb ratio of 1 unit per 6 grams CHO consumed
== END 2022-08-01 17:58 | disposition home or self-care (01) | DRG 314 ==
LOC: ED 12:55 → SUATTDRO 16:18 → 2W 16:18

== ENCOUNTER 2022-12-04 17:46 | Inpatient (IN) ==
--- NOTE | 2022-12-04 17:51 | ED Triage Note ---
Date of Service December 04, 2022 History of Present Illness This patient was briefly evaluated while in triage. An abbreviated physical exam was performed. This patient is a 62-year-old Female who presents to the ED for evaluation of low O2 on room air (upper 70's, 80's). Referred by dialysis nurse. O2 low for "at least a couple weeks." Been averaging 85% for several months. No cough, pain, recent illness. Pt. having difficulty sleeping, brain fog, fatigue. Physical Exam VITALS: Vitals are noted on the nurse's note and reviewed by myself. GENERAL: This is a 62 year old female, in no acute distress, nondiaphoretic, well-developed well-nourished. SKIN: No obvious rashes, edema, erythema HEAD: Normocephalic atraumatic. EYES: Conjunctivae without injection, sclerae without icterus. NECK: No JVD. LUNGS: No retractions or accessory muscle use. MUSCULOSKELETAL: Pt. presents in a wheelchair NEURO: Patient was alert and oriented to person place and time. No focal neurological deficits. Initial orders for labs and / or imaging were placed and patient was placed in the waiting area until a bed is available. Please see further documentation for the full ED course. MDM / Impression Impression Impression: Diabetes mellitus, type 2, End stage renal disease, Hypoxemia
--- NOTE | 2022-12-04 18:13 | Emergency Department Note ---
History of Present Illness General Chief complaint: Shortness of Breath/Dyspnea Stated complaint: REF BY PCP, O2 LEVEL AT 70-80, SOB Time Seen by Provider: 12/04/22 17:56 Source: patient, family (Daughter who is at the bedside), RN notes reviewed and old records reviewed (I did review her hospitalization and recent echo) Mode of arrival: ambulatory Limitations: no limitations History of Present Illness This patient is a 62-year-old female who has a complex medical history including end-stage renal disease comes in after being hypoxemic. She has been running 70 to 80% O2 sat last 2 weeks she does have baseline shortness of breath but is increased she cannot lay flat at baseline. She has increased dyspnea on exertion. She does receive dialysis Thursday and has not missed any she had a yesterday. She said they want her to come here yesterday. She called her doctor today who referred her to the ER. She is on Eliquis as a blood thinner for A-fib. She said no chest pain no blood or melena stool no fever chills no swelling of mouth lips or tongue or cough. She has no significant weight gain or edema. No fall or trauma her energy has been decreased. No history of blood clots or pulmonary disease. Home Medications Medication Instructions Recorded Confirmed Type Saccharomyces boulardii 250 mg 250 mg PO DAILY 03/22/19 12/04/22 History capsule Accu-Chek Guide Glucose Meter #1 ea 07/07/19 08/21/22 Rx (blood-glucose meter) cinacalcet 30 mg tablet 30 mg PO DAILY 09/27/19 12/04/22 History sucroferric oxyhydroxide 500 mg 1,000 mg PO TID 12/20/19 12/04/22 History chewable tablet (Velphoro) Accu-Chek Fastclix Lancet Drum #102 ea 12/25/20 12/04/22 Rx (lancets) sennosides 8.6 mg tablet (Senokot) 8.6 mg PO DAILY PRN Constipation 12/25/20 12/04/22 History cholecalciferol (vitamin D3) 50 50 mcg PO DAILY 11/05/21 08/21/22 History mcg (2,000 unit) capsule rosuvastatin 10 mg tablet 10 mg PO DAILY #90 tabs 12/16/21 12/04/22 Rx syringe with needle, safety 3 mL #4 ea 12/18/21 08/21/22 Rx 25 gauge x 1" (BD SafetyGlide Syringe) insulin syringe-needle U-100 0.5 #100 ea 01/30/22 08/21/22 Rx mL 30 gauge x 1/2" (BD Insulin Syringe Ultra-Fine) pen needle, diabetic 32 gauge x #200 ea 03/10/22 08/21/22 Rx 5/32" (BD Ultra-Fine Kaylin Pen Needle) insulin aspart U-100 100 unit/mL 90 unit (0.9 mL) subcut DAILY 30 03/17/22 12/04/22 Rx (3 mL) subcutaneous pen (Novolog days #30 mL FlexPen U-100 Insulin aspart) Accu-Chek Guide test strips (blood #100 ea 03/19/22 08/21/22 Rx sugar diagnostic) apixaban 5 mg tablet 5 mg PO BID #180 tabs 03/21/22 12/04/22 Rx calcium acetate(phosphat bind) 667 1,334 mg PO TIDM 07/29/22 12/04/22 History mg capsule gabapentin 100 mg capsule 200 mg PO HS #60 caps 08/01/22 12/04/22 Rx midodrine 10 mg tablet 10 mg PO .COMPLEX #60 tabs 08/21/22 12/04/22 Rx digoxin 125 mcg (0.125 mg) tablet 0.0625 mg PO Q2D #30 tabs 09/30/22 12/04/22 Rx (Digitek) venlafaxine 37.5 mg tablet 37.5 mg PO BID #60 tabs 11/05/22 12/04/22 Rx insulin degludec 200 unit/mL (3 80 unit subcut QA 12/04/22 12/04/22 History mL) subcutaneous pen (Tresiba FlexTouch U-200 insulin) metoprolol succinate 100 mg 100 mg PO HS 12/04/22 12/04/22 History tablet,extended release 24 hr Allergies Allergy/AdvReac Type Severity Reaction Status Date / Time atorvastatin [From Lipitor] AdvReac Mild Muscle Pain Verified 08/21/22 13:26 venlafaxine [From Effexor] AdvReac Mild Not Verified 08/21/22 13:26 helpful for depression/neuropathy management Past Med/Surg History Medical History Abdominal bloating Anticoagulant long-term use Depression Diabetes mellitus, type 2 IDDM Dialysis patient M/W/F [facility] IN [place] Dietary counseling and surveillance End stage renal disease History of anemia History of blood transfusion S/P SURGERY History of kidney stones Hyperlipidemia Hypertension Hypoxia Morbid obesity Paroxysmal atrial fibrillation follows with Dr. Salvador>reason for eliquis Paroxysmal atrial flutter Peripheral neuropathy Retinopathy "MILD" Skin lesion Surgical History Difficult intubation 11/21/14= EXPLORATORY LAPAROTOMY= GRADE VIEW 1, GLIDESCOPE #3, ETT 7.5 AT [facility] H/O exploratory laparotomy History of appendectomy + BOWEL RESECTION 2/2 PERFORATION History of bowel resection PERFORATED APPENDIX SURGERY History of cardiac cath "many years ago" no stents History of cataract surgery bilateral eyes History of colonoscopy History of discectomy LUMBAR x2 History of hysterectomy ROD-BSO History of tooth extraction Hx of section X2 Hx of vascular surgery LEFT BASELIC VEIN AVF= 05/19/18= MAC SEDATION AT [facility] S/P arteriovenous (AV) fistula creation left arm S/P dilation and curettage D&E Family History Grandmother Family history of diabetes mellitus Family/Other Family history of diabetes mellitus Uncle Colorectal cancer Paternal Father Esophageal cancer Mother Methicillin resistant pneumonia due to Staphylococcus aureus Other No family history of adverse response to anesthesia Denies family history of Ovarian cancer Breast cancer Uterine cancer Social History Smoking Status: Never smoker Second Hand Exposure: No; Hx Alcohol Use: No Hx Substance Use: No Preferred Language: Japanese Communication Ability: Effective Visual Impairment: No Limitations Cadd Drafter Required: No Beliefs That Will Affect Care: None marital status: Current Living Situation: Alone Feels Safe at Home: Yes Safety Concerns: Feels Safe At This Time Seatbelt Use: always Assistive Devices: Denture - Upper, Glasses and Walker Review of Systems A total of 10 systems reviewed and were otherwise negative Physical Exam Vital Signs Vital Signs - 24 hr 12/04/22 17:49 12/04/22 18:42 04/20/23 18:43 Temperature 36.5 C Temperature Source Temporal Artery Scan Pulse Rate 67 62 Pulse Rate from SpO2 Sensor Pulse Rhythm Regular Respiratory Rate 24 22 Respiratory Effort / Characteristics Non-Labored Spontaneous Respiratory Depth Normal Blood Pressure 110/67 Blood Pressure Mean 81 Pulse Oximetry 77 L 95 87 L Oxygen Delivery Method Room Air Room Air Nasal Cannula Oxygen Flow Rate 3 Sepsis Recent Fever Within 48 Hours No Sepsis New/Unexplained Change in Mental Status No Sepsis Action Taken by Nursing No Action Required Oxygen Flow Rate - Titration 4 Pulse Oximetry Post Tiitration 95 12/04/22 18:05 12/04/22 18:30 12/04/22 19:00 Temperature Temperature Source Pulse Rate 66 64 Pulse Rate from SpO2 Sensor 63 Pulse Rhythm Respiratory Rate 22 Respiratory Effort / Characteristics Respiratory Depth Blood Pressure 110/55 L 103/63 Blood Pressure Mean 73 76 Pulse Oximetry 95 Oxygen Delivery Method Nasal Cannula Oxygen Flow Rate 4 Sepsis Recent Fever Within 48 Hours Sepsis New/Unexplained Change in Mental Status Sepsis Action Taken by Nursing Oxygen Flow Rate - Titration Pulse Oximetry Post Tiitration 12/04/22 19:00 12/04/22 19:30 12/04/22 19:30 Temperature Temperature Source Pulse Rate 63 63 Pulse Rate from SpO2 Sensor 62 72 Pulse Rhythm Respiratory Rate 22 23 Respiratory Effort / Characteristics Respiratory Depth Blood Pressure 97/58 L Blood Pressure Mean 71 Pulse Oximetry 96 94 Oxygen Delivery Method Oxygen Flow Rate Sepsis Recent Fever Within 48 Hours Sepsis New/Unexplained Change in Mental Status Sepsis Action Taken by Nursing Oxygen Flow Rate - Titration Pulse Oximetry Post Tiitration General: Well developed well nourished middle-age female who is speaking full sentences and appears in no acute distress, breathing comfortably on room air. Normal speech HEENT: Normal cephalic atraumatic. Pupils are equal round and reactive to light. Extraocular movements are intact. Oropharynx is pink with moist mucous membranes. No swelling of the mouth lips or tongue. Neck: Supple with a midline trachea. No meningeal signs or stiffness, no JVD or bruits. No Stridor. Chest: Clear to auscultation bilaterally. No wheezes or rhonchi. No increased work of breathing. Heart: Regular rate and rhythm without murmurs or gallops. Abdomen: Soft nontender, nondistended without rebound guarding or rigidity. Extremities: No cyanosis clubbing. Trace bilateral lower extremity no calf tenderness or assymetry Spine/Back. Non tender to palpation. No CVA tenderness Skin: Good turgor without rashes. Neurologic exam: Cranial nerves two through 12 are intact. Motor and sensation are intact and symmetrical throughout. Course Administered Medications Gabapentin (Gabapentin 100 Mg Cap) 200 mg PO HS [facility] Stop: 01/03/23 21:33 Last Admin: 12/04/22 22:07 Dose: 200 mg Documented By: [facility] Insulin Aspart (Insulin Aspart Per Unit Charge) 0 units SC ACHS [facility] Stop: 01/03/23 20:59 Last Admin: 12/04/22 22:05 Dose: Not Given Documented By: [facility] Insulin Aspart (Insulin Aspart Per Unit Charge) 0 units SC 0000,[id number] [facility] Stop: 01/04/23 00:00 Last Admin: 12/04/22 23:42 Dose: Not Given Documented By: [facility] Insulin Glargine (Lantus Per Unit Charge) 0 units SQ BID [facility]; Protocol Stop: 01/03/23 20:59 Last Admin: 12/04/22 22:06 Dose: Not Given Documented By: [facility] Metoprolol Succinate (Metoprolol Succ 50mg Ext Rel Tab) 100 mg PO [facility] Stop: 01/03/23 21:33 Last Admin: 12/04/22 22:09 Dose: Not Given Documented By: [facility] Miscellaneous (Sucroferric Oxyhydroxide [Velphoro] 500 Mg Tablet,Chewable - Order Awaiting Action) 1 each N/A QS [facility] Stop: 01/04/23 00:00 Last Admin: 12/04/22 23:43 Dose: Not Given Documented By: [facility] Rosuvastatin Calcium (Rosuvastatin Calcium 10 Mg Tab) 10 mg PO [facility] Stop: 01/03/23 21:44 Last Admin: 12/04/22 22:09 Dose: 10 mg Documented By: [facility] Venlafaxine HCl (Venlafaxine Hcl 37.5 Mg Tab) 37.5 mg PO BID [facility] Stop: 01/03/23 21:33 Last Admin: 12/04/22 22:08 Dose: 37.5 mg Documented By: [facility] Discontinued Medications Apixaban (Apixaban 5 Mg Tablet) 5 mg PO NOW STA Stop: 12/04/22 20:42 Last Admin: 12/04/22 21:04 Dose: 5 mg Documented By: [facility] Cefepime HCl 2,000 mg/ Syringe 20 mls @ 5 mls/min IV NOW STA; Protocol Stop: 12/04/22 20:25 Last Admin: 12/04/22 21:04 Dose: 5 mls/min Documented By: [facility] Medical Decision Making Differential Diagnosis Hypoxemia, CHF, pneumonia, pulmonary disease, anemia, cardiac disease, blood clot Medical Records Attestation: I reviewed the patient's medical records. Home Medications Current Medication List: was personally reviewed by me Laboratory Data Attestation: I reviewed the patient's lab results. 12/04/22 18:14 12/04/22 18:14 Lab Results 12/04/22 12/04/22 12/04/22 Range/Units 18:14 18:14 18:14 WBC 8.47 (4.8-10.8) K/ul RBC 5.20 (4.20-5.40) M/uL Hgb 16.0 (12.0-16.0) g/dl Hct 52.8 H (37.0-47.0) % MCV 101.5 H (80.0-100.0) fL MCH 30.8 (25.0-34.0) pg MCHC 30.3 L (32.0-36.0) g/dL RDW Std Deviation 68.3 H (36.4-46.3) fL RDW Coeff of Carolynn 18.8 H (11.5-14.5) % Plt Count 145 (130-400) K/uL MPV 12.5 H (9.4-12.4) fL Immature Gran % (Auto) 0.4 % Neut % (Auto) 66.9 % Lymph % (Auto) 22.2 % Sac % (Auto) 7.2 % Eos % (Auto) 2.6 % Baso % (Auto) 0.7 % Neut # (Auto) 5.67 (1.40-6.50) K/uL Lymph # (Auto) 1.88 (1.2-3.4) K/uL Sac # (Auto) 0.61 H (0.11-0.59) K/uL Eos # (Auto) 0.22 (0-0.50) K/uL Baso # (Auto) 0.06 (0-0.2) K/uL Immature Gran # (Auto) 0.03 (0.01-0.20) K/uL Absolute Nucleated RBC 0.03 (0-0.12) K/uL Nucleated RBC % (auto) 0.4 % PT 11.6 (9.0-12.0) Seconds INR 1.1 (0.9-1.1) APTT 32.8 H (21.0-31.0) Seconds PTT Ratio 1.2 VBG pH (7.36-7.41) VBG pCO2 (38-50) mmHg VBG pO2 mmHg VBG HCO3 mmol/L VBG O2 Saturation % VBG Base Excess mEq/L Sodium 138 (136-145) mmol/L Potassium 4.5 (3.5-5.1) mmol/L Chloride 100 (98-107) mmol/L Carbon Dioxide 28 (21-32) mmol/L Anion Gap 10 (3-11) BUN 34 H (6-23) mg/dl Creatinine 6.40 H* (0.6-1.2) mg/dl Est Cr Clr Drug Dosing 12.5 ml/min Est GFR ( Amer) 7.5 ml/min Est GFR (Non-Af Amer) 6.4 ml/min BUN/Creatinine Ratio 5.3 L (10-20) Glucose 126 H (70-99(Fasting)) mg/dl Calcium 8.4 L (8.6-10.3) mg/dl Magnesium 2.2 (1.7-2.4) mg/dl Total Bilirubin 0.3 (0.2-1.0) mg/dl AST 19 (13-39) U/L ALT 22 (7-52) U/L Alkaline Phosphatase 68 (34-104) U/L Troponin I High Sens 30.4 H (0-14) pg/ml B-Natriuretic Peptide (0-100) pg/ml Total Protein 6.4 (6.0-8.3) gm/dl Albumin 3.5 (3.4-5.0) gm/dl Globulin 2.9 (2.5-4.0) gm/dl Albumin/Globulin Ratio 1.2 (0.9-2) Procalcitonin (0-0.5) ng/ml SARS-CoV-2 (PCR) (Negative) Influenza Type A (PCR) (Neg) Influenza Type B (PCR) (Neg) RSV (RT-PCR) (Neg) 12/04/22 12/04/22 12/04/22 Range/Units 18:14 18:14 18:29 WBC (4.8-10.8) K/ul RBC (4.20-5.40) M/uL Hgb (12.0-16.0) g/dl Hct (37.0-47.0) % MCV (80.0-100.0) fL MCH (25.0-34.0) pg MCHC (32.0-36.0) g/dL RDW Std Deviation (36.4-46.3) fL RDW Coeff of Carolynn (11.5-14.5) % Plt Count (130-400) K/uL MPV (9.4-12.4) fL Immature Gran % (Auto) % Neut % (Auto) % Lymph % (Auto) % Sac % (Auto) % Eos % (Auto) % Baso % (Auto) % Neut # (Auto) (1.40-6.50) K/uL Lymph # (Auto) (1.2-3.4) K/uL Sac # (Auto) (0.11-0.59) K/uL Eos # (Auto) (0-0.50) K/uL Baso # (Auto) (0-0.2) K/uL Immature Gran # (Auto) (0.01-0.20) K/uL Absolute Nucleated RBC (0-0.12) K/uL Nucleated RBC % (auto) % PT (9.0-12.0) Seconds INR (0.9-1.1) APTT (21.0-31.0) Seconds PTT Ratio VBG pH 7.21 L (7.36-7.41) VBG pCO2 72 H (38-50) mmHg VBG pO2 64 mmHg VBG HCO3 29 mmol/L VBG O2 Saturation 90.9 % VBG Base Excess -0.9 mEq/L Sodium (136-145) mmol/L Potassium (3.5-5.1) mmol/L Chloride (98-107) mmol/L Carbon Dioxide (21-32) mmol/L Anion Gap (3-11) BUN (6-23) mg/dl Creatinine (0.6-1.2) mg/dl Est Cr Clr Drug Dosing ml/min Est GFR ( Amer) ml/min Est GFR (Non-Af Amer) ml/min BUN/Creatinine Ratio (10-20) Glucose (70-99(Fasting)) mg/dl Calcium (8.6-10.3) mg/dl Magnesium (1.7-2.4) mg/dl Total Bilirubin (0.2-1.0) mg/dl AST (13-39) U/L ALT (7-52) U/L Alkaline Phosphatase (34-104) U/L Troponin I High Sens (0-14) pg/ml B-Natriuretic Peptide 1962 H (0-100) pg/ml Total Protein (6.0-8.3) gm/dl Albumin (3.4-5.0) gm/dl Globulin (2.5-4.0) gm/dl Albumin/Globulin Ratio (0.9-2) Procalcitonin (0-0.5) ng/ml SARS-CoV-2 (PCR) NEGATIVE (Negative) Influenza Type A (PCR) Negative (Neg) Influenza Type B (PCR) Negative (Neg) RSV (RT-PCR) Negative (Neg) 12/04/22 12/04/22 Range/Units 19:41 19:41 WBC (4.8-10.8) K/ul RBC (4.20-5.40) M/uL Hgb (12.0-16.0) g/dl Hct (37.0-47.0) % MCV (80.0-100.0) fL MCH (25.0-34.0) pg MCHC (32.0-36.0) g/dL RDW Std Deviation (36.4-46.3) fL RDW Coeff of Carolynn (11.5-14.5) % Plt Count (130-400) K/uL MPV (9.4-12.4) fL Immature Gran % (Auto) % Neut % (Auto) % Lymph % (Auto) % Sac % (Auto) % Eos % (Auto) % Baso % (Auto) % Neut # (Auto) (1.40-6.50) K/uL Lymph # (Auto) (1.2-3.4) K/uL Sac # (Auto) (0.11-0.59) K/uL Eos # (Auto) (0-0.50) K/uL Baso # (Auto) (0-0.2) K/uL Immature Gran # (Auto) (0.01-0.20) K/uL Absolute Nucleated RBC (0-0.12) K/uL Nucleated RBC % (auto) % PT (9.0-12.0) Seconds INR (0.9-1.1) APTT (21.0-31.0) Seconds PTT Ratio VBG pH (7.36-7.41) VBG pCO2 (38-50) mmHg VBG pO2 mmHg VBG HCO3 mmol/L VBG O2 Saturation % VBG Base Excess mEq/L Sodium (136-145) mmol/L Potassium (3.5-5.1) mmol/L Chloride (98-107) mmol/L Carbon Dioxide (21-32) mmol/L Anion Gap (3-11) BUN (6-23) mg/dl Creatinine (0.6-1.2) mg/dl Est Cr Clr Drug Dosing ml/min Est GFR ( Amer) ml/min Est GFR (Non-Af Amer) ml/min BUN/Creatinine Ratio (10-20) Glucose (70-99(Fasting)) mg/dl Calcium (8.6-10.3) mg/dl Magnesium (1.7-2.4) mg/dl Total Bilirubin (0.2-1.0) mg/dl AST (13-39) U/L ALT (7-52) U/L Alkaline Phosphatase (34-104) U/L Troponin I High Sens 31.3 H (0-14) pg/ml B-Natriuretic Peptide (0-100) pg/ml Total Protein (6.0-8.3) gm/dl Albumin (3.4-5.0) gm/dl Globulin (2.5-4.0) gm/dl Albumin/Globulin Ratio (0.9-2) Procalcitonin 0.34 (0-0.5) ng/ml SARS-CoV-2 (PCR) (Negative) Influenza Type A (PCR) (Neg) Influenza Type B (PCR) (Neg) RSV (RT-PCR) (Neg) Imaging Data Attestation: I personally reviewed and interpreted this imaging study as follows: My Impression: Chest x-raycardiomegaly with interstitial markings that are increased. In comparison to the most recent chest x-ray from July it looks fairly similar Radiologist's Impression: Chest X-Ray 12/04/22 17:51 XR chest 1V portable HISTORY: 62 years-old Female Dyspnea acute shortness of breath COMPARISON: 07/29/2022 TECHNIQUE: AP view the chest FINDINGS: Cardiac silhouette is enlarged. Atherosclerosis of the aorta. Pulmonary vascular congestion. There are new somewhat linear airspace opacities in the lateral left midlung. No pneumothorax. Probable trace pleural effusions with mild bibasilar densities. Degenerative changes of the shoulders and spine. IMPRESSION: 1. Cardiomegaly with pulmonary vascular congestion. 2. Linear left midlung opacities may be secondary to atelectasis versus developing pneumonia. ACT 112: Negative or not required by law. The above report was generated using voice recognition software. It may contain grammatical, syntax or spelling errors. Electronically signed by: Harpal Selby M.D. 12/04/2022 6:34 PM ECG Data Attestation: I personally reviewed and interpreted this ECG as follows: Indication: + SOB/dyspnea Rate (beats per minute): 67 Rhythm: + atrial flutter (Suspected although difficult to say due to poor based) and + other (Poor baseline) ECG Intervals/blocks: + Incomplete right bundle branch block ECG Aristes: + Normal ECG ST segments: + Normal ST segments ECG Findings: + Other (Low voltage) Comparison ECG Date: from (07/31/22) Change: the following changes noted (Rate has decreased) MDM Narrative This patient comes in as described above she has been hypoxemic for a couple weeks but been getting worse she has had increasing shortness of breath and decreased energy in triage her O2 sat was 77%. Her daughter says she was 71 at home this morning she was placed on oxygen and came up into the high 80s/low 90s she looks well. She has no evidence to suggest upper airway compromise she has no swelling mouth lips or tongue no stridor. Her lungs are clear. She had extensive work-up done here which included chest x-ray EKG multiple blood testing and VBG she was reassessed frequently I did review her old charts and her most recent echo was as follows Per Cardiology Note 06/12/2022: 1. Dobutamine stress echo 11/30/2013: Nondiagnostic. Heart rate achieved only 62% MPHR. Hypertensive response to dobutamine. EF 55-60%. No significant valvular abnormalities. 2. Echo 02/02/2017: Normal LV size, wall motion, systolic function. EF 50-55%. Mild LVH. Trace to mild MR. 3. Echo 10/19/2018: Normal LV size, wall motion, systolic function. EF 60-65%. Moderate LVH. Mild left atrial dilation. No significant valvular abnormalities. 4. Nuclear stress 11/04/2018: Negative for ischemia. EF 58%. 5. Event monitor 01/31/2019 to 03/01/2019: Atrial flutter with RVR. No reported symptoms. EKG does not show any definite ischemic changes. Her chest x-ray does look fluid overloaded. I talked her at length about this she does not make urine. She says when they try to take extra fluid off with dialysis she tends get hypotensive. Her VBG showed respiratory acidosis. She has renal failure but no significant electrolyte or metabolic abnormalities. Her troponin is only mildly elevated and I did a second troponin there is no significant change. Given her hypoxemia I do think she needs to be admitted for further treatment and evaluation. I have discussed the case at length and consulted Dr. Ana Maria Gardner from the hospitalist group to see the patient in ER. Continuous cardiac monitoring: Orders placed in EMR for continuous cardiac monitoring. Upon my evaluation patient was noted to be in suspected a flutter/fib with a rate of 65 Impression & Plan Hypoxemia, Diabetes mellitus, type 2, End stage renal disease, Respiratory acidosis, Shortness of breath, Lab test negative for COVID-19 virus Discharge Plan Visit Data Chief Complaint: Shortness of Breath/Dyspnea Stated Complaint: REF BY PCP, O2 LEVEL AT 70-80, SOB ED Provider: Jalen Ly Discharge Problem: Hypoxemia, Diabetes mellitus, type 2, End stage renal disease, Respiratory acidosis, Shortness of breath, Lab test negative for COVID-19 virus Patient Disposition: Admitted As Inpatient Discharge Instructions Interventions: ED Discharge Assessment Last Done: 12/04/22 22:17
--- NOTE | 2022-12-04 18:35 | XRay Report ---
XR chest 1V portable HISTORY: 62 years-old Female Dyspnea acute shortness of breath COMPARISON: 07/29/2022 TECHNIQUE: AP view the chest FINDINGS: Cardiac silhouette is enlarged. Atherosclerosis of the aorta. Pulmonary vascular congestion. There ar e new somewhat linear airspace opacities in the lateral left midlung. No pneumothorax. Probable trace pleural effusions with mild bibasilar densities. Degenerative changes of the shoulders and spine. IMPRESSION: 1. Cardiomegaly with pulmonary vascular congestion. 2. Linear left midlung opacities may be secondary to atelectasis versus developing pneumonia. ACT 112: Negative or not required by law. The above report was generated using voice recognition software. It may contain grammatical, syntax o r spelling errors. Electronically signed by: Harpal Selby M.D. 12/04/2022 6:34 PM
[2022-12-04 18:42] LABS: Base Excess VBG -0.9 mEq/L; HCO3 VBG 29 mmol/L; Oxygen Saturation VBG 90.9 %; PCO2 VBG 72 mmHg (38-50); PO2 VBG 64 mmHg; pH VBG 7.21 (7.36-7.41)
[2022-12-04 18:56] LABS: Basophils # (auto) 0.06 K/uL (0-0.2); Basophils % (auto) 0.7 %; Eosinophils # (auto) 0.22 K/uL (0-0.50); Eosinophils % (auto) 2.6 %; Hematocrit (blood only) 52.8 % (37.0-47.0); Immature Granulocytes # (auto) 0.03 K/uL (0.01-0.20); Immature Granulocytes % (auto) 0.4 %; Lymphocytes # (auto) 1.88 K/uL (1.2-3.4); Lymphocytes % (auto) 22.2 %; Mean Corpuscular Hemoglobin 30.8 pg (25.0-34.0); Mean Corpuscular Hgb Conc 30.3 g/dL (32.0-36.0); Mean Corpuscular Volume 101.5 fL (80.0-100.0); Mean Platelet Volume 12.5 fL (9.4-12.4); Monocytes # (auto) 0.61 K/uL (0.11-0.59); Monocytes % (auto) 7.2 %; Neutrophils # (auto) 5.67 K/uL (1.40-6.50); Neutrophils % (auto) 66.9 %; Nucleated RBC # (auto) 0.03 K/uL (0-0.12); Nucleated RBC % (auto) 0.4 %; Platelet Count 145 K/uL (130-400); RDW Coefficient of Variation 18.8 % (11.5-14.5); RDW Standard Deviation 68.3 fL (36.4-46.3); White Blood Count 8.47 K/ul (4.8-10.8)
[2022-12-04 19:08] LABS: Albumin Globulin Ratio 1.2 (0.9-2); Albumin Level 3.5 gm/dl (3.4-5.0); BUN Creatinine Ratio 5.3 (10-20); Bilirubin,Total 0.3 mg/dl (0.2-1.0); Calcium 8.4 mg/dl (8.6-10.3); Creatinine Clr Calc Pharmacy 12.5 ml/min; Est GFR (African American) 7.5 ml/min; Est GFR (Non-African American) 6.4 ml/min; Globulin 2.9 gm/dl (2.5-4.0); Magnesium 2.2 mg/dl (1.7-2.4); Potassium 4.5 mmol/L (3.5-5.1); Total Protein 6.4 gm/dl (6.0-8.3)
[2022-12-04 19:10] LABS: Troponin I High Sensitivity 30.4 pg/ml (0-14)
[2022-12-04 19:16] LABS: INR 1.1 (0.9-1.1); Partial Thromboplastin Ratio 1.2; Partial Thromboplastin Time 32.8 Seconds (21.0-31.0); Prothrombin Time 11.6 Seconds (9.0-12.0)
[2022-12-04 19:19] LABS: Influenza A virus by PCR Negative (Neg); Influenza B virus by PCR Negative (Neg); RSV by PCR Negative (Neg); SARS CoV2 RNA(COVID-19) Ceph NEGATIVE (Negative)
--- NOTE | 2022-12-04 19:28 | History & Physical Report ---
Date of Service December 04, 2022 Assessment & Plan (1) Acute respiratory failure with hypoxia: Plan: -Admit to the PCU on tele -The patient is currently afebrile, hemodynamically stable, and stable on 4L NC -At this time the etiology of the patient's AHRF includes but is not limited to volume overload due to CHF and ESRD on HD, pneumonia, PE -The patient is noted to have cardiomegaly with pulmonary vascular congestion on CXR with a BNP of 1962 today. She has a history of diastolic CHF and has not been compliant with sodium restriction at home. -While she is on Eliquis, she has unilateral swelling and erythema of the LLE. This appears more consistent with cellulitis but we will obtain a venous doppler of the LLE for further evaluation of DVT -Will add on procal for further evaluation of possible pneumonia -Unfortunately she does not produce urine so we cannot diuresis her at this time -Currently stable and comfortable on 4L NC, will hold off on bipap at this time but could start if her work of breathing increases -Prn O2 to keep SpO2 at or above 95%, incentive spirometry and flutter therapy ordered -Would consider setting up outpatient sleep apnea testing -Home eliquis for DVT PPX until LE doppler is complete -AM CBC, CMP, Mag, phos, PT/INR, (2) Cellulitis: Plan: -It appears that the patient likely has cellulitis of the LLE due to her fall and left great toe laceration on [place] -No signs of abscess or fluctuation on palpation -Will obtain xray of the left toe to RO OM and LLE venous doppler to RO DVT -Will obtain a MRSA swab and start her on Cefepime for now to cover for Pseudomonas -Blood cultures obtained, follow and tailor abx as able (3) End stage renal disease: Plan: -Get's HD on MWF, haf full session yesterday -Renal function and electrolytes are stable -Nephrology consult placed to assist with HD while admitted -May need to do further adjustments of antihypertensives to allow for more fluid to be removed during sessions -Continue phos binder, Cinacalcet -Renal dialysis, DMII, low sodium and 1500 mL fluid restriction diet (4) Elevated troponin: Plan: -Initial high sen trop elevated at 30 with 2 hour repeat of 31 -The patient is without chest discomfort or acute ECG changes -Likely due to demand for hypoxia and volume overload -Continue to monitor on tele (5) Chronic diastolic congestive heart failure: Plan: -See Acute hypoxic respiratory failure (6) Diabetic nephropathy associated with type 2 diabetes mellitus: Plan: -Monitor BSG ACHS, goal is 110-160 -Typically takes 80 units Tresiba in the am for basal insulin -Will convert to 20 units lantus BID for now to avoid hypoglycemia -CF of 50 with CR of 15 -Pharmacy glycemic consult placed (7) Hypertension: Plan: -Stable -Patient has been having more issues with hypotension, especially on dialysis days -Will need to continue metoprolol for hx of afib/flutter -Continue midodrine daily with additional doses as needed on dialysis days (8) Hyperlipidemia: Plan: -Continue statin (9) Paroxysmal atrial fibrillation: Plan: -HR currently controlled -Continue metoprolol and Dig on even days (had dose this am) -Will order am Dig levels -Continue eliquis Plan The patient was seen with and discussed with Dr. Gardner at the time of the admission History of Present Illness Chief Complaint: SOB Primary Care Provider: Chayito Pagan MD Deandra is a 62-year-old female with a past medical history of chronic diastolic heart failure, type II DM with nephropathy dialysis dependent on MWF dialysis, S1 lumbosacral radiculopathy, hypertension, hyperlipidemia, paroxysmal A. fib on apixaban, depression who presented to the [facility] ED on 12/04/22 with SOB. In the ED the patient was found to be afebrile, hemodynamically stable, but hypoxic at 77% on RA. Labs were remarkable for an MCV of 101, MCHC of 30, RDW of 68, VBG pH of 7.21 with pCO2 of 72, and pO2 of 64, stable Cr of 6.40, initial high sen trop of 30, with BNP of 1962, and Covid 19/RSV/Influenza negative. At the time of the exam the patient was sitting in bed in no acute distress, currently saturating at 95% on 4L NC with her daughter sitting bedside. They state that the patient has been dealing with SOB for the past 1-2 months. She feels as though her SOB has progressed over this time. The patient states that she has been having full dialysis sessions, but they are not able to remove as much fluid as they would like due to hypotension. She also adds that she has had to be placed on 2L NC during some of her recent dialysis sessions. She denies recent fever, chills, chest pain, cough, abd pain, nausea, vomiting, dysuria, hematuria, melena, increased LE swelling. Of note, she states that she sustained a fall from standing on Easter, she does not believe that she hit her head or lost consciousness. She sustained a laceration to the left great toe at the time of her fall. Her daughter states that she has been having her mother check her SpO2 with a home pulse oximeter, recently her SpO2 has been running in the 70's- 80's. She does not have a previous history of TARAS but her daughter states that she does snore at times. When asked about her sodium intake, she states that she has a hard time limiting salt as she enjoys it on her food. She has not missed doses of her Eliquis recently and had a full session of dialysis yesterday. We discussed code status, she wishes to be a full code and for her daughter to make medical decisions for her if she cannot make them herself Please refer to Dr. Gardner's attestation for any changes to the treatment plan Allergies Allergy/AdvReac Type Severity Reaction Status Date / Time atorvastatin [From Lipitor] AdvReac Mild Muscle Pain Verified 08/21/22 13:26 venlafaxine [From Effexor] AdvReac Mild Not Verified 08/21/22 13:26 helpful for depression/neuropathy management Home Medications Medication Instructions Recorded Confirmed Type Saccharomyces boulardii 250 mg 250 mg PO DAILY 03/22/19 12/04/22 History capsule Accu-Chek Guide Glucose Meter #1 ea 07/07/19 08/21/22 Rx (blood-glucose meter) cinacalcet 30 mg tablet 30 mg PO DAILY 09/27/19 12/04/22 History sucroferric oxyhydroxide 500 mg 1,000 mg PO TID 12/20/19 12/04/22 History chewable tablet (Velphoro) Accu-Chek Fastclix Lancet Drum #102 ea 12/25/20 12/04/22 Rx (lancets) sennosides 8.6 mg tablet (Senokot) 8.6 mg PO DAILY PRN Constipation 12/25/20 12/04/22 History cholecalciferol (vitamin D3) 50 50 mcg PO DAILY 11/05/21 08/21/22 History mcg (2,000 unit) capsule rosuvastatin 10 mg tablet 10 mg PO DAILY #90 tabs 12/16/21 12/04/22 Rx syringe with needle, safety 3 mL #4 ea 12/18/21 08/21/22 Rx 25 gauge x 1" (BD SafetyGlide Syringe) insulin syringe-needle U-100 0.5 #100 ea 01/30/22 08/21/22 Rx mL 30 gauge x 1/2" (BD Insulin Syringe Ultra-Fine) pen needle, diabetic 32 gauge x #200 ea 03/10/22 08/21/22 Rx 5/32" (BD Ultra-Fine Kaylin Pen Needle) insulin aspart U-100 100 unit/mL 90 unit (0.9 mL) subcut DAILY 30 03/17/22 12/04/22 Rx (3 mL) subcutaneous pen (Novolog days #30 mL FlexPen U-100 Insulin aspart) Accu-Chek Guide test strips (blood #100 ea 03/19/22 08/21/22 Rx sugar diagnostic) apixaban 5 mg tablet 5 mg PO BID #180 tabs 03/21/22 12/04/22 Rx calcium acetate(phosphat bind) 667 1,334 mg PO TIDM 07/29/22 12/04/22 History mg capsule gabapentin 100 mg capsule 200 mg PO HS #60 caps 08/01/22 12/04/22 Rx midodrine 10 mg tablet 10 mg PO .COMPLEX #60 tabs 08/21/22 12/04/22 Rx digoxin 125 mcg (0.125 mg) tablet 0.0625 mg PO Q2D #30 tabs 09/30/22 12/04/22 Rx (Digitek) venlafaxine 37.5 mg tablet 37.5 mg PO BID #60 tabs 11/05/22 12/04/22 Rx insulin degludec 200 unit/mL (3 80 unit subcut QAM 12/04/22 12/04/22 History mL) subcutaneous pen (Tresiba FlexTouch U-200 insulin) metoprolol succinate 100 mg 100 mg PO HS 12/04/22 12/04/22 History tablet,extended release 24 hr Past Med/Surg History Medical History Abdominal bloating Anticoagulant long-term use Depression Diabetes mellitus, type 2 IDDM Dialysis patient M/W/F [facility] IN [place] Dietary counseling and surveillance End stage renal disease History of anemia History of blood transfusion S/P SURGERY History of kidney stones Hyperlipidemia Hypertension Hypoxia Morbid obesity Paroxysmal atrial fibrillation follows with Dr. Salvador>reason for eliquis Paroxysmal atrial flutter Peripheral neuropathy Retinopathy "MILD" Skin lesion Surgical History Difficult intubation 11/21/14= EXPLORATORY LAPAROTOMY= GRADE VIEW 1, GLIDESCOPE #3, ETT 7.5 AT [facility] H/O exploratory laparotomy History of appendectomy + BOWEL RESECTION 2/2 PERFORATION History of bowel resection PERFORATED APPENDIX SURGERY History of cardiac cath "many years ago" no stents History of cataract surgery bilateral eyes History of colonoscopy History of discectomy LUMBAR x2 History of hysterectomy ROD-BSO History of tooth extraction Hx of section X2 Hx of vascular surgery LEFT BASELIC VEIN AVF= 05/19/18= MAC SEDATION AT [facility] S/P arteriovenous (AV) fistula creation left arm S/P dilation and curettage D&E Family History Grandmother Family history of diabetes mellitus Family/Other Family history of diabetes mellitus Uncle Colorectal cancer Paternal Father Esophageal cancer Mother Methicillin resistant pneumonia due to Staphylococcus aureus Other No family history of adverse response to anesthesia Denies family history of Ovarian cancer Breast cancer Uterine cancer Social History Smoking Status: Never smoker Second Hand Exposure: No; Hx Alcohol Use: No Hx Substance Use: No Preferred Language: Singaporean Communication Ability: Effective Visual Impairment: No Limitations Raw Juice Weigher Required: No Beliefs That Will Affect Care: None marital status: Current Living Situation: Alone Feels Safe at Home: Yes Safety Concerns: Feels Safe At This Time Seatbelt Use: always Assistive Devices: Denture - Upper, Glasses and Walker Physical Exam Physical Exam: Physical Exam: General: In no acute distress, stated age, chronically ill-appearing HEENT: Normocephalic, atraumatic, NC currently in place, no scleral icterus, pupils around round, symmetrical, and reactive to light, moist mucus membranes, trachea midline, no thyromegaly Chest/Pulm: No respiratory distress, symmetrical chest expansion, crackles noted throughout Cardiac: RRR, no murmurs noted Abdomen: Negative for ascites and bruising, normoactive bowel sounds, soft, non-tender to palpation throughout Musculoskeletal: Symmetrical and without signs of acute trauma, upper and lower extremities with full ROM, no atrophy, spasticity, or flaccidity Extremities: Radial, dorsalis pedis, and posterior tibial pulses are intact and symmetrical, no edema noted in the BL LE's Skin: Patient with non-draining wound on the left great toe, erythema and swelling of the left foot and handy without signs of fluctuance Neuro: Alert and oriented to person, place, month, year, and president, no focal defects, CN II-XII tested and intact, finger to nose test negative, no tremors noted Psych: No acute distress, calm and cooperative during the exam Results & Data Results & Data Vital Signs (Past 12 Hours) Vital Signs Temp Pulse Resp BP Pulse Ox O2 Del Method O2 Flow Rate 12/04/22 18:30 64 22 110/55 L 95 Nasal Cannula 4 12/04/22 18:05 66 12/04/22 18:43 87 L Nasal Cannula 3 12/04/22 18:42 62 22 95 Room Air 12/04/22 17:49 36.5 C 67 24 110/67 77 L Room Air Laboratory Results Abnormal lab results 12/04/22 12/04/22 12/04/22 Range/Units 18:14 18:14 18:14 Hct 52.8 H (37.0-47.0) % MCV 101.5 H (80.0-100.0) fL MCHC 30.3 L (32.0-36.0) g/dL RDW Std Deviation 68.3 H (36.4-46.3) fL RDW Coeff of Carolynn 18.8 H (11.5-14.5) % MPV 12.5 H (9.4-12.4) fL Gray # (Auto) 0.61 H (0.11-0.59) K/uL APTT 32.8 H (21.0-31.0) Seconds VBG pH (7.36-7.41) VBG pCO2 (38-50) mmHg BUN 34 H (6-23) mg/dl Creatinine 6.40 H* (0.6-1.2) mg/dl BUN/Creatinine Ratio 5.3 L (10-20) Glucose 126 H (70-99(Fasting)) mg/dl Calcium 8.4 L (8.6-10.3) mg/dl Troponin I High Sens 30.4 H (0-14) pg/ml B-Natriuretic Peptide (0-100) pg/ml 12/04/22 12/04/22 12/04/22 Range/Units 18:14 18:14 19:41 Hct (37.0-47.0) % MCV (80.0-100.0) fL MCHC (32.0-36.0) g/dL RDW Std Deviation (36.4-46.3) fL RDW Coeff of Carolynn (11.5-14.5) % MPV (9.4-12.4) fL Gray # (Auto) (0.11-0.59) K/uL APTT (21.0-31.0) Seconds VBG pH 7.21 L (7.36-7.41) VBG pCO2 72 H (38-50) mmHg BUN (6-23) mg/dl Creatinine (0.6-1.2) mg/dl BUN/Creatinine Ratio (10-20) Glucose (70-99(Fasting)) mg/dl Calcium (8.6-10.3) mg/dl Troponin I High Sens 31.3 H (0-14) pg/ml B-Natriuretic Peptide 1962 H (0-100) pg/ml Diagnostic Findings Chest X-Ray 12/04/22 17:51 XR chest 1V portable HISTORY: 62 years-old Female Dyspnea acute shortness of breath COMPARISON: 07/29/2022 TECHNIQUE: AP view the chest FINDINGS: Cardiac silhouette is enlarged. Atherosclerosis of the aorta. Pulmonary vascular congestion. There are new somewhat linear airspace opacities in the lateral left midlung. No pneumothorax. Probable trace pleural effusions with mild bibasilar densities. Degenerative changes of the shoulders and spine. IMPRESSION: 1. Cardiomegaly with pulmonary vascular congestion. 2. Linear left midlung opacities may be secondary to atelectasis versus developing pneumonia. ACT 112: Negative or not required by law. The above report was generated using voice recognition software. It may contain grammatical, syntax or spelling errors. Electronically signed by: Harpal Selby M.D. 12/04/2022 6:34 PM ECG Additional Comments: Poor data quality, interpretation may be adversely affected Sinus rhythm with Premature atrial complexes Left axis deviation Low voltage QRS Incomplete right bundle branch block Inferior infarct (cited on or before 29-JUL-2022) Possible Anterolateral infarct (cited on or before 29-JUL-2022) Abnormal ECG When compared with ECG of 31-JUL-2022 06:08, Sinus rhythm has replaced Atrial flutter ... Code Status & VTE Plan Code Status Full code VTE Prophylaxis Plan VTE Prophylaxis will be ordered: Yes Supervising Physician Co-Signing Physician Notes Patient seen and examined, chart reviewed, case discussed with FREDA Castle and I agree with the documentation above. In brief, patient is a 62yo female with history of ESRD on HD q M/W/F, HFpEF, DM with neuropathy, HTN, HLP presenting with hypoxia. Patient reports several weeks of decreased saturation - 83-85% on room air for the last month. Today saturations were low in the 70's. Patient reports dyspnea as well as generalized weakness. No known lung disease. Compliant with HD - typically has 3kg removed. Does have some hypotension duri ng HD requiring Midodrine. 77% on room air in the ER. Placed on supplemental O2 with improvement On exam she is afebrile, HD stable, supplemental O2 in place +S1/S2, regular Lungs with bibasilar crackles, no rhonchi/wheezes Abd soft, NT/ND Ext warm, well perfused, wound on left great toe with some warmth and tenderness to foot Labs and images reviewed Assessment/Plan: Acute respiratory failure with hypoxia - suspect volume. Patient ESRD on HD. Anuric -HD, possibly increased fluid removal Treatment for possible cellulitis left foot with Cefepime Remainder as above PG Care Time/CCT Total # of Minutes Spent Total Time Spent with Patient: Total time spent is greater than 50% in coordination of care (as documented) at patient's floor/unit and/or counseling patient: Coding [place] [address] INT INP/OBS CARE 3/75MIN Patient Type Established Medical Decision Making High Complexity Diagnoses Acute respiratory failure with hypoxia J96.01 Cellulitis L03.90 End stage renal disease N18.6 Elevated troponin R77.8 Chronic diastolic congestive heart failure I50.32 Diabetic nephropathy associated with type 2 diabetes mellitus E11.21 Hypertension I10 Hyperlipidemia E78.5 Paroxysmal atrial fibrillation I48.0
[2022-12-04] MEDS ORDERED: GLUCOSE 40% GEL 15 GM TUBE PO PRN (20:13)
[2022-12-04] MEDS ORDERED: GLUCAGON FOR INJ 1 MG VIAL SQ PRN (20:13)
[2022-12-04] MEDS ORDERED: CARBOHYDRATES FOR HYPOGLYCEMIA PO PRN (20:13)
[2022-12-04] MEDS ORDERED: GLUCOSE 10 TAB/TUBE PO PRN (20:13)
[2022-12-04] MEDS ORDERED: DEXTROSE 50% 50 ML SYRINGE IV PRN (20:13)
[2022-12-04] MEDS ORDERED: PHARMACY GLYCEMIC MGMT CONSULT PRN (20:13)
[2022-12-04] MEDS ORDERED: CEFEPIME 2,000 MG in SYRINGE 0 ML IV STA (20:22)
[2022-12-04] MEDS ORDERED: APIXABAN 5 MG TABLET PO STA (20:41)
[2022-12-04] MEDS: INSULIN ASPART PER UNIT CHARGE SC SCH ×2 (22:05→23:42)
[2022-12-04] MEDS: LANTUS PER UNIT CHARGE SQ SCH (22:06)
[2022-12-04] MEDS: GABAPENTIN 100 MG CAP PO SCH (22:07)
[2022-12-04] MEDS: METOPROLOL SUCC 50MG EXT REL TAB PO SCH ×2 (22:07→22:09)
[2022-12-04] MEDS: VENLAFAXINE HCL 37.5 MG TAB PO SCH (22:08)
[2022-12-04] MEDS: ROSUVASTATIN CALCIUM 10 MG TAB PO SCH (22:09)
--- NOTE | 2022-12-04 22:47 | Ultrasound Report ---
Exam(s): US VENOUS LEFT LOWER EXTREMITY EXAM: US Duplex Left Lower Extremity Veins CLINICAL HISTORY: Reason for exam: swelling, erythema, hypoxia. TECHNIQUE: Real-time duplex ultrasound scan of the left lower extremity veins integrating B-mode two-dimensional vascular structure, Doppler spectral analysis, color flow Doppler imaging and compression. COMPARISON: No relevant prior studies available. FINDINGS: Deep veins: Unremarkable. No DVT in the visualized common femoral, femoral, proximal deep femoral or popliteal veins. The veins demonstrate normal color flow, are normally compressible, with normal phasic flow and/or augmentation response. Superficial veins: Unremarkable. No thrombus in the visualized great saphenous vein. Soft tissues: No acute findings. No popliteal cyst. IMPRESSION: Normal left lower extremity duplex venous ultrasound. Electronically signed by: King Sherman MD 12/04/22 22:46 PM
[2022-12-05] MEDS: INSULIN ASPART PER UNIT CHARGE SC SCH ×5 (04:16→20:15)
[2022-12-05 06:32] LABS: Basophils # (auto) 0.05 K/uL (0-0.2); Basophils % (auto) 0.6 %; Eosinophils # (auto) 0.17 K/uL (0-0.50); Hematocrit (blood only) 54.6 % (37.0-47.0); Hemoglobin 16.1 g/dl (12.0-16.0); Immature Granulocytes # (auto) 0.06 K/uL (0.01-0.20); Immature Granulocytes % (auto) 0.7 %; Lymphocytes # (auto) 1.23 K/uL (1.2-3.4); Lymphocytes % (auto) 14.5 %; Mean Corpuscular Hemoglobin 30.9 pg (25.0-34.0); Mean Corpuscular Hgb Conc 29.5 g/dL (32.0-36.0); Mean Corpuscular Volume 104.8 fL (80.0-100.0); Mean Platelet Volume 12.1 fL (9.4-12.4); Monocytes # (auto) 0.67 K/uL (0.11-0.59); Monocytes % (auto) 7.9 %; Neutrophils # (auto) 6.32 K/uL (1.40-6.50); Neutrophils % (auto) 74.3 %; Nucleated RBC # (auto) 0.03 K/uL (0-0.12); Nucleated RBC % (auto) 0.4 %; Platelet Count 148 K/uL (130-400); RDW Coefficient of Variation 18.7 % (11.5-14.5); RDW Standard Deviation 71.4 fL (36.4-46.3); Red Blood Count 5.21 M/uL (4.20-5.40)
[2022-12-05 07:01] LABS: Albumin Globulin Ratio 1.3 (0.9-2); Albumin Level 3.5 gm/dl (3.4-5.0); BUN Creatinine Ratio 4.9 (10-20); Bilirubin,Total 0.3 mg/dl (0.2-1.0); Calcium 8.5 mg/dl (8.6-10.3); Creatinine Clr Calc Pharmacy 11.9 ml/min; Est GFR (African American) 6.3 ml/min; Est GFR (Non-African American) 5.4 ml/min; Globulin 2.8 gm/dl (2.5-4.0); Magnesium 2.5 mg/dl (1.7-2.4); Phosphorus 10.7 mg/dl (2.5-4.9); Potassium 4.7 mmol/L (3.5-5.1); Total Protein 6.3 gm/dl (6.0-8.3)
[2022-12-05 07:11] LABS: INR 1.1 (0.9-1.1); Prothrombin Time 11.8 Seconds (9.0-12.0)
[2022-12-05 07:17] LABS: Vitamin B12 326 pg/ml (180-914)
--- NOTE | 2022-12-05 07:27 | XRay Report ---
XR foot LT 2V CLINICAL HISTORY: left great toe ulcer, rule out osteomyelitis COMPARISON STUDY: Left foot 10/09/2015. FINDINGS: The bones are osteopenic. Old, healed fractures at the fourth and fifth metatarsals no acut e fractures identified. Soft tissue swelling at the first MTP joint. No cortical destruction to sugge st an osteomyelitis. IMPRESSION: Soft tissue swelling at the first MTP joint. No evidence for osteomyelitis. ACT 112: Negative or not required by law. Electronically signed by: London Franco M.D. 12/05/2022 7:25 AM
[2022-12-05] MEDS: APIXABAN 5 MG TABLET PO SCH ×2 (08:35→20:14)
[2022-12-05] MEDS: CALCIUM ACETATE 667 MG CAP/TAB PO SCH ×3 (08:35→17:45)
[2022-12-05] MEDS: VENLAFAXINE HCL 37.5 MG TAB PO SCH ×2 (08:35→20:14)
[2022-12-05] MEDS: DIGOXIN 0.125 MG TAB PO SCH (08:36)
[2022-12-05] MEDS: MIDODRINE HCL 10 MG TAB PO SCH (08:37)
[2022-12-05] MEDS: LANTUS PER UNIT CHARGE SQ SCH ×2 (08:37→20:16)
--- NOTE | 2022-12-05 12:14 | Hospitalist Progress Note ---
Date of Service December 05, 2022 Assessment & Plan (1) Acute respiratory failure with hypoxia: Plan: -Most likely related to CHF exacerbation because of inability to remove enough fluid on dialysis due to blood pressure limitation. She is on midodrine 10 mg daily to keep her blood pressure up She is also on metoprolol which she needs for atrial fibrillation. Other than the metoprolol, she is not on any other antihypertensive agents that I can stop. Other possibilities like PE and pneumonia are less likely. Procalcitonin level was negative. She does not have any fever or elevated white count to suggest infection like pneumonia. Her lower extremity ultrasound was negative for DVT and she is on Eliquis which makes PE less likely. I heard bibasilar crackles and her chest x-ray is suggestive of vascular congestion. I think CHF is the most likely diagnosis. We will need to optimize her for dialysis so more fluid can be removed during sessions. Continue 3 L/min of oxygen per nasal cannula. Wean as tolerated. Continue dialysis. She is going for session today. (2) Cellulitis: Plan: -It appears that the patient likely has cellulitis of the LLE due to her fall and left great toe laceration on -No signs of abscess or fluctuation on palpation -X-ray of the left toe ruled out osteomyelitis. Lower extremity duplex ultrasound ruled out left lower extremity DVT. MRSA swab negative Continue cefepime to cover Pseudomonas Monitor blood cultures (3) End stage renal disease: Plan: -Gets HD on [facility], had a half full session on 12/03, limited by hypotension Nephrology on board for dialysis Patient is on metoprolol which she needs for A-fib rate control Other than that, she is not on any other antihypertensive agents that I can stop to allow for improved blood pressure during dialysis She is on midodrine which can be used more liberally on dialysis days. (4) Hypertension: Plan: -Stable -Patient has been having more issues with hypotension, especially on dialysis days -Will need to continue metoprolol for hx of afib/flutter -Continue midodrine daily with additional doses as needed on dialysis days (5) Elevated troponin: Plan: -Initial high sen trop elevated at 30 with 2 hour repeat of 31 -The patient is without chest discomfort or acute ECG changes -Likely due to demand for hypoxia and volume overload in the setting of ESRD -Continue to monitor on tele (6) Chronic diastolic congestive heart failure: Plan: -See Acute hypoxic respiratory failure (7) Diabetic nephropathy associated with type 2 diabetes mellitus: Plan: -Monitor BSG ACHS, goal is 110-160 -Typically takes 80 units Tresiba in the am for basal insulin -Will convert to 20 units lantus BID for now to avoid hypoglycemia -CF of 50 with CR of 15 -Pharmacy glycemic consult placed (8) Hyperlipidemia: Plan: -Continue statin (9) Paroxysmal atrial fibrillation: Plan: -HR currently controlled -Continue metoprolol and Dig on even days (had dose this am) -Continue eliquis Admission and Anticipated Discharge Date Admission Date: December 04, 2022 Subjective Patient says that she feels slightly better from a breathing standpoint ever since she was put on oxygen. Review of Systems Review of Systems: All systems reviewed & are unremarkable except as noted in Subjective Physical Exam Physical Exam: General: Awake, conversant, obese Heart: S1, S2/regular rate and rhythm, no murmur rubs or gallops Lungs: Bibasilar crackles. Normal effort Abdomen: Soft/nontender/nondistended. No hepatosplenomegaly Extremities: No clubbing/cyanosis. No edema Behavior: Appropriate, cooperative Results & Data Results & Data Vital Signs (Past 12 Hours) Vital Signs Temp Pulse Pulse Resp BP Pulse Ox O2 Del Method 12/05/22 11:53 36.8 C 60 19 94 Nasal Cannula 12/05/22 08:36 76 12/05/22 07:43 36.6 C 62 25 H 106/65 93 Nasal Cannula 12/05/22 03:20 36.7 C 63 19 106/56 L 93 Nasal Cannula O2 Flow Rate 12/05/22 11:53 3 12/05/22 08:36 12/05/22 07:43 4 12/05/22 03:20 5 Laboratory Results Abnormal lab results 12/04/22 12/04/22 12/04/22 Range/Units 18:14 18:14 18:14 Hgb (12.0-16.0) g/dl Hct 52.8 H (37.0-47.0) % MCV 101.5 H (80.0-100.0) fL MCHC 30.3 L (32.0-36.0) g/dL RDW Std Deviation 68.3 H (36.4-46.3) fL RDW Coeff of Carolynn 18.8 H (11.5-14.5) % MPV 12.5 H (9.4-12.4) fL [place] # (Auto) 0.61 H (0.11-0.59) K/uL APTT 32.8 H (21.0-31.0) Seconds VBG pH (7.36-7.41) VBG pCO2 (38-50) mmHg BUN 34 H (6-23) mg/dl Creatinine 6.40 H* (0.6-1.2) mg/dl BUN/Creatinine Ratio 5.3 L (10-20) Glucose 126 H (70-99(Fasting)) mg/dl Calcium 8.4 L (8.6-10.3) mg/dl Phosphorus (2.5-4.9) mg/dl Magnesium (1.7-2.4) mg/dl AST (13-39) U/L Troponin I High Sens 30.4 H (0-14) pg/ml B-Natriuretic Peptide (0-100) pg/ml Digoxin (0.8-2.0) ng/ml 12/04/22 12/04/22 12/04/22 Range/Units 18:14 18:14 19:41 Hgb (12.0-16.0) g/dl Hct (37.0-47.0) % MCV (80.0-100.0) fL MCHC (32.0-36.0) g/dL RDW Std Deviation (36.4-46.3) fL RDW Coeff of Carolynn (11.5-14.5) % MPV (9.4-12.4) fL [place] # (Auto) (0.11-0.59) K/uL APTT (21.0-31.0) Seconds VBG pH 7.21 L (7.36-7.41) VBG pCO2 72 H (38-50) mmHg BUN (6-23) mg/dl Creatinine (0.6-1.2) mg/dl BUN/Creatinine Ratio (10-20) Glucose (70-99(Fasting)) mg/dl Calcium (8.6-10.3) mg/dl Phosphorus (2.5-4.9) mg/dl Magnesium (1.7-2.4) mg/dl AST (13-39) U/L Troponin I High Sens 31.3 H (0-14) pg/ml B-Natriuretic Peptide 1962 H (0-100) pg/ml Digoxin (0.8-2.0) ng/ml 12/05/22 12/05/22 12/05/22 Range/Units 05:42 05:42 05:42 Hgb 16.1 H (12.0-16.0) g/dl Hct 54.6 H (37.0-47.0) % MCV 104.8 H (80.0-100.0) fL MCHC 29.5 L (32.0-36.0) g/dL RDW Std Deviation 71.4 H (36.4-46.3) fL RDW Coeff of Carolynn 18.7 H (11.5-14.5) % MPV (9.4-12.4) fL [place] # (Auto) 0.67 H (0.11-0.59) K/uL APTT (21.0-31.0) Seconds VBG pH (7.36-7.41) VBG pCO2 (38-50) mmHg BUN 36 H (6-23) mg/dl Creatinine 7.38 H* D (0.6-1.2) mg/dl BUN/Creatinine Ratio 4.9 L (10-20) Glucose (70-99(Fasting)) mg/dl Calcium 8.5 L (8.6-10.3) mg/dl Phosphorus 10.7 H (2.5-4.9) mg/dl Magnesium 2.5 H (1.7-2.4) mg/dl AST 12 L (13-39) U/L Troponin I High Sens (0-14) pg/ml B-Natriuretic Peptide (0-100) pg/ml Digoxin 0.4 L (0.8-2.0) ng/ml Diagnostic Findings Chest X-Ray 12/04/22 17:51 XR chest 1V portable HISTORY: 62 years-old Female Dyspnea acute shortness of breath COMPARISON: 07/29/2022 TECHNIQUE: AP view the chest FINDINGS: Cardiac silhouette is enlarged. Atherosclerosis of the aorta. Pulmonary vascular congestion. There are new somewhat linear airspace opacities in the lateral left midlung. No pneumothorax. Probable trace pleural effusions with mild bibasilar densities. Degenerative changes of the shoulders and spine. IMPRESSION: 1. Cardiomegaly with pulmonary vascular congestion. 2. Linear left midlung opacities may be secondary to atelectasis versus developing pneumonia. ACT 112: Negative or not required by law. The above report was generated using voice recognition software. It may contain grammatical, syntax or spelling errors. Electronically signed by: Harpal Selby M.D. 12/04/2022 6:34 PM Venous Doppler Study 12/04/22 20:01 Exam(s): US VENOUS LEFT LOWER EXTREMITY EXAM: US Duplex Left Lower Extremity Veins CLINICAL HISTORY: Reason for exam: swelling, erythema, hypoxia. TECHNIQUE: Real-time duplex ultrasound scan of the left lower extremity veins integrating B-mode two-dimensional vascular structure, Doppler spectral analysis, color flow Doppler imaging and compression. COMPARISON: No relevant prior studies available. FINDINGS: Deep veins: Unremarkable. No DVT in the visualized common femoral, femoral, proximal deep femoral or popliteal veins. The veins demonstrate normal color flow, are normally compressible, with normal phasic flow and/or augmentation response. Superficial veins: Unremarkable. No thrombus in the visualized great saphenous vein. Soft tissues: No acute findings. No popliteal cyst. IMPRESSION: Normal left lower extremity duplex venous ultrasound. Electronically signed by: King Sherman MD 12/04/22 22:46 PM Foot X-Ray 12/04/22 20:06 XR foot LT 2V CLINICAL HISTORY: left great toe ulcer, rule out osteomyelitis COMPARISON STUDY: Left foot 10/09/2015. FINDINGS: The bones are osteopenic. Old, healed fractures at the fourth and fifth metatarsals no acute fractures identified. Soft tissue swelling at the first MTP joint. No cortical destruction to suggest an osteomyelitis. IMPRESSION: Soft tissue swelling at the first MTP joint. No evidence for osteomyelitis. ACT 112: Negative or not required by law. Electronically signed by: London Franco M.D. 12/05/2022 7:25 AM PG Care Time/CCT Total # of Minutes Spent Total Time Spent with Patient: Total time spent is greater than 50% in coordination of care (as documented) at patient's floor/unit and/or counseling patient: Coding Level of Care Code 14973 SUB INP/OBS CARE 2/35MIN Diagnoses Acute respiratory failure with hypoxia J96.01 Cellulitis L03.90 End stage renal disease N18.6 Hypertension I10 Elevated troponin R77.8 Chronic diastolic congestive heart failure I50.32 Diabetic nephropathy associated with type 2 diabetes mellitus E11.21 Hyperlipidemia E78.5 Paroxysmal atrial fibrillation I48.0
--- NOTE | 2022-12-05 12:50 | Pharmacy Report ---
Pharmacy Glycemic Short Note 2 - Date of Service December 05, 2022 - Glycemic Short BSG Results (Last 24 hours): 12/04/22 12/04/22 12/04/22 18:14 22:04 23:36 Glucose 126 H POC Glucose 72 80 12/05/22 12/05/22 12/05/22 04:11 05:42 07:33 Glucose 84 POC Glucose 81 85 12/05/22 11:46 Glucose POC Glucose 85 OUTPATIENT ANTIDIABETIC REGIMEN: * Tresiba 80 units; aspart up to 90 units/day * A1c 6.9% 07/30/22- unreliable in the setting of HD ASSESSMENT: * Patient admitted with heart failure exacerbation/cellulitis. * Blood sugars have been in the low 80s since admission. * Lantus held this morning, will continue current scale up to 20 units tonight * Novolog parameters similar to weight based stress of 2 PLAN FOR INPATIENT GLYCEMIC CONTROL: * Hold outpatient oral diabetes medications * Basal insulin * Lantus 0/10/20 units SQ BID * Bolus insulin * NovoLog per scale ACHS or Q6hrs while NPO * Goal Range: Low 110 mg/dL - High 140 mg/dL * Correction Factor: 15 mg/dL/unit * Nutritional / Prandial insulin per carb ratio of 1 unit per 6 grams CHO consumed
--- NOTE | 2022-12-05 13:58 | Nephrology Consultation ---
Date of Consultation December 05, 2022 Assessment & Plan (1) End stage renal disease: (2) Anemia: (3) Hypertension: (4) Acute respiratory failure with hypoxia: Plan ESRD secondary to diabetic nephropathy, on hemodialysis since 2014 via left BC AV fistula, dialyzes at [facility].She was admitted yesterday with concern over difficulty reaching dry weight with persistent hypotension during dialysis and tachycardia. She had pretty similar presentation back in [facility] 2021. -- dialysis today, will plan for 4 L UF and then plan for extra dialysis treatment tomorrow as she seems clearly volume overloaded, will continue to have to challenge her dry weight although it may be difficult as her blood pressure runs low. Advised her to not to take metoprolol before dialysis. If blood pressure remains low and UF becomes difficult, will consider adding midodrine prior to dialysis. -- Left arm nephrology precautions, dose medications for EGFR less than 10 -- continue phosphate binder and renal vitamins will follow Thank you for allowing me to participate in your patient's care. It was a pleasure to see Deandra History of Present Illness Reason for Consultation: ESRD on HD. Attending Physician: Bruno Francisco MD History of Present Illness Deandra Magdaleno is a 62-year-old female with PMH of ESRD on HD, chronic diastolic CHF, type II DM, paroxysmal A. fib admitted with hypoxic respiratory failure and volume overload and hypotension difficult to manage volume status as an outpatient because of persistent hypotension. Nephrology consult requested for management of HD and volume status. EMR records were reviewed during visit. Deandra was admitted yesterday with SOB. In the ED the patient was hypoxic at 77% on RA. Initial high sen trop of 30, with BNP of 1962, tachycardic, BP 83/59. CXR shows cardiomegaly with pulmonary vascular congestion without pleural effu ramy or overt edema. She was placed on nasal cannula oxygen with improvement in oxygen saturation respiratory status. End-stage renal disease on hemodialysis since 2014 after she developed LEIF after ruptured appendix with the background of advanced CKD secondary to diabetic nephropathy. She does not make much urine. 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 Sampson. She reports she had full dialysis treatment on Thursday and she had almost 4 L UF. She felt better after she had dialysis however her blood pressure usually runs low. she has not been taking metoprolol before dialysis. She has been having issues with ultrafiltration with dialysis because of persistently low blood pressure. Has history of AFib and has been taking metoprolol mainly for rate control. She had similar presentation in July with volume overload and difficulty with ultrafiltration. At that time diltiazem was stopped and she was started on metoprolol however the issue to persist. Her weight is similar to where it was in July. Echo 10/19/2018: Normal LV size, wall motion, systolic function. EF 60-65%. Moderate LVH. Mild left atrial dilation. No significant valvular. Nuclear stress 11/04/2018: Negative for ischemia. EF 58%. This morning she is otherwise feeling well, denies any significant shortness of breath. Allergies Allergy/AdvReac Type Severity Reaction Status Date / Time atorvastatin [From Lipitor] AdvReac Mild Muscle Pain Verified 08/21/22 13:26 venlafaxine [From Effexor] AdvReac Mild Not Verified 08/21/22 13:26 helpful for depression/neuropathy management Home Medications Medication Instructions Recorded Confirmed Type Saccharomyces boulardii 250 mg 250 mg PO DAILY 03/22/19 12/04/22 History capsule Accu-Chek Guide Glucose Meter #1 ea 07/07/19 08/21/22 Rx (blood-glucose meter) cinacalcet 30 mg tablet 30 mg PO DAILY 09/27/19 12/04/22 History sucroferric oxyhydroxide 500 mg 1,000 mg PO TID 12/20/19 12/04/22 History chewable tablet (Velphoro) Accu-Chek Fastclix Lancet Drum #102 ea 12/25/20 12/04/22 Rx (lancets) sennosides 8.6 mg tablet (Senokot) 8.6 mg PO DAILY PRN Constipation 12/25/20 12/04/22 History cholecalciferol (vitamin D3) 50 50 mcg PO DAILY 11/05/21 08/21/22 History mcg (2,000 unit) capsule rosuvastatin 10 mg tablet 10 mg PO DAILY #90 tabs 12/16/21 12/04/22 Rx syringe with needle, safety 3 mL #4 ea 12/18/21 08/21/22 Rx 25 gauge x 1" (BD SafetyGlide Syringe) insulin syringe-needle U-100 0.5 #100 ea 01/30/22 08/21/22 Rx mL 30 gauge x 1/2" (BD Insulin Syringe Ultra-Fine) pen needle, diabetic 32 gauge x #200 ea 03/10/22 08/21/22 Rx 5/32" (BD Ultra-Fine Kaylin Pen Needle) insulin aspart U-100 100 unit/mL 90 unit (0.9 mL) subcut DAILY 30 03/17/22 12/04/22 Rx (3 mL) subcutaneous pen (Novolog days #30 mL FlexPen U-100 Insulin aspart) Accu-Chek Guide test strips (blood #100 ea 03/19/22 08/21/22 Rx sugar diagnostic) apixaban 5 mg tablet 5 mg PO BID #180 tabs 03/21/22 12/04/22 Rx calcium acetate(phosphat bind) 667 1,334 mg PO TIDM 07/29/22 12/04/22 History mg capsule gabapentin 100 mg capsule 200 mg PO HS #60 caps 08/01/22 12/04/22 Rx midodrine 10 mg tablet 10 mg PO .COMPLEX #60 tabs 08/21/22 12/04/22 Rx digoxin 125 mcg (0.125 mg) tablet 0.0625 mg PO Q2D #30 tabs 09/30/22 12/04/22 Rx (Digitek) venlafaxine 37.5 mg tablet 37.5 mg PO BID #60 tabs 11/05/22 12/04/22 Rx insulin degludec 200 unit/mL (3 80 unit subcut QAM 12/04/22 12/04/22 History mL) subcutaneous pen (Tresiba FlexTouch U-200 insulin) metoprolol succinate 100 mg 100 mg PO HS 12/04/22 12/04/22 History tablet,extended release 24 hr Patient History Medical History Abdominal bloating Anticoagulant long-term use Depression Diabetes mellitus, type 2 IDDM Dialysis patient M/W/F [facility] IN [place] Dietary counseling and surveillance End stage renal disease History of anemia History of blood transfusion S/P SURGERY History of kidney stones Hyperlipidemia Hypertension Hypoxia Morbid obesity Paroxysmal atrial fibrillation follows with Dr. Salvador>reason for eliquis Paroxysmal atrial flutter Peripheral neuropathy Retinopathy "MILD" Skin lesion Surgical History Difficult intubation 11/21/14= EXPLORATORY LAPAROTOMY= GRADE VIEW 1, GLIDESCOPE #3, ETT 7.5 AT [facility] H/O exploratory laparotomy History of appendectomy + BOWEL RESECTION 2/2 PERFORATION History of bowel resection PERFORATED APPENDIX SURGERY History of cardiac cath "many years ago" no stents History of cataract surgery bilateral eyes History of colonoscopy History of discectomy LUMBAR x2 History of hysterectomy ROD-BSO History of tooth extraction Hx of section X2 Hx of vascular surgery LEFT BASELIC VEIN AVF= 05/19/18= MAC SEDATION AT [facility] S/P arteriovenous (AV) fistula creation left arm S/P dilation and curettage D&E Family History Grandmother Family history of diabetes mellitus Family/Other Family history of diabetes mellitus Uncle Colorectal cancer Paternal Father Esophageal cancer Mother Methicillin resistant pneumonia due to Staphylococcus aureus Other No family history of adverse response to anesthesia Denies family history of Ovarian cancer Breast cancer Uterine cancer Social History Smoking Status: Never smoker Second Hand Exposure: No; Hx Alcohol Use: No Hx Substance Use: No Preferred Language: Yi Communication Ability: Effective Visual Impairment: No Limitations Rotary Cutter Feeder Required: No Beliefs That Will Affect Care: None marital status: Current Living Situation: Alone Feels Safe at Home: Yes Safety Concerns: Feels Safe At This Time Seatbelt Use: always Assistive Devices: Walker Review of Systems Review of Systems: Detailed review of system was done and pertinent positives and negatives are mentioned above. Physical Exam Constitutional: WD/WN, vitals as above + morbidly obese; no acute distress Eyes: + anicteric sclerae Neck: normal visual inspection Respiratory: no respiratory distress Auscultation: + crackles Cardiovascular: Rate/Rhythm: regular rate and regular rhythm Heart Sounds: normal S1 and normal S2 Extremities: + edema and + AV fistula (left BC AVF with thrill and bruit) Gastrointestinal (Abdomen): Percussion/Palpation: abdomen soft; abdomen nontender and no guarding obese Musculoskeletal: Extremities: extremities normal to inspection Skin: no rashes Neurologic: no focal motor deficits Psychiatric: Orientation: alert and oriented x 3 Affect: euthymic affect Results & Data Vital Signs (Past 12 Hours) Vital Signs Temp Pulse Pulse Resp BP Pulse Ox O2 Del Method 12/05/22 12:56 76 12/05/22 12:56 Nasal Cannula 12/05/22 11:53 36.8 C 60 19 94 Nasal Cannula 12/05/22 08:36 76 12/05/22 07:43 36.6 C 62 25 H 106/65 93 Nasal Cannula 12/05/22 03:20 36.7 C 63 19 106/56 L 93 Nasal Cannula O2 Flow Rate 12/05/22 12:56 12/05/22 12:56 2 12/05/22 11:53 3 12/05/22 08:36 12/05/22 07:43 4 12/05/22 03:20 5 PG Care Time/CCT Total # of Minutes Spent Total Time Spent with Patient: Total time spent is greater than 50% in coordination of care (as documented) at patient's floor/unit and/or counseling patient: Coding Level of Care Code 11186 INT INP/OBS CARE 375MIN Diagnoses End stage renal disease N18.6 Anemia D64.9 Hypertension I10 Acute respiratory failure with hypoxia J96.01
--- NOTE | 2022-12-05 18:03 | Electrocardiogram Report ---
Test Reason : Blood Pressure : / mmHG Vent. Rate : 067 BPM Atrial Rate : 067 BPM P-R Int : 196 ms QRS Dur : 094 ms QT Int : 446 ms P-R-T Axes : 061 -84 037 degrees QTc Int : 471 ms Poor data quality, interpretation may be adversely affected Sinus rhythm with Premature atrial complexes Left axis deviation Low voltage QRS Incomplete right bundle branch block Inferior infarct (cited on or before 29-JUL-2022) Possible Anterolateral infarct (cited on or before 29-JUL-2022) Abnormal ECG When compared with ECG of 31-JUL-2022 06:08, Sinus rhythm has replaced Atrial flutter Vent. rate has decreased BY 44 BPM Incomplete right bundle branch block has replaced Right bundle branch block Confirmed by Wu Johnson ([id number]) on 12/05/2022 6:03:15 PM Referred By: Chayito Nj Confirmed By:Riley Johnson
[2022-12-05] MEDS: METOPROLOL SUCC 50MG EXT REL TAB PO SCH (20:13)
[2022-12-05] MEDS: ROSUVASTATIN CALCIUM 10 MG TAB PO SCH (20:14)
[2022-12-05] MEDS: GABAPENTIN 100 MG CAP PO SCH (20:14)
[2022-12-06] MEDS: INSULIN ASPART PER UNIT CHARGE SC SCH ×7 (00:09→23:28)
[2022-12-06 06:29] LABS: Basophils # (auto) 0.04 K/uL (0-0.2); Basophils % (auto) 0.4 %; Eosinophils # (auto) 0.14 K/uL (0-0.50); Eosinophils % (auto) 1.5 %; Hematocrit (blood only) 54.4 % (37.0-47.0); Immature Granulocytes # (auto) 0.08 K/uL (0.01-0.20); Immature Granulocytes % (auto) 0.9 %; Lymphocytes # (auto) 1.17 K/uL (1.2-3.4); Lymphocytes % (auto) 12.5 %; Mean Corpuscular Hemoglobin 31.2 pg (25.0-34.0); Mean Corpuscular Hgb Conc 29.4 g/dL (32.0-36.0); Mean Platelet Volume 12.3 fL (9.4-12.4); Monocytes # (auto) 0.67 K/uL (0.11-0.59); Monocytes % (auto) 7.1 %; Neutrophils # (auto) 7.28 K/uL (1.40-6.50); Neutrophils % (auto) 77.6 %; Nucleated RBC # (auto) 0.04 K/uL (0-0.12); Nucleated RBC % (auto) 0.4 %; Platelet Count 116 K/uL (130-400); RDW Coefficient of Variation 18.2 % (11.5-14.5); RDW Standard Deviation 70.4 fL (36.4-46.3); Red Blood Count 5.13 M/uL (4.20-5.40); White Blood Count 9.38 K/ul (4.8-10.8)
[2022-12-06 06:54] LABS: Albumin Globulin Ratio 1.2 (0.9-2); Albumin Level 3.5 gm/dl (3.4-5.0); BUN Creatinine Ratio 3.5 (10-20); Bilirubin,Total 0.4 mg/dl (0.2-1.0); Calcium 8.7 mg/dl (8.6-10.3); Est GFR (African American) 7.6 ml/min; Est GFR (Non-African American) 6.6 ml/min; Globulin 2.9 gm/dl (2.5-4.0); Magnesium 2.3 mg/dl (1.7-2.4); Phosphorus 7.8 mg/dl (2.5-4.9); Potassium 4.6 mmol/L (3.5-5.1); Total Protein 6.4 gm/dl (6.0-8.3)
[2022-12-06 07:29] LABS: INR 1.1 (0.9-1.1); Prothrombin Time 11.8 Seconds (9.0-12.0)
[2022-12-06] MEDS: VENLAFAXINE HCL 37.5 MG TAB PO SCH ×2 (08:00→20:15)
[2022-12-06] MEDS: APIXABAN 5 MG TABLET PO SCH ×2 (08:00→20:15)
[2022-12-06] MEDS: MIDODRINE HCL 10 MG TAB PO SCH (08:00)
[2022-12-06] MEDS: CALCIUM ACETATE 667 MG CAP/TAB PO SCH ×3 (08:01→16:53)
[2022-12-06] MEDS: LANTUS PER UNIT CHARGE SQ SCH ×2 (08:01→20:15)
--- NOTE | 2022-12-06 12:48 | Nephrology Progress Note ---
Date of Service December 06, 2022 Assessment & Plan (1) End stage renal disease: Plan: ESRDattributed to DKD. On HD MWF at [facility] under the care of Dr. Sampson. Left BC AV fistula functioning well. Admitted with volume overload. Tolerated aggressive UF well with noted intradialytic hypotension. Deandra states that she regularly takes midodrine up to TID for chronic hypotension. She is educated on use of the medication prior to HD for BP support. Dietary sodium and fluid restriction reenforced. Low sodium diet. 1 L per day fluid restriction. Medications appropriately dosed for IHD. Clearance acceptable. Dietary phosphorus restriction. Phoslo QAC. (2) Acute respiratory failure with hypoxia: Plan: Tolerating fluid removal with HD. Next anticipated dialysis treatment will be Thursday. Symptomatically improving. (3) Hypotension: Plan: Intradialytic hypotension. Continue midodrine 10 mg pretreatment. t/c dose reduction of metoprolol as tolerated. Admission and Anticipated Discharge Date Admission Date: December 04, 2022 Subjective No acute events overnight. Completed HD yesterday for net UF 3 L without complications. Deandra was seen and evaluated during hemodialysis today. She is tolerating treatment well. Hypotensive throughout treatment but asymptomatic (expect for a mild headache toward the end of treatment). Overall, she feels well. Reports overall improvement in dyspnea. Feeling tired this AM. Deandra makes a very small amount of urine on rare occasions. Small amount collected via catheter this AM. Review of Systems Review of Systems: All systems reviewed & are unremarkable except as noted in HPI & below Physical Exam Constitutional: well developed; no acute distress Eyes: no scleral abnormality and no corneal abnormality ENMT: Mouth: no oral mucosal abnormality and oral mucous membranes not dry Neck: normal visual inspection and trachea midline Respiratory: normal respiratory effort Auscultation: lungs clear to auscultation bilaterally Cardiovascular: Rate/Rhythm: regular rate Heart Sounds: normal S1 and normal S2 Extremities: no edema Musculoskeletal: Extremities: no cyanosis and no clubbing Skin: normal turgor; no lesions Neurologic: Motor/Sensory: no tremor and no asterixis Psychiatric: Orientation: alert and oriented x 3 Results & Data Vital Signs (Past 12 Hours) Vital Signs Temp Pulse Pulse Pulse Resp BP BP 12/06/22 12:00 78 72/31 L 12/06/22 11:30 66 76/41 L 12/06/22 11:00 65 79/41 L 12/06/22 10:30 67 84/39 L 12/06/22 10:00 67 96/40 L 12/06/22 10:20 70 12/06/22 10:20 12/06/22 09:30 64 95/42 L 12/06/22 09:00 60 87/40 L 12/06/22 08:50 37.0 C 66 12/06/22 08:00 37.2 C 73 19 97/53 L 12/06/22 03:05 36.9 C 70 18 101/52 L Pulse Ox O2 Del Method O2 Flow Rate 12/06/22 12:00 12/06/22 11:30 12/06/22 11:00 12/06/22 10:30 12/06/22 10:00 12/06/22 10:20 12/06/22 10:20 Nasal Cannula 4 12/06/22 09:30 12/06/22 09:00 12/06/22 08:50 12/06/22 08:00 93 Nasal Cannula 4.0 12/06/22 03:05 93 Nasal Cannula Laboratory Results Laboratory Results - last 24 hr 12/05/22 12/05/22 12/06/22 18:15 20:04 00:04 WBC RBC Hgb Hct MCV MCH MCHC RDW Std Deviation RDW Coeff of Carolynn Plt Count MPV Immature Gran % (Auto) Neut % (Auto) Lymph % (Auto) [place] % (Auto) Eos % (Auto) Baso % (Auto) Neut # (Auto) Lymph # (Auto) [place] # (Auto) Eos # (Auto) Baso # (Auto) Immature Gran # (Auto) Absolute Nucleated RBC Nucleated RBC % (auto) PT INR Sodium Potassium Chloride Carbon Dioxide Anion Gap BUN Creatinine Est Cr Clr Drug Dosing Est GFR ( Amer) Est GFR (Non-Af Amer) BUN/Creatinine Ratio Glucose POC Glucose 83 112 H 147 H Calcium Phosphorus Magnesium Total Bilirubin AST ALT Alkaline Phosphatase Total Protein Albumin Globulin Albumin/Globulin Ratio Urine Color Urine Appearance Urine pH Ur Specific [place] Urine Protein Urine Glucose (UA) Urine Ketones Urine Blood Urine Nitrite Urine Bilirubin Urine Urobilinogen Ur Leukocyte Esterase Urine WBC (Auto) Urine RBC (Auto) U Hyaline Cast (Auto) U Epithel Cells (Auto) Urine Bacteria (Auto) Ur Renal Epithelial Cell Urine Crystals Calcium Oxalate Crystal Uric Acid Crystals Triple Phos Crystals Other Crystals Amorphous Sediment Granular Casts Waxy Casts RBC Casts WBC Casts Other Casts Urine Mucus Urine Other Urine Trichomonas Urine Yeast Urine Sperm Ur Oval Fat Bodies Digoxin 12/06/22 12/06/22 12/06/22 03:53 06:05 06:05 WBC 9.38 RBC 5.13 Hgb 16.0 Hct 54.4 H MCV 106.0 H MCH 31.2 MCHC 29.4 L RDW Std Deviation 70.4 H RDW Coeff of Carolynn 18.2 H Plt Count 116 L MPV 12.3 Immature Gran % (Auto) 0.9 Neut % (Auto) 77.6 Lymph % (Auto) 12.5 [place] % (Auto) 7.1 Eos % (Auto) 1.5 Baso % (Auto) 0.4 Neut # (Auto) 7.28 H Lymph # (Auto) 1.17 L [place] # (Auto) 0.67 H Eos # (Auto) 0.14 Baso # (Auto) 0.04 Immature Gran # (Auto) 0.08 Absolute Nucleated RBC 0.04 Nucleated RBC % (auto) 0.4 PT 11.8 INR 1.1 Sodium Potassium Chloride Carbon Dioxide Anion Gap BUN Creatinine Est Cr Clr Drug Dosing Est GFR ( Amer) Est GFR (Non-Af Amer) BUN/Creatinine Ratio Glucose POC Glucose 115 H Calcium Phosphorus Magnesium Total Bilirubin AST ALT Alkaline Phosphatase Total Protein Albumin Globulin Albumin/Globulin Ratio Urine Color Urine Appearance Urine pH Ur Specific [place] Urine Protein Urine Glucose (UA) Urine Ketones Urine Blood Urine Nitrite Urine Bilirubin Urine Urobilinogen Ur Leukocyte Esterase Urine WBC (Auto) Urine RBC (Auto) U Hyaline Cast (Auto) U Epithel Cells (Auto) Urine Bacteria (Auto) Ur Renal Epithelial Cell Urine Crystals Calcium Oxalate Crystal Uric Acid Crystals Triple Phos Crystals Other Crystals Amorphous Sediment Granular Casts Waxy Casts RBC Casts WBC Casts Other Casts Urine Mucus Urine Other Urine Trichomonas Urine Yeast Urine Sperm Ur Oval Fat Bodies Digoxin 12/06/22 12/06/22 12/06/22 06:05 06:05 06:35 WBC RBC Hgb Hct MCV MCH MCHC RDW Std Deviation RDW Coeff of Carolynn Plt Count MPV Immature Gran % (Auto) Neut % (Auto) Lymph % (Auto) [place] % (Auto) Eos % (Auto) Baso % (Auto) Neut # (Auto) Lymph # (Auto) [place] # (Auto) Eos # (Auto) Baso # (Auto) Immature Gran # (Auto) Absolute Nucleated RBC Nucleated RBC % (auto) PT INR Sodium 137 Potassium 4.6 Chloride 99 Carbon Dioxide 29 Anion Gap 9 BUN 22 Creatinine 6.28 H* D Est Cr Clr Drug Dosing 14.0 Est GFR ( Amer) 7.6 Est GFR (Non-Af Amer) 6.6 BUN/Creatinine Ratio 3.5 L Glucose 115 H POC Glucose Calcium 8.7 Phosphorus 7.8 H Magnesium 2.3 Total Bilirubin 0.4 AST 11 L ALT 14 Alkaline Phosphatase 67 Total Protein 6.4 Albumin 3.5 Globulin 2.9 Albumin/Globulin Ratio 1.2 Urine Color Cancelled Urine Appearance Cancelled Urine pH Cancelled Ur Specific [place] Cancelled Urine Protein Cancelled Urine Glucose (UA) Cancelled Urine Ketones Cancelled Urine Blood Cancelled Urine Nitrite Cancelled Urine Bilirubin Cancelled Urine Urobilinogen Cancelled Ur Leukocyte Esterase Cancelled Urine WBC (Auto) Cancelled Urine RBC (Auto) Cancelled U Hyaline Cast (Auto) Cancelled U Epithel Cells (Auto) Cancelled Urine Bacteria (Auto) Cancelled Ur Renal Epithelial Cell Cancelled Urine Crystals Cancelled Calcium Oxalate Crystal Cancelled Uric Acid Crystals Cancelled Triple Phos Crystals Cancelled Other Crystals Cancelled Amorphous Sediment Cancelled Granular Casts Cancelled Waxy Casts Cancelled RBC Casts Cancelled WBC Casts Cancelled Other Casts Cancelled Urine Mucus Cancelled Urine Other Cancelled Urine Trichomonas Cancelled Urine Yeast Cancelled Urine Sperm Cancelled Ur Oval Fat Bodies Cancelled Digoxin 0.4 L 12/06/22 07:11 WBC RBC Hgb Hct MCV MCH MCHC RDW Std Deviation RDW Coeff of Carolynn Plt Count MPV Immature Gran % (Auto) Neut % (Auto) Lymph % (Auto) [place] % (Auto) Eos % (Auto) Baso % (Auto) Neut # (Auto) Lymph # (Auto) [place] # (Auto) Eos # (Auto) Baso # (Auto) Immature Gran # (Auto) Absolute Nucleated RBC Nucleated RBC % (auto) PT INR Sodium Potassium Chloride Carbon Dioxide Anion Gap BUN Creatinine Est Cr Clr Drug Dosing Est GFR ( Amer) Est GFR (Non-Af Amer) BUN/Creatinine Ratio Glucose POC Glucose 117 H Calcium Phosphorus Magnesium Total Bilirubin AST ALT Alkaline Phosphatase Total Protein Albumin Globulin Albumin/Globulin Ratio Urine Color Urine Appearance Urine pH Ur Specific [place] Urine Protein Urine Glucose (UA) Urine Ketones Urine Blood Urine Nitrite Urine Bilirubin Urine Urobilinogen Ur Leukocyte Esterase Urine WBC (Auto) Urine RBC (Auto) U Hyaline Cast (Auto) U Epithel Cells (Auto) Urine Bacteria (Auto) Ur Renal Epithelial Cell Urine Crystals Calcium Oxalate Crystal Uric Acid Crystals Triple Phos Crystals Other Crystals Amorphous Sediment Granular Casts Waxy Casts RBC Casts WBC Casts Other Casts Urine Mucus Urine Other Urine Trichomonas Urine Yeast Urine Sperm Ur Oval Fat Bodies Digoxin PG Care Time/CCT Total # of Minutes Spent Total Time Spent with Patient: Total time spent is greater than 50% in coordination of care (as documented) at patient's floor/unit and/or counseling patient: Coding Level of Care Code 65823 SUB INP/OBS CARE 3/50MIN Diagnoses End stage renal disease N18.6 Acute respiratory failure with hypoxia J96.01 Hypotension I95.9
--- NOTE | 2022-12-06 13:44 | Hospitalist Progress Note ---
Date of Service December 06, 2022 Assessment & Plan (1) Acute respiratory failure with hypoxia: Plan: -Most likely related to CHF exacerbation because of inability to remove enough fluid on dialysis due to blood pressure limitation. She is on midodrine 10 mg daily to keep her blood pressure up Per consultant internship, she has taken midodrine 10 mg up to 3 times a day. She can take an extra dose of Midrin on her dialysis days. She is also on metoprolol which she needs for atrial fibrillation. Recently, the dose of metoprolol has been increased for rate control. Keeping her on the same dose of metoprolol Other than the metoprolol, she is not on any other antihypertensive agents that I can stop. Other possibilities like PE and pneumonia are less likely. Procalcitonin level was negative. She does not have any fever or elevated white count to suggest infection like pneumonia. Her lower extremity ultrasound was negative for DVT and she is on Eliquis which makes PE less likely. I heard bibasilar crackles and her chest x-ray is suggestive of vascular congestion. I think CHF is the most likely diagnosis. We will need to optimize her for dialysis so more fluid can be removed during outpatient dialysis sessions. Continue oxygen per nasal cannula. Wean as tolerated. Continue dialysis. She had 2 [id number] sessions 12/05 and 12/06. Next session planned for 12/08. (2) Cellulitis: Plan: -It appears that the patient likely has cellulitis of the LLE due to her fall and left great toe laceration on [place] -No signs of abscess or fluctuation on palpation -X-ray of the left toe ruled out osteomyelitis. Lower extremity duplex ultrasound ruled out left lower extremity DVT. MRSA swab negative Continue cefepime to cover Pseudomonas Blood cultures negative so far (3) End stage renal disease: Plan: -Gets HD on MWF, had a half full session on 12/03, limited by hypotension Nephrology on board for dialysis Patient is on metoprolol which she needs for A-fib rate control Other than that, she is not on any other antihypertensive agents that I can stop to allow for improved blood pressure during dialysis She is on midodrine which can be used more liberally on dialysis days. (4) Hypertension: Plan: -Stable -Patient has been having more issues with hypotension, especially on dialysis days -Will need to continue metoprolol for hx of afib/flutter -Continue midodrine daily with additional doses as needed on dialysis days (5) Elevated troponin: Plan: -Initial high sen trop elevated at 30 with 2 hour repeat of 31 -The patient is without chest discomfort or acute ECG changes -Likely due to demand for hypoxia and volume overload in the setting of ESRD -Continue to monitor on tele (6) Chronic diastolic congestive heart failure: Plan: -See Acute hypoxic respiratory failure (7) Diabetic nephropathy associated with type 2 diabetes mellitus: Plan: -Monitor BSG ACHS, goal is 110-160 -Typically takes 80 units Tresiba in the am for basal insulin -Will convert to 20 units lantus BID for now to avoid hypoglycemia -CF of 50 with CR of 15 -Pharmacy glycemic consult placed (8) Hyperlipidemia: Plan: -Continue statin (9) Paroxysmal atrial fibrillation: Plan: -HR currently controlled -Continue metoprolol and Dig on even days -Continue eliquis Admission and Anticipated Discharge Date Admission Date: December 04, 2022 Subjective No chest pain or shortness of breath. She had 3 L of fluid removed with dialysis yesterday and she is currently on dialysis again. Physical Exam Physical Exam: General: Awake, conversant, obese Heart: S1, S2/regular rate and rhythm, no murmur rubs or gallops Lungs: Less bibasilar crackles. Normal effort Abdomen: Soft/nontender/nondistended. No hepatosplenomegaly Extremities: No clubbing/cyanosis. No edema Behavior: Appropriate, cooperative Results & Data Results & Data Vital Signs (Past 12 Hours) Vital Signs Temp Pulse Pulse Pulse Resp BP BP 12/06/22 13:00 37.0 C 65 91/45 L 12/06/22 12:30 80 74/38 L 12/06/22 13:23 37.0 C 74 22 95/47 L 12/06/22 12:00 78 72/31 L 12/06/22 11:30 66 76/41 L 12/06/22 11:00 65 79/41 L 12/06/22 10:30 67 84/39 L 12/06/22 10:00 67 96/40 L 12/06/22 10:20 70 12/06/22 10:20 12/06/22 09:30 64 95/42 L 12/06/22 09:00 60 87/40 L 12/06/22 08:50 37.0 C 66 12/06/22 08:00 37.2 C 73 19 97/53 L 12/06/22 03:05 36.9 C 70 18 101/52 L Pulse Ox O2 Del Method O2 Flow Rate 12/06/22 13:00 12/06/22 12:30 12/06/22 13:23 95 Nasal Cannula 4 12/06/22 12:00 12/06/22 11:30 12/06/22 11:00 12/06/22 10:30 12/06/22 10:00 12/06/22 10:20 12/06/22 10:20 Nasal Cannula 4 12/06/22 09:30 12/06/22 09:00 12/06/22 08:50 12/06/22 08:00 93 Nasal Cannula 4.0 12/06/22 03:05 93 Nasal Cannula PG Care Time/CCT Total # of Minutes Spent Total Time Spent with Patient: Total time spent is greater than 50% in coordination of care (as documented) at patient's floor/unit and/or counseling patient: Coding Level of Care Code 74192 SUB INP/OBS CARE 2/35MIN Diagnoses Acute respiratory failure with hypoxia J96.01 Cellulitis L03.90 End stage renal disease N18.6 Hypertension I10 Elevated troponin R77.8 Chronic diastolic congestive heart failure I50.32 Diabetic nephropathy associated with type 2 diabetes mellitus E11.21 Hyperlipidemia E78.5 Paroxysmal atrial fibrillation I48.0
[2022-12-06] MEDS: METOPROLOL SUCC 50MG EXT REL TAB PO SCH (19:26)
[2022-12-06] MEDS: GABAPENTIN 100 MG CAP PO SCH (20:14)
[2022-12-06] MEDS: ROSUVASTATIN CALCIUM 10 MG TAB PO SCH (20:15)
[2022-12-07] MEDS: INSULIN ASPART PER UNIT CHARGE SC SCH ×5 (04:25→20:23)
[2022-12-07 06:30] LABS: Basophils # (auto) 0.04 K/uL (0-0.2); Basophils % (auto) 0.4 %; Eosinophils # (auto) 0.16 K/uL (0-0.50); Eosinophils % (auto) 1.7 %; Hematocrit (blood only) 57.1 % (37.0-47.0); Hemoglobin 17.1 g/dl (12.0-16.0); Immature Granulocytes # (auto) 0.08 K/uL (0.01-0.20); Immature Granulocytes % (auto) 0.9 %; Lymphocytes # (auto) 1.02 K/uL (1.2-3.4); Lymphocytes % (auto) 10.9 %; Mean Corpuscular Hemoglobin 31.4 pg (25.0-34.0); Mean Corpuscular Hgb Conc 29.9 g/dL (32.0-36.0); Mean Platelet Volume 12.6 fL (9.4-12.4); Monocytes # (auto) 0.72 K/uL (0.11-0.59); Monocytes % (auto) 7.7 %; Neutrophils # (auto) 7.36 K/uL (1.40-6.50); Neutrophils % (auto) 78.4 %; Nucleated RBC # (auto) 0.05 K/uL (0-0.12); Nucleated RBC % (auto) 0.5 %; Platelet Count 104 K/uL (130-400); Red Blood Count 5.44 M/uL (4.20-5.40); White Blood Count 9.38 K/ul (4.8-10.8)
[2022-12-07 06:51] LABS: Albumin Globulin Ratio 1.2 (0.9-2); BUN Creatinine Ratio 4.9 (10-20); Bilirubin,Total 0.4 mg/dl (0.2-1.0); Calcium 9.7 mg/dl (8.6-10.3); Creatinine Clr Calc Pharmacy 14.6 ml/min; Est GFR (African American) 8.2 ml/min; Est GFR (Non-African American) 7.1 ml/min; Globulin 3.4 gm/dl (2.5-4.0); Magnesium 2.5 mg/dl (1.7-2.4); Phosphorus 7.7 mg/dl (2.5-4.9); Potassium 4.5 mmol/L (3.5-5.1); Total Protein 7.4 gm/dl (6.0-8.3)
[2022-12-07 07:01] LABS: INR 1.1 (0.9-1.1); Prothrombin Time 11.5 Seconds (9.0-12.0)
[2022-12-07] MEDS: APIXABAN 5 MG TABLET PO SCH ×2 (08:32→20:36)
[2022-12-07] MEDS: DIGOXIN 0.125 MG TAB PO SCH (08:32)
[2022-12-07] MEDS: LANTUS PER UNIT CHARGE SQ SCH ×2 (08:32→20:23)
[2022-12-07] MEDS: VENLAFAXINE HCL 37.5 MG TAB PO SCH ×2 (08:32→20:39)
[2022-12-07] MEDS: CALCIUM ACETATE 667 MG CAP/TAB PO SCH ×3 (08:33→16:55)
[2022-12-07] MEDS: MIDODRINE HCL 10 MG TAB PO SCH (08:33)
--- NOTE | 2022-12-07 12:28 | Hospitalist Progress Note ---
Date of Service December 07, 2022 Assessment & Plan (1) Acute respiratory failure with hypoxia: Plan: -Most likely related to CHF exacerbation because of inability to remove enough fluid on dialysis due to blood pressure limitation. She is on midodrine 10 mg daily to keep her blood pressure up Per senior account executive, she has taken midodrine 10 mg up to 3 times a day. She can take an extra dose of Midrin on her dialysis days. She is also on metoprolol which she needs for atrial fibrillation. Recently, the dose of metoprolol has been increased for rate control. Keeping her on the same dose of metoprolol Other than the metoprolol, she is not on any other antihypertensive agents that I can stop. Other possibilities like PE and pneumonia are less likely. Procalcitonin level was negative. She does not have any fever or elevated white count to suggest infection like pneumonia. Her lower extremity ultrasound was negative for DVT and she is on Eliquis which makes PE less likely. I heard bibasilar crackles and her chest x-ray is suggestive of vascular congestion. I think CHF is the most likely diagnosis. We will need to optimize her for dialysis so more fluid can be removed during outpatient dialysis sessions. Continue oxygen per nasal cannula. Wean as tolerated. Continue dialysis. She had 2 [id number] sessions 12/05 and 12/06. Next session planned for 12/08. In the last 2 sessions of dialysis, she has been hypotensive during dialysis. The degree of hypotension may not be acceptable at outpatient dialysis in future. This will lead to incomplete dialysis and volume overload again. I will give her an extra dose of midodrine tomorrow prior to dialysis so her blood pressure during dialysis days within a more acceptable range. Ordered 10 mg midodrine tablet once for tomorrow on top of the 10 mg that she takes every day. (2) Cellulitis: Plan: -It appears that the patient likely has cellulitis of the LLE due to her fall and left great toe laceration on -No signs of abscess or fluctuation on palpation -X-ray of the left toe ruled out osteomyelitis. Lower extremity duplex ultrasound ruled out left lower extremity DVT. MRSA swab negative Continue cefepime to cover Pseudomonas Blood cultures negative so far (3) End stage renal disease: Plan: -Gets HD on [facility], had a half full session on 12/03, limited by hypotension Nephrology on board for dialysis Patient is on metoprolol which she needs for A-fib rate control Other than that, she is not on any other antihypertensive agents that I can stop to allow for improved blood pressure during dialysis She is on midodrine which can be used more liberally on dialysis days. Ordered an extra 10 mg midodrine for tomorrow on top of the 10 mg that she takes daily (4) Hypertension: Plan: -Stable -Patient has been having more issues with hypotension, especially on dialysis days -Will need to continue metoprolol for hx of afib/flutter -Continue midodrine daily with additional doses as needed on dialysis days (5) Elevated troponin: Plan: -Initial high sen trop elevated at 30 with 2 hour repeat of 31 -The patient is without chest discomfort or acute ECG changes -Likely due to demand for hypoxia and volume overload in the setting of ESRD -Continue to monitor on tele (6) Chronic diastolic congestive heart failure: Plan: -See Acute hypoxic respiratory failure (7) Diabetic nephropathy associated with type 2 diabetes mellitus: Plan: -Monitor BSG ACHS, goal is 110-160 -Typically takes 80 units Tresiba in the am for basal insulin -Will convert to 20 units lantus BID for now to avoid hypoglycemia -CF of 50 with CR of 15 -Pharmacy glycemic consult placed (8) Hyperlipidemia: Plan: -Continue statin (9) Paroxysmal atrial fibrillation: Plan: -HR currently controlled -Continue metoprolol and Dig on even days -Continue eliquis Admission and Anticipated Discharge Date Admission Date: December 04, 2022 Subjective Patient says that she does not feel short of breath today. She has been on 3 L of oxygen. She underwent dialysis for 2 days back to back on 12/05 and 12/06. Review of Systems Review of Systems: All systems reviewed & are unremarkable except as noted in Subjective Physical Exam Physical Exam: General: Awake, conversant, obese Heart: S1, S2/regular rate and rhythm, no murmur rubs or gallops Lungs: Less bibasilar crackles. Normal effort Abdomen: Soft/nontender/nondistended. No hepatosplenomegaly Extremities: No clubbing/cyanosis. No edema Behavior: Appropriate, cooperative Results & Data Results & Data Vital Signs (Past 12 Hours) Vital Signs Temp Pulse Pulse Resp BP Pulse Ox O2 Del Method 12/07/22 12:03 37.2 C 83 22 95/55 L 93 Nasal Cannula 12/07/22 09:19 Nasal Cannula 12/07/22 09:17 73 12/07/22 07:32 37.2 C 76 20 98/49 L 92 Nasal Cannula 12/07/22 03:21 37.0 C 78 18 99/62 L 96 Nasal Cannula O2 Flow Rate 12/07/22 12:03 3.0 12/07/22 09:19 3 12/07/22 09:17 12/07/22 07:32 3.0 12/07/22 03:21 3 Laboratory Results Abnormal lab results 12/06/22 12/06/22 12/06/22 Range/Units 13:27 16:22 20:05 RBC (4.20-5.40) M/uL Hgb (12.0-16.0) g/dl Hct (37.0-47.0) % MCV (80.0-100.0) fL MCHC (32.0-36.0) g/dL RDW Std Deviation (36.4-46.3) fL RDW Coeff of Carolynn (11.5-14.5) % Plt Count (130-400) K/uL MPV (9.4-12.4) fL Neut # (Auto) (1.40-6.50) K/uL Lymph # (Auto) (1.2-3.4) K/uL [place] # (Auto) (0.11-0.59) K/uL Chloride (98-107) mmol/L BUN (6-23) mg/dl Creatinine (0.6-1.2) mg/dl BUN/Creatinine Ratio (10-20) Glucose (70-99(Fasting)) mg/dl POC Glucose 127 H 192 H 176 H (70-99) mg/dl Phosphorus (2.5-4.9) mg/dl Magnesium (1.7-2.4) mg/dl Digoxin (0.8-2.0) ng/ml 12/06/22 12/07/22 12/07/22 Range/Units 23:26 04:22 05:52 RBC 5.44 H (4.20-5.40) M/uL Hgb 17.1 H (12.0-16.0) g/dl Hct 57.1 H (37.0-47.0) % MCV 105.0 H (80.0-100.0) fL MCHC 29.9 L (32.0-36.0) g/dL RDW Std Deviation 69.0 H (36.4-46.3) fL RDW Coeff of Carolynn 18.0 H (11.5-14.5) % Plt Count 104 L (130-400) K/uL MPV 12.6 H (9.4-12.4) fL Neut # (Auto) 7.36 H (1.40-6.50) K/uL Lymph # (Auto) 1.02 L (1.2-3.4) K/uL [place] # (Auto) 0.72 H (0.11-0.59) K/uL Chloride (98-107) mmol/L BUN (6-23) mg/dl Creatinine (0.6-1.2) mg/dl BUN/Creatinine Ratio (10-20) Glucose (70-99(Fasting)) mg/dl POC Glucose 167 H 160 H (70-99) mg/dl Phosphorus (2.5-4.9) mg/dl Magnesium (1.7-2.4) mg/dl Digoxin (0.8-2.0) ng/ml 12/07/22 12/07/22 12/07/22 Range/Units 05:52 05:52 07:06 RBC (4.20-5.40) M/uL Hgb (12.0-16.0) g/dl Hct (37.0-47.0) % MCV (80.0-100.0) fL MCHC (32.0-36.0) g/dL RDW Std Deviation (36.4-46.3) fL RDW Coeff of Carolynn (11.5-14.5) % Plt Count (130-400) K/uL MPV (9.4-12.4) fL Neut # (Auto) (1.40-6.50) K/uL Lymph # (Auto) (1.2-3.4) K/uL [place] # (Auto) (0.11-0.59) K/uL Chloride 96 L (98-107) mmol/L BUN 29 H (6-23) mg/dl Creatinine 5.93 H* D (0.6-1.2) mg/dl BUN/Creatinine Ratio 4.9 L (10-20) Glucose 157 H (70-99(Fasting)) mg/dl POC Glucose 143 H (70-99) mg/dl Phosphorus 7.7 H (2.5-4.9) mg/dl Magnesium 2.5 H (1.7-2.4) mg/dl Digoxin 0.5 L (0.8-2.0) ng/ml 12/07/22 Range/Units 11:13 RBC (4.20-5.40) M/uL Hgb (12.0-16.0) g/dl Hct (37.0-47.0) % MCV (80.0-100.0) fL MCHC (32.0-36.0) g/dL RDW Std Deviation (36.4-46.3) fL RDW Coeff of Carolynn (11.5-14.5) % Plt Count (130-400) K/uL MPV (9.4-12.4) fL Neut # (Auto) (1.40-6.50) K/uL Lymph # (Auto) (1.2-3.4) K/uL [place] # (Auto) (0.11-0.59) K/uL Chloride (98-107) mmol/L BUN (6-23) mg/dl Creatinine (0.6-1.2) mg/dl BUN/Creatinine Ratio (10-20) Glucose (70-99(Fasting)) mg/dl POC Glucose 180 H (70-99) mg/dl Phosphorus (2.5-4.9) mg/dl Magnesium (1.7-2.4) mg/dl Digoxin (0.8-2.0) ng/ml PG Care Time/CCT Total # of Minutes Spent Total Time Spent with Patient: Total time spent is greater than 50% in coordination of care (as documented) at patient's floor/unit and/or counseling patient: Coding Level of Care Code 82473 SUB INP/OBS CARE 2/35MIN Diagnoses Acute respiratory failure with hypoxia J96.01 Cellulitis L03.90 End stage renal disease N18.6 Hypertension I10 Elevated troponin R77.8 Chronic diastolic congestive heart failure I50.32 Diabetic nephropathy associated with type 2 diabetes mellitus E11.21 Hyperlipidemia E78.5 Paroxysmal atrial fibrillation I48.0
--- NOTE | 2022-12-07 13:03 | Pharmacy Report ---
Pharmacy Glycemic Short Note 2 - Date of Service December 07, 2022 - Glycemic Short BSG Results (Last 24 hours): 12/06/22 12/06/22 12/06/22 13:27 16:22 20:05 Glucose POC Glucose 127 H 192 H 176 H 12/06/22 12/07/22 12/07/22 23:26 04:22 05:52 Glucose 157 H POC Glucose 167 H 160 H 12/07/22 12/07/22 07:06 11:13 Glucose POC Glucose 143 H 180 H OUTPATIENT ANTIDIABETIC REGIMEN: * Tresiba 80 units; aspart up to 90 units/day * A1c 6.9% 07/30/22- unreliable in the setting of HD ASSESSMENT: 12/07/22: * BSGs remain reasonably well-controlled on significantly less insulin than reported outpatient doses * Received 28 units of insulin yesterday (5 units of basal and 23 units of bolus) * Fasting BSG trending up a bit today, will plan on increasing basal 12/05/22: * Patient admitted with heart failure exacerbation/cellulitis. * Blood sugars have been in the low 80s since admission. * Lantus held this morning, will continue current scale up to 20 units tonight * Novolog parameters similar to weight based stress of 2 PLAN FOR INPATIENT GLYCEMIC CONTROL: * Hold outpatient oral diabetes medications * Basal insulin * Lantus 0/5/10 units SQ BID (see EHR for details) * Bolus insulin * NovoLog per scale ACHS or Q6hrs while NPO * Goal Range: Low 110 mg/dL - High 140 mg/dL * Correction Factor: 15 mg/dL/unit * Nutritional / Prandial insulin per carb ratio of 1 unit per 6 grams CHO consumed
--- NOTE | 2022-12-07 14:24 | Nephrology Progress Note ---
Date of Service December 07, 2022 Assessment & Plan (1) End stage renal disease: Plan: ESRDattributed to DKD. On HD MWF at [facility] (Former[facility]) under the care of Dr. Sampson. Left BC AV fistula functioning well. Electrolytes controlled. Volume status acceptable. No HD today. Next HD treatment planned for tomorrow. Deandra regularly takes midodrine up to TID for chronic hypotension. She is using the medication prior to HD. She is educated on use of the medication prior to HD for BP support. Dietary sodium and fluid restriction reenforced. Low sodium diet. 1 L per day fluid restriction. Medications appropriately dosed for IHD. Dietary phosphorus restriction. Phoslo QAC. (2) Acute respiratory failure with hypoxia: Plan: Notable improvement with UF. (3) Hypotension: Plan: Intradialytic hypotension. Continue midodrine 10 mg pretreatment. t/c dose reduction of metoprolol as tolerated. The medication was held yesterday evening due to low BP. Admission and Anticipated Discharge Date Admission Date: December 04, 2022 Subjective No acute events overnight. Deandra tolerated HD well yesterday with persistent hypotension. Net UF 3.5 L. Mild headache at the end of treatment but this resolved fairly quickly. She feels well today. Deandra hopes to be discharged home soon. Metoprolol was held yesterday evening due to low BP. Heart rate acceptable. No chest pain or palpitations. Denies shortness of breath. Review of Systems Review of Systems: All systems reviewed & are unremarkable except as noted in HPI & below Physical Exam Constitutional: well developed; no acute distress Eyes: no scleral abnormality and no corneal abnormality Neck: normal visual inspection and trachea midline Respiratory: normal respiratory effort Auscultation: lungs clear to auscultation bilaterally and + diminished lung sounds Cardiovascular: Rate/Rhythm: regular rate Heart Sounds: normal S1 and normal S2 Extremities: + edema Musculoskeletal: Extremities: no cyanosis and no clubbing Skin: normal turgor; no lesions Neurologic: Motor/Sensory: no tremor and no asterixis Psychiatric: Orientation: alert and oriented x 3 Results & Data Vital Signs (Past 12 Hours) Vital Signs Temp Pulse Pulse Resp BP Pulse Ox O2 Del Method 12/07/22 12:03 37.2 C 83 22 95/55 L 93 Nasal Cannula 12/07/22 09:19 Nasal Cannula 12/07/22 09:17 73 12/07/22 07:32 37.2 C 76 20 98/49 L 92 Nasal Cannula 12/07/22 03:21 37.0 C 78 18 99/62 L 96 Nasal Cannula O2 Flow Rate 12/07/22 12:03 3.0 12/07/22 09:19 3 12/07/22 09:17 12/07/22 07:32 3.0 12/07/22 03:21 3 Laboratory Results Laboratory Results - last 24 hr 12/06/22 12/06/22 12/06/22 16:22 20:05 23:26 WBC RBC Hgb Hct MCV MCH MCHC RDW Std Deviation RDW Coeff of Carolynn Plt Count MPV Immature Gran % (Auto) Neut % (Auto) Lymph % (Auto) Frontier % (Auto) Eos % (Auto) Baso % (Auto) Neut # (Auto) Lymph # (Auto) Frontier # (Auto) Eos # (Auto) Baso # (Auto) Immature Gran # (Auto) Absolute Nucleated RBC Nucleated RBC % (auto) PT INR Sodium Potassium Chloride Carbon Dioxide Anion Gap BUN Creatinine Est Cr Clr Drug Dosing Est GFR ( Amer) Est GFR (Non-Af Amer) BUN/Creatinine Ratio Glucose POC Glucose 192 H 176 H 167 H Calcium Phosphorus Magnesium Total Bilirubin AST ALT Alkaline Phosphatase Total Protein Albumin Globulin Albumin/Globulin Ratio Digoxin 12/07/22 12/07/22 12/07/22 04:22 05:52 05:52 WBC 9.38 RBC 5.44 H Hgb 17.1 H Hct 57.1 H MCV 105.0 H MCH 31.4 MCHC 29.9 L RDW Std Deviation 69.0 H RDW Coeff of Carolynn 18.0 H Plt Count 104 L MPV 12.6 H Immature Gran % (Auto) 0.9 Neut % (Auto) 78.4 Lymph % (Auto) 10.9 Frontier % (Auto) 7.7 Eos % (Auto) 1.7 Baso % (Auto) 0.4 Neut # (Auto) 7.36 H Lymph # (Auto) 1.02 L Frontier # (Auto) 0.72 H Eos # (Auto) 0.16 Baso # (Auto) 0.04 Immature Gran # (Auto) 0.08 Absolute Nucleated RBC 0.05 Nucleated RBC % (auto) 0.5 PT 11.5 INR 1.1 Sodium Potassium Chloride Carbon Dioxide Anion Gap BUN Creatinine Est Cr Clr Drug Dosing Est GFR ( Amer) Est GFR (Non-Af Amer) BUN/Creatinine Ratio Glucose POC Glucose 160 H Calcium Phosphorus Magnesium Total Bilirubin AST ALT Alkaline Phosphatase Total Protein Albumin Globulin Albumin/Globulin Ratio Digoxin 12/07/22 12/07/22 12/07/22 05:52 05:52 07:06 WBC RBC Hgb Hct MCV MCH MCHC RDW Std Deviation RDW Coeff of Carolynn Plt Count MPV Immature Gran % (Auto) Neut % (Auto) Lymph % (Auto) Frontier % (Auto) Eos % (Auto) Baso % (Auto) Neut # (Auto) Lymph # (Auto) Frontier # (Auto) Eos # (Auto) Baso # (Auto) Immature Gran # (Auto) Absolute Nucleated RBC Nucleated RBC % (auto) PT INR Sodium 136 Potassium 4.5 Chloride 96 L Carbon Dioxide 31 Anion Gap 9 BUN 29 H Creatinine 5.93 H* D Est Cr Clr Drug Dosing 14.6 Est GFR ( Amer) 8.2 Est GFR (Non-Af Amer) 7.1 BUN/Creatinine Ratio 4.9 L Glucose 157 H POC Glucose 143 H Calcium 9.7 Phosphorus 7.7 H Magnesium 2.5 H Total Bilirubin 0.4 AST 15 ALT 16 Alkaline Phosphatase 75 Total Protein 7.4 Albumin 4.0 Globulin 3.4 Albumin/Globulin Ratio 1.2 Digoxin 0.5 L 12/07/22 11:13 WBC RBC Hgb Hct MCV MCH MCHC RDW Std Deviation RDW Coeff of Carolynn Plt Count MPV Immature Gran % (Auto) Neut % (Auto) Lymph % (Auto) Frontier % (Auto) Eos % (Auto) Baso % (Auto) Neut # (Auto) Lymph # (Auto) Frontier # (Auto) Eos # (Auto) Baso # (Auto) Immature Gran # (Auto) Absolute Nucleated RBC Nucleated RBC % (auto) PT INR Sodium Potassium Chloride Carbon Dioxide Anion Gap BUN Creatinine Est Cr Clr Drug Dosing Est GFR ( Amer) Est GFR (Non-Af Amer) BUN/Creatinine Ratio Glucose POC Glucose 180 H Calcium Phosphorus Magnesium Total Bilirubin AST ALT Alkaline Phosphatase Total Protein Albumin Globulin Albumin/Globulin Ratio Digoxin PG Care Time/CCT Total # of Minutes Spent Total Time Spent with Patient: Total time spent is greater than 50% in coordination of care (as documented) at patient's floor/unit and/or counseling patient: Coding Level of Care Code 19010 SUB INP/OBS CARE 50MIN Diagnoses End stage renal disease N18.6 Acute respiratory failure with hypoxia J96.01 Hypotension I95.9
[2022-12-07] MEDS: GABAPENTIN 100 MG CAP PO SCH (20:36)
[2022-12-07] MEDS: METOPROLOL SUCC 50MG EXT REL TAB PO SCH ×2 (20:36→20:38)
[2022-12-07] MEDS: ROSUVASTATIN CALCIUM 10 MG TAB PO SCH (20:36)
[2022-12-07] MEDS ORDERED: SODIUM CHLORIDE 0.65% NA SOLN 45 ML (OCEAN) PRN (20:42)
[2022-12-08] MEDS ORDERED: MIDODRINE HCL 10 MG TAB PO ONE (07:00)
[2022-12-08] MEDS: MIDODRINE HCL 10 MG TAB PO SCH (08:27)
[2022-12-08] MEDS: VENLAFAXINE HCL 37.5 MG TAB PO SCH ×2 (08:27→20:49)
[2022-12-08] MEDS: APIXABAN 5 MG TABLET PO SCH ×2 (08:27→20:50)
[2022-12-08] MEDS: CALCIUM ACETATE 667 MG CAP/TAB PO SCH ×3 (08:28→17:24)
[2022-12-08] MEDS: LANTUS PER UNIT CHARGE SQ SCH ×2 (08:39→21:10)
[2022-12-08] MEDS: INSULIN ASPART PER UNIT CHARGE SC SCH ×4 (08:40→21:11)
[2022-12-08 09:09] LABS: Albumin Level 3.5 gm/dl (3.4-5.0); Calcium 9.4 mg/dl (8.6-10.3)
[2022-12-08 09:18] LABS: BUN Creatinine Ratio 6.6 (10-20); Creatinine Clr Calc Pharmacy 10.4 ml/min; Est GFR (African American) 5.4 ml/min; Est GFR (Non-African American) 4.7 ml/min; Phosphorus 8.1 mg/dl (2.5-4.9)
[2022-12-08 09:20] LABS: Hematocrit (blood only) 50.8 % (37.0-47.0); Hemoglobin 15.3 g/dl (12.0-16.0)
--- NOTE | 2022-12-08 09:28 | Nephrology Progress Note ---
Date of Service December 08, 2022 Assessment & Plan (1) End stage renal disease: Plan: ESRDattributed to DKD. On HD MWF at [facility] under the care of Dr. Sampson. Left BC AV fistula functioning well. EDW 136.5 kg. Orders for HD today entered into EHR and reviewed with corrosion technician. Sammie gomez. UF goal 2 L. Deandra regularly takes midodrine up to TID for chronic hypotension. She is using the medication prior to HD. She is educated on use of the medication prior to HD for BP support. Dietary sodium and fluid restriction reenforced. Low sodium diet. 1 L per day fluid restriction. Medications appropriately dosed for IHD. Dietary phosphorus restriction. Phoslo QAC. (2) Acute respiratory failure with hypoxia: Plan: Notable improvement with UF. (3) Hypotension: Plan: Intradialytic hypotension. Continue midodrine 10 mg pretreatment. t/c dose reduction of metoprolol as tolerated. Close outpatient follow up with cardiology. Metoprolol has not been administered since admission due to low BP. Admission and Anticipated Discharge Date Admission Date: December 04, 2022 Subjective No acute events overnight. No complaints this AM. Breathing comfortably. Denies notable fluid retention or edema. Metoprolol has been held since admission. Review of Systems Review of Systems: All systems reviewed & are unremarkable except as noted in HPI & below Physical Exam Constitutional: well developed; no acute distress Eyes: no scleral abnormality and no corneal abnormality Neck: normal visual inspection and trachea midline Respiratory: normal respiratory effort Auscultation: lungs clear to auscultation bilaterally Cardiovascular: Rate/Rhythm: regular rate Heart Sounds: normal S1 and normal S2 Extremities: + edema and + AV fistula Musculoskeletal: Extremities: no cyanosis and no clubbing Skin: normal turgor; no lesions Neurologic: Motor/Sensory: no tremor and no asterixis Psychiatric: Orientation: alert and oriented x 3 Results & Data Vital Signs (Past 12 Hours) Vital Signs Temp Pulse Pulse Pulse Resp BP Pulse Ox 12/08/22 07:32 37.0 C 78 23 118/59 L 94 12/08/22 07:31 78 12/08/22 03:40 22 12/08/22 03:18 37.4 C 85 25 H 99/54 L 93 12/07/22 23:27 82 12/07/22 23:07 37.8 C H 88 23 121/61 91 O2 Del Method O2 Flow Rate 12/08/22 07:32 Nasal Cannula 3 12/08/22 07:31 12/08/22 03:40 12/08/22 03:18 Nasal Cannula 3 12/07/22 23:27 12/07/22 23:07 Nasal Cannula 3 Laboratory Results Laboratory Results - last 24 hr 12/07/22 12/07/22 12/07/22 11:13 16:10 20:20 Hgb Hct Sodium Potassium Chloride Carbon Dioxide Anion Gap BUN Creatinine Est Cr Clr Drug Dosing Est GFR ( Amer) Est GFR (Non-Af Amer) BUN/Creatinine Ratio Glucose POC Glucose 180 H 144 H 128 H Calcium Phosphorus Albumin 12/08/22 12/08/22 12/08/22 07:08 08:41 08:41 Hgb 15.3 Hct 50.8 H Sodium 135 L Potassium 5.0 Chloride 96 L Carbon Dioxide 29 Anion Gap 10 BUN 55 H D Creatinine 8.34 H* D Est Cr Clr Drug Dosing 10.4 Est GFR ( Amer) 5.4 Est GFR (Non-Af Amer) 4.7 BUN/Creatinine Ratio 6.6 L Glucose 199 H POC Glucose 152 H Calcium 9.4 Phosphorus 8.1 H Albumin 3.5 PG Care Time/CCT Total # of Minutes Spent Total Time Spent with Patient: Total time spent is greater than 50% in coordination of care (as documented) at patient's floor/unit and/or counseling patient: Coding Level of Care Code 71021 SUB INP/OBS CARE 3/50MIN Diagnoses End stage renal disease N18.6 Acute respiratory failure with hypoxia J96.01 Hypotension I95.9
--- NOTE | 2022-12-08 11:04 | Hospitalist Progress Note ---
Date of Service December 08, 2022 Assessment & Plan (1) Acute respiratory failure with hypoxia: Plan: -Most likely related to CHF exacerbation because of inability to remove enough fluid on dialysis due to blood pressure limitation. She is on midodrine 10 mg daily to keep her blood pressure up Per property field inspector, she has taken midodrine 10 mg up to 3 times a day. She can take an extra dose of Midrin on her dialysis days. She is also on metoprolol which she needs for atrial fibrillation. Recently, the dose of metoprolol XL has been increased to 100 mg for rate control. Other than the metoprolol, she is not on any other antihypertensive agents that I can stop. Other possibilities like PE and pneumonia are less likely. Procalcitonin level was negative. She does not have any fever or elevated white count to suggest infection like pneumonia. Her lower extremity ultrasound was negative for DVT and she is on Eliquis which makes PE less likely. I heard bibasilar crackles and her chest x-ray is suggestive of vascular congestion. I think CHF is the most likely diagnosis. We will need to optimize her for dialysis so more fluid can be removed during outpatient dialysis sessions. She took 2 tablets of 10 mg of midodrine this morning and skipped her dose of metoprolol and yet her systolic blood pressure is in the 80s during dialysis although she is not symptomatic with it. I spoke to Dr. Alen Diaz, the patient's primary reversing mill roller on the phone today 12/08. He recommended lowering the dose of metoprolol XL to 50 mg on dialysis days if the extra dose of midodrine is not enough to bring her blood pressure up. Continue oxygen per nasal cannula. Wean as tolerated. Continue dialysis. She had 2 [id number] sessions 12/05 and 12/06. Getting dialyzed today 12/08 again. In the last few sessions of dialysis, she has been hypotensive during dialysis. The degree of hypotension may not be acceptable at outpatient dialysis in future. This will lead to incomplete dialysis and volume overload again increasing the risk of hospital readmission (2) Cellulitis: Plan: -It appears that the patient likely has cellulitis of the LLE due to her fall and left great toe laceration on -No signs of abscess or fluctuation on palpation -X-ray of the left toe ruled out osteomyelitis. Lower extremity duplex ultrasound ruled out left lower extremity DVT. MRSA swab negative Continue cefepime to cover Pseudomonas Cellulitis cleared. May switch to p.o. antibiotics Blood cultures negative so far (3) End stage renal disease: Plan: -Gets HD on MWF, had a half full session on 12/03, limited by hypotension Nephrology on board for dialysis Patient is on metoprolol which she needs for A-fib rate control Other than that, she is not on any other antihypertensive agents that I can stop to allow for improved blood pressure during dialysis She is on midodrine which can be used more liberally on dialysis days. The dose of midodrine can be increased The metoprolol dose can be halved on dialysis days (4) Hypertension: Plan: -Stable -Patient has been having more issues with hypotension, especially on dialysis days -Will need to continue metoprolol for hx of afib/flutter but can consider giving lower dose on dialysis days -Continue midodrine daily with additional doses as needed on dialysis days (5) Elevated troponin: Plan: -Initial high sen trop elevated at 30 with 2 hour repeat of 31 -The patient is without chest discomfort or acute ECG changes -Likely due to demand for hypoxia and volume overload in the setting of ESRD -Continue to monitor on tele (6) Chronic diastolic congestive heart failure: Plan: -See Acute hypoxic respiratory failure (7) Diabetic nephropathy associated with type 2 diabetes mellitus: Plan: -Monitor BSG ACHS, goal is 110-160 -Typically takes 80 units Tresiba in the am for basal insulin -Will convert to 20 units lantus BID for now to avoid hypoglycemia -CF of 50 with CR of 15 -Pharmacy glycemic consult placed (8) Hyperlipidemia: Plan: -Continue statin (9) Paroxysmal atrial fibrillation: Plan: -HR currently controlled -Continue metoprolol and Dig on even days -Continue eliquis Admission and Anticipated Discharge Date Admission Date: December 04, 2022 Subjective Patient seen at dialysis. She skipped her metoprolol dose today. She was given an extra dose of midodrine (Two 10 mg tablets) this morning. Her systolic blood pressure during dialysis is in the 80s. She does not complain of dizziness or lightheadedness with low blood pressure readings. Dialysis is being continued. Review of Systems Review of Systems: All systems reviewed & are unremarkable except as noted in Subjective Physical Exam Physical Exam: General: Awake, conversant, obese Heart: S1, S2/regular rate and rhythm, no murmur rubs or gallops Lungs: Less bibasilar crackles. Normal effort Abdomen: Soft/nontender/nondistended. No hepatosplenomegaly Extremities: No clubbing/cyanosis. No edema Behavior: Appropriate, cooperative Results & Data Results & Data Vital Signs (Past 12 Hours) Vital Signs Temp Pulse Pulse Pulse Resp BP BP 12/08/22 10:30 87 96/57 L 12/08/22 10:00 58 L 80/40 L 12/08/22 09:30 73 97/52 L 12/08/22 09:00 76 110/61 12/08/22 08:55 37.1 C 78 12/08/22 07:32 37.0 C 78 23 118/59 L 12/08/22 07:31 78 12/08/22 03:40 22 12/08/22 03:18 37.4 C 85 25 H 99/54 L 12/07/22 23:27 82 12/07/22 23:07 37.8 C H 88 23 121/61 Pulse Ox O2 Del Method O2 Flow Rate 12/08/22 10:30 12/08/22 10:00 12/08/22 09:30 12/08/22 09:00 12/08/22 08:55 12/08/22 07:32 94 Nasal Cannula 3 12/08/22 07:31 12/08/22 03:40 12/08/22 03:18 93 Nasal Cannula 3 12/07/22 23:27 12/07/22 23:07 91 Nasal Cannula 3 Laboratory Results Abnormal lab results 12/07/22 12/07/22 12/07/22 Range/Units 11:13 16:10 20:20 Hct (37.0-47.0) % Sodium (136-145) mmol/L Chloride (98-107) mmol/L BUN (6-23) mg/dl Creatinine (0.6-1.2) mg/dl BUN/Creatinine Ratio (10-20) Glucose (70-99(Fasting)) mg/dl POC Glucose 180 H 144 H 128 H (70-99) mg/dl Phosphorus (2.5-4.9) mg/dl 12/08/22 12/08/22 12/08/22 Range/Units 07:08 08:41 08:41 Hct 50.8 H (37.0-47.0) % Sodium 135 L (136-145) mmol/L Chloride 96 L (98-107) mmol/L BUN 55 H D (6-23) mg/dl Creatinine 8.34 H* D (0.6-1.2) mg/dl BUN/Creatinine Ratio 6.6 L (10-20) Glucose 199 H (70-99(Fasting)) mg/dl POC Glucose 152 H (70-99) mg/dl Phosphorus 8.1 H (2.5-4.9) mg/dl PG Care Time/CCT Total # of Minutes Spent Total Time Spent with Patient: Total time spent is greater than 50% in coordination of care (as documented) at patient's floor/unit and/or counseling patient: Coding Level of Care Code 39240 SUB INP/OBS CARE 2/35MIN Diagnoses Acute respiratory failure with hypoxia J96.01 Cellulitis L03.90 End stage renal disease N18.6 Hypertension I10 Elevated troponin R77.8 Chronic diastolic congestive heart failure I50.32 Diabetic nephropathy associated with type 2 diabetes mellitus E11.21 Hyperlipidemia E78.5 Paroxysmal atrial fibrillation I48.0
--- NOTE | 2022-12-08 11:54 | Pharmacy Report ---
Pharmacy Glycemic Short Note 2 - Date of Service December 08, 2022 - Glycemic Short BSG Results (Last 24 hours): 12/07/22 12/07/22 12/08/22 16:10 20:20 07:08 Glucose POC Glucose 144 H 128 H 152 H 12/08/22 08:41 Glucose 199 H POC Glucose OUTPATIENT ANTIDIABETIC REGIMEN: * Tresiba 80 units SC daily * Novolog SC AC per sliding scale (up to 90 units/day) * HbA1c: 6.9% (07/30/22) * Unreliable in the setting of HD ASSESSMENT: 12/08: * Deandra received 36 units of insulin yesterday, 5 units basal + 31 units bolus. BSGs were: [phone] mg/dL. * Fasting BSG slightly increased to 152 mg/dL this AM. Will continue with current scaled basal regimen which will provide more basal if hyperglycemic. * No change to Novolog today. * Patient to HD this AM. Did receive 5 units Lantus per scale. 12/07: * BSGs remain reasonably well-controlled on significantly less insulin than reported outpatient doses * Received 28 units of insulin yesterday (5 units of basal and 23 units of bolus) * Fasting BSG trending up a bit today, will plan on increasing basal 12/05: * Patient admitted with heart failure exacerbation/cellulitis. * Blood sugars have been in the low 80s since admission. * Lantus held this morning, will continue current scale up to 20 units tonight * Novolog parameters similar to weight based stress of 2 PLAN FOR INPATIENT GLYCEMIC CONTROL: * Basal insulin * Lantus 0/5/10 units SC BID (see EHR for details) * Bolus insulin * NovoLog per scale ACHS or Q6hrs while NPO * Goal Range: Low 110 mg/dL - High 140 mg/dL * Correction Factor: 15 mg/dL/unit * Nutritional / Prandial insulin per carb ratio of 1 unit per 6 grams CHO consumed
[2022-12-08] MEDS: ACETAMINOPHEN 325 MG TAB PO PRN (20:49)
[2022-12-08] MEDS: ROSUVASTATIN CALCIUM 10 MG TAB PO SCH (20:49)
[2022-12-08] MEDS: GABAPENTIN 100 MG CAP PO SCH (20:50)
[2022-12-08] MEDS: METOPROLOL SUCC 50MG EXT REL TAB PO SCH (20:53)
[2022-12-09] MEDS: LANTUS PER UNIT CHARGE SQ SCH ×2 (08:31→21:11)
[2022-12-09] MEDS: INSULIN ASPART PER UNIT CHARGE SC SCH ×4 (08:33→21:11)
[2022-12-09] MEDS: VENLAFAXINE HCL 37.5 MG TAB PO SCH ×2 (08:38→20:34)
[2022-12-09] MEDS: APIXABAN 5 MG TABLET PO SCH ×2 (08:38→20:32)
[2022-12-09] MEDS: DIGOXIN 0.125 MG TAB PO SCH (08:38)
[2022-12-09] MEDS: CALCIUM ACETATE 667 MG CAP/TAB PO SCH ×3 (08:39→16:55)
[2022-12-09] MEDS: MIDODRINE HCL 10 MG TAB PO SCH (08:39)
[2022-12-09] MEDS: ACETAMINOPHEN 325 MG TAB PO PRN ×2 (08:42→20:29)
--- NOTE | 2022-12-09 10:12 | Nephrology Progress Note ---
Date of Service December 09, 2022 Assessment & Plan (1) End stage renal disease: Plan: ESRDattributed to DKD. On HD MWF at [facility] under the care of Dr. Sampson. Left BC AV fistula functioning well. EDW 136.5 kg. Remains below EDW. Volume status acceptable. Tolerated treatment well yesterday. Chronic intradialytic hypotension has been seen since prior to admission but reasonably controlled with midodrine. Appropriate clearance with dialysis treatment. Deandra regularly takes midodrine up to TID for hypotension. She is using the medication prior to HD and typically takes an additional dose immediately following treatment. She is educated on use of the medication prior to HD for BP support. Dietary sodium and fluid restriction have been continuously reenforced. Low sodium diet. 1 L per day fluid restriction. Medications appropriately dosed for IHD. Dietary phosphorus restriction. Phoslo QAC. Deandra remains stable for discharge from a nephrology standpoint. (2) Acute respiratory failure with hypoxia: Plan: Remains on supplemental O2 weaned to 2 L NC. Deandra does often wear O2 during HD but she has not had oxygen at home. Suspect she will benefit from 2 step prior to discharge. (3) Hypotension: Plan: Intradialytic hypotension. Continue midodrine 10 mg pretreatment. t/c dose reduction of metoprolol as tolerated. Metoprolol has not been administered since admission due to low BP. Deandra needs to get out of bed with therapy and I suspect tele could be discontinued to assess readiness to return home. Admission and Anticipated Discharge Date Admission Date: December 04, 2022 Subjective No acute events overnight. Deandra would like to be discharged home today. Unfortunately, she states that she has not been out of bed since admission. Tolerated HD well yesterday. No complications with treatment. Net UF 2 L. BP low but acceptable throughout treatment. Metoprolol has continued to be held. Remains on supplemental O2 weaned to 2 L NC. No fevers or chills. Reports feeling achy from hospital bed. Review of Systems Review of Systems: All systems reviewed & are unremarkable except as noted in HPI & below Physical Exam Constitutional: well developed and + morbidly obese; no acute distress Eyes: no scleral abnormality and no corneal abnormality ENMT: Mouth: no oral mucosal abnormality and oral mucous membranes not dry Neck: normal visual inspection and trachea midline Respiratory: normal respiratory effort Auscultation: lungs clear to auscultation bilaterally Cardiovascular: Rate/Rhythm: regular rate Heart Sounds: normal S1 and normal S2 Extremities: + AV fistula Musculoskeletal: Extremities: no cyanosis and no clubbing Skin: + turgor decreased; no jaundice Neurologic: Motor/Sensory: no tremor and no asterixis Psychiatric: Orientation: alert and oriented x 3 Results & Data Vital Signs (Past 12 Hours) Vital Signs Temp Pulse Pulse Resp BP Pulse Ox O2 Del Method 12/09/22 08:38 92 H 12/09/22 07:21 36.8 C 89 23 112/57 L 92 Nasal Cannula 12/09/22 03:00 37.0 C 85 18 105/55 L 94 Nasal Cannula 12/08/22 23:00 37.1 C 76 15 91/54 L 94 Nasal Cannula 12/08/22 23:52 81 O2 Flow Rate 12/09/22 08:38 12/09/22 07:21 2.0 12/09/22 03:00 2 12/08/22 23:00 2 12/08/22 23:52 Laboratory Results Laboratory Results - last 24 hr 12/08/22 12/08/22 12/08/22 13:19 15:53 20:59 POC Glucose 136 H 176 H 149 H 12/09/22 07:19 POC Glucose 139 H PG Care Time/CCT Total # of Minutes Spent Total Time Spent with Patient: Total time spent is greater than 50% in coordination of care (as documented) at patient's floor/unit and/or counseling patient: Coding Level of Care Code 50860 SUB INP/OBS CARE 3/50MIN Diagnoses End stage renal disease N18.6 Acute respiratory failure with hypoxia J96.01 Hypotension I95.9
--- NOTE | 2022-12-09 13:38 | Pharmacy Report ---
Pharmacy Glycemic Short Note 2 - Date of Service December 09, 2022 - Glycemic Short BSG Results (Last 24 hours): 12/08/22 12/08/22 12/09/22 15:53 20:59 07:19 POC Glucose 176 H 149 H 139 H 12/09/22 11:11 POC Glucose 228 H OUTPATIENT ANTIDIABETIC REGIMEN: * Tresiba 80 units SC daily * Novolog SC AC per sliding scale (up to 90 units/day) * HbA1c: 6.9% (07/30/22) * Unreliable in the setting of HD ASSESSMENT: 12/09: * Patient received 32 units of insulin yesterday, 10 units of basal + 22 units of bolus. BSGs [phone] mg/dL * Fasting BSG within range today, 139 mg/dL- adjusted basal scale so patient is likely to get similar * No change to novolog at current time- lunch BSG elevated today- will monitor, tighten carb ratio if trend continues 12/08: * Deandra received 36 units of insulin yesterday, 5 units basal + 31 units bolus. BSGs were: [phone] mg/dL. * Fasting BSG slightly increased to 152 mg/dL this AM. Will continue with current scaled basal regimen which will provide more basal if hyperglycemic. * No change to Novolog today. * Patient to HD this AM. Did receive 5 units Lantus per scale. 12/07: * BSGs remain reasonably well-controlled on significantly less insulin than reported outpatient doses * Received 28 units of insulin yesterday (5 units of basal and 23 units of bolus) * Fasting BSG trending up a bit today, will plan on increasing basal 12/05: * Patient admitted with heart failure exacerbation/cellulitis. * Blood sugars have been in the low 80s since admission. * Lantus held this morning, will continue current scale up to 20 units tonight * Novolog parameters similar to weight based stress of 2 PLAN FOR INPATIENT GLYCEMIC CONTROL: * Basal insulin * Lantus 0/5/10 units SC BID (see EHR for details) * Bolus insulin * NovoLog per scale ACHS or Q6hrs while NPO * Goal Range: Low 110 mg/dL - High 140 mg/dL * Correction Factor: 15 mg/dL/unit * Nutritional / Prandial insulin per carb ratio of 1 unit per 6 grams CHO consumed
[2022-12-09] MEDS ORDERED: Nursing to Pharmacy Communication SCH (16:00)
--- NOTE | 2022-12-09 16:05 | XCELERA ---
[id number] \\[id number]
--- NOTE | 2022-12-09 18:08 | CT Scan Report ---
CT chest diagnostic wo con CT DOSE: 952.01 mGy.cm HISTORY: persistent hypoxia; edema? ILD? other? TECHNIQUE: Multiaxial CT images of the chest were performed without contrast. A dose lowering techni que was utilized adhering to the principles of ALARA. COMPARISON: None. FINDINGS: The central airways are patent. No pneumothorax. No pleural effusions. Scattered linear den sities seen throughout the lungs most pronounced within the lung bases, left greater than right. Thes e favor a combination of subsegmental atelectasis and scarring. A superimposed pneumonia could also h ave a similar appearance but is considered less likely. Subtle interlobular septal thickening and shantell nt upper lobe groundglass densities favor mild congestive change. No overt pulmonary edema. No acute fractures identified. No suspicious lytic or blastic osseous lesions. A 3.5 cm left thyroid nodule. L imited views of the upper abdomen demonstrate a normal liver and spleen. The visualized adrenal gland s are unremarkable. Normal esophagus. Low lung volumes. No mediastinal or hilar lymphadenopathy. The heart is enlarged. No pericardial effusion. Mild calcified plaque within the normal caliber thoracic aorta. The main pulmonary artery is dilated up to 4.4 cm. This is consistent with pulmonary arterial hypertension. IMPRESSION: 1. Cardiomegaly with mild congestive change. 2. Pulmonary arterial hypertension. 3. Scattered linear densities seen throughout the lungs most pronounced within the lung bases, left g reater than right. These favor a combination of subsegmental atelectasis and scarring. A superimposed pneumonia could also have a similar appearance but is considered less likely. 4. A 3.5 cm left thyroid nodule. Follow-up nonemergent ultrasound recommended for further evaluation. ACT 112: Negative or not required by law. Electronically signed by: London Franco M.D. 12/09/2022 6:06 PM
--- NOTE | 2022-12-09 18:53 | Hospitalist Progress Note ---
Date of Service December 09, 2022 Assessment & Plan (1) Acute respiratory failure with hypoxia and hypercapnia: Plan: Presented with O2 sats <80% and pCO2 in the 70s. Has required NC O2 ever since. Hypoxia has been presumed 2nd to pulmonary edema/volume overload. Despite serial HD treatments she continues with NC O2 requirement. She promptly desaturates with removal of her O2. She states she has been compliant with her Eliquis pre-admission. Patient may have OHS/TARAS contributing to NC O2 requirement. Will obtain CT chest - noncontrast - to rule out other etiologies (ongoing edema, effusions, ILD, etc). Also obtain repeat echo to reassess right heart and PA pressures. HD session is planned for tomorrow. (2) Cellulitis: Plan: LLE/left foot. resolved on exam today. received cefepime IV for such earlier in the admission. All abx have been d/c. (3) End stage renal disease: Plan: Typical schedule M/W/F at [facility] in [place]. Outpatient HD sessions have been limited by hypotension by report. This likely has led to volume overload slowly over time. Appreciate [facility] assistance. Patient to continue with midodrine daily. Consider cortisol level in am given persistent relative hypotension. Await CT chest to assess for ongoing volume overloaded state. Continue phos binders, etc. (4) Hypertension: Plan: Has had relative hypotension as outpatient and intermittently throughout the stay. She is taking midodrine daily - continue such. Metoprolol succinate has been held per parameters during the hospitalization. Check cortisol in am. (5) Elevated troponin: Plan: Either 2nd to myocardial demand ischemia in setting of #1 OR 2nd to ESRD status. No evidence of ACS. (6) Chronic diastolic congestive heart failure: Plan: Volume overload/pulmonary edema is on the basis of ESRD rather than primary cardiac issue. (7) Diabetic nephropathy associated with type 2 diabetes mellitus: Plan: Appreciate Pharmacy glycemic consult. Cont basal-bolus insulin. (8) Hyperlipidemia: Plan: Continue statin (9) Paroxysmal atrial fibrillation: Plan: Continue Eliquis 5mg BID Continue digoxin 0.0625mg QOD Metoprolol xl on hold due to relative hypotension Has remained NSR while here (10) Morbid obesity with BMI of 45.0-49.9, adult: Plan: BMI 45.7 (11) Thyroid nodule greater than or equal to 1.5 cm in diameter incidentally noted on imaging study: Plan: 3.5cm left thyroid nodule seen on CT chest today will need endo f/u for this nonurgently Plan DVT proph - eliquis 5mg BID needs PT/OT evals to determine if safe for d/c home Admission and Anticipated Discharge Date Admission Date: December 04, 2022 Subjective tele overnight wnl continues to require NC O2 - during my visit I removed the O2 and sats promptly dropped to the mid 80s within 10 seconds she continues to feel better in comparison to admission breathing is improved she does have baseline [place] denies cough denies chest pain denies orthopnea is NOT on O2 at home does not use BIPAP or CPAP Review of Systems Review of Systems: gen - no fevers cv - no cp, PND pulm - no dyspnea at rest; no wheezing GI - no abd pain Physical Exam Physical Exam: gen - NAD, obese neck - no obvious JVD mouth - MMM heart - RRR, s1 s2, no obvious murmur lungs - decreased BS bases, otherwise CTA b/l; no rales or wheeze abd - soft NT ND BS+ ext - no edema, pulses 2+ b/l skin - no cellulitis either leg or foot; left great toe ulcer with scab, clean, no drainage psych - a/o x 3 Results & Data Results & Data Vital Signs (Past 12 Hours) Vital Signs Temp Pulse Pulse Resp BP Pulse Ox O2 Del Method 12/09/22 15:54 85 12/09/22 15:17 36.8 C 85 22 115/59 L 92 Nasal Cannula 12/09/22 11:13 36.8 C 87 24 100/56 L 90 Nasal Cannula 12/09/22 10:00 92 H 12/09/22 10:00 Nasal Cannula 12/09/22 08:38 92 H 12/09/22 07:21 36.8 C 89 23 112/57 L 92 Nasal Cannula O2 Flow Rate 12/09/22 15:54 12/09/22 15:17 2.0 12/09/22 11:13 2.0 12/09/22 10:00 12/09/22 10:00 2 12/09/22 08:38 12/09/22 07:21 2.0 Laboratory Results Laboratory Results - last 24 hr 12/08/22 12/09/22 12/09/22 20:59 07:19 11:11 POC Glucose 149 H 139 H 228 H 12/09/22 16:16 POC Glucose 168 H PG Care Time/CCT Total # of Minutes Spent Total Time Spent with Patient: Total time spent is greater than 50% in coordination of care (as documented) at patient's floor/unit and/or counseling patient: Coding Level of Care Code 84921 SUB INP/OBS CARE 2/35MIN Diagnoses Acute respiratory failure with hypoxia and hypercapnia J96.01; J96.02 Cellulitis L03.90 End stage renal disease N18.6 Hypertension I10 Elevated troponin R77.8 Chronic diastolic congestive heart failure I50.32 Diabetic nephropathy associated with type 2 diabetes mellitus E11.21 Hyperlipidemia E78.5 Paroxysmal atrial fibrillation I48.0 Morbid obesity with BMI of 45.0-49.9, adult E66.01; Z68.42 Thyroid nodule greater than or equal to 1.5 cm in diameter incidentally noted on imaging study E04.1
[2022-12-09] MEDS: METOPROLOL SUCC 50MG EXT REL TAB PO SCH ×2 (20:31→20:37)
[2022-12-09] MEDS: GABAPENTIN 100 MG CAP PO SCH (20:32)
[2022-12-09] MEDS: ROSUVASTATIN CALCIUM 10 MG TAB PO SCH (20:33)
[2022-12-10] MEDS: MIDODRINE HCL 10 MG TAB PO SCH ×2 (07:40→16:53)
[2022-12-10] MEDS: APIXABAN 5 MG TABLET PO SCH ×2 (07:40→20:20)
[2022-12-10] MEDS: VENLAFAXINE HCL 37.5 MG TAB PO SCH ×2 (07:40→20:22)
[2022-12-10] MEDS: CALCIUM ACETATE 667 MG CAP/TAB PO SCH ×3 (07:40→16:53)
[2022-12-10 07:55] LABS: Hematocrit (blood only) 48.4 % (37.0-47.0); Hemoglobin 14.7 g/dl (12.0-16.0); Mean Corpuscular Hgb Conc 30.4 g/dL (32.0-36.0); Mean Corpuscular Volume 102.1 fL (80.0-100.0); Mean Platelet Volume 11.7 fL (9.4-12.4); Nucleated RBC # (auto) 0.02 K/uL (0-0.12); Nucleated RBC % (auto) 0.2 %; Platelet Count 133 K/uL (130-400); RDW Coefficient of Variation 16.6 % (11.5-14.5); RDW Standard Deviation 62.9 fL (36.4-46.3); Red Blood Count 4.74 M/uL (4.20-5.40); White Blood Count 9.73 K/ul (4.8-10.8)
[2022-12-10] MEDS: INSULIN ASPART PER UNIT CHARGE SC SCH ×4 (08:42→21:02)
[2022-12-10] MEDS: LANTUS PER UNIT CHARGE SQ SCH ×2 (08:43→21:02)
[2022-12-10] MEDS: ACETAMINOPHEN 325 MG TAB PO PRN (08:44)
[2022-12-10 10:06] LABS: BUN Creatinine Ratio 9.4 (10-20); Calcium 9.5 mg/dl (8.6-10.3); Creatinine Clr Calc Pharmacy 10.5 ml/min; Est GFR (African American) 5.5 ml/min; Est GFR (Non-African American) 4.7 ml/min; Potassium 5.4 mmol/L (3.5-5.1)
--- NOTE | 2022-12-10 10:33 | Nephrology Progress Note ---
Date of Service December 10, 2022 Assessment & Plan (1) End stage renal disease: Plan: ESRDattributed to DKD. On HD MWF at [facility] under the care of Dr. Sampson. Left BC AV fistula functioning well. EDW 136.5 kg. Challenge with added fluid removal this AM. Orders for HD this AM entered into the EHR and reviewed with nitrating acid mixer. Tolerating treatment well. Qb at goal. UF 2-2.5 L, as tolerated. Appropriate clearance with dialysis treatment. Midodrine 10 mg prior to HD and additional doses during day as needed. Metoprolol was given last evening. Dietary sodium and fluid restriction have been continuously reenforced. Low sodium diet. 1 L per day fluid restriction. Medications appropriately dosed for IHD. Dietary phosphorus restriction. [facility] nephrology would be happy to follow Deandra at [facility] or [facility] post discharge. (2) Acute respiratory failure with hypoxia: Plan: Remains on supplemental O2 weaned to 2 L NC. Challenge with additional fluid removal as tolerated during HD today. (3) Hypotension: Plan: Intradialytic hypotension. Continue midodrine 10 mg pretreatment. Metoprolol 100 mg provided yesterday evening. Admission and Anticipated Discharge Date Admission Date: December 04, 2022 Subjective No acute events overnight. Notable weakness when out of bed yesterday. Planning for rehab. Deandra was seen and evaluated during hemodialysis this AM. She is tolerating treatment well. BP low but stable. Review of Systems Review of Systems: All systems reviewed & are unremarkable except as noted in HPI & below Physical Exam Constitutional: well developed and + morbidly obese; no acute distress Eyes: no scleral abnormality and no corneal abnormality ENMT: Mouth: no oral mucosal abnormality and oral mucous membranes not dry Neck: normal visual inspection and trachea midline Respiratory: normal respiratory effort Auscultation: lungs clear to auscultation bilaterally and + diminished lung sounds Cardiovascular: Rate/Rhythm: regular rate Heart Sounds: normal S1 and normal S2 Extremities: + edema and + AV fistula Musculoskeletal: Extremities: no cyanosis and no clubbing Skin: normal turgor and + turgor decreased; no lesions and no jaundice Neurologic: Motor/Sensory: no tremor and no asterixis Psychiatric: Orientation: alert and oriented x 3 Results & Data Vital Signs (Past 12 Hours) Vital Signs Temp Pulse Pulse Pulse Resp BP Pulse Ox 12/10/22 09:00 63 12/10/22 09:00 12/10/22 07:12 36.8 C 62 18 90/61 L 95 12/10/22 03:25 36.7 C 67 18 103/50 L 12/10/22 03:19 83 12/09/22 22:41 36.7 C 79 18 91/53 L 96 O2 Del Method O2 Flow Rate 12/10/22 09:00 12/10/22 09:00 Nasal Cannula 2 12/10/22 07:12 Nasal Cannula 3.0 12/10/22 03:25 Nasal Cannula 3 12/10/22 03:19 12/09/22 22:41 Nasal Cannula 3 Laboratory Results Laboratory Results - last 24 hr 12/09/22 12/09/22 12/09/22 11:11 16:16 20:30 WBC RBC Hgb Hct MCV MCH MCHC RDW Std Deviation RDW Coeff of Carolynn Plt Count MPV Absolute Nucleated RBC Nucleated RBC % (auto) Sodium Potassium Chloride Carbon Dioxide Anion Gap BUN Creatinine Est Cr Clr Drug Dosing Est GFR ( Amer) Est GFR (Non-Af Amer) BUN/Creatinine Ratio Glucose POC Glucose 228 H 168 H 161 H Calcium Cortisol AM Sample 12/10/22 12/10/22 12/10/22 07:07 07:07 07:07 WBC 9.73 RBC 4.74 Hgb 14.7 Hct 48.4 H MCV 102.1 H MCH 31.0 MCHC 30.4 L RDW Std Deviation 62.9 H RDW Coeff of Carolynn 16.6 H Plt Count 133 MPV 11.7 Absolute Nucleated RBC 0.02 Nucleated RBC % (auto) 0.2 Sodium 132 L Potassium 5.4 H Chloride 98 Carbon Dioxide 22 Anion Gap 12 H BUN 78 H D Creatinine 8.29 H* Est Cr Clr Drug Dosing 10.5 Est GFR ( Amer) 5.5 Est GFR (Non-Af Amer) 4.7 BUN/Creatinine Ratio 9.4 L Glucose 177 H POC Glucose Calcium 9.5 Cortisol AM Sample 18.68 12/10/22 07:15 WBC RBC Hgb Hct MCV MCH MCHC RDW Std Deviation RDW Coeff of Carolynn Plt Count MPV Absolute Nucleated RBC Nucleated RBC % (auto) Sodium Potassium Chloride Carbon Dioxide Anion Gap BUN Creatinine Est Cr Clr Drug Dosing Est GFR ( Amer) Est GFR (Non-Af Amer) BUN/Creatinine Ratio Glucose POC Glucose 170 H Calcium Cortisol AM Sample PG Care Time/CCT Total # of Minutes Spent Total Time Spent with Patient: Total time spent is greater than 50% in coordination of care (as documented) at patient's floor/unit and/or counseling patient: Coding Level of Care Code 03222 SUB INP/OBS CARE 3/50MIN Diagnoses End stage renal disease N18.6 Acute respiratory failure with hypoxia J96.01 Hypotension I95.9
--- NOTE | 2022-12-10 12:49 | Pharmacy Report ---
Pharmacy Glycemic Short Note 2 - Date of Service December 10, 2022 - Glycemic Short BSG Results (Last 24 hours): 12/09/22 12/09/22 12/10/22 16:16 20:30 07:07 Glucose 177 H POC Glucose 168 H 161 H 12/10/22 07:15 Glucose POC Glucose 170 H OUTPATIENT ANTIDIABETIC REGIMEN: * Tresiba 80 units SC daily * Novolog SC AC per sliding scale (up to 90 units/day) * HbA1c: 6.9% (07/30/22) * Unreliable in the setting of HD ASSESSMENT: 12/10: * Patient received 41 units of insulin yesterday, 10 units of basal + 31 units of bolus. BSGs [phone] mg/dL * Fasting up to 170 mg/dl, will increase basal today * Patient receiving HD this morning * Will continue current novolog parameters, monitor 12/09: * Patient received 32 units of insulin yesterday, 10 units of basal + 22 units of bolus. BSGs [phone] mg/dL * Fasting BSG within range today, 139 mg/dL- adjusted basal scale so patient is likely to get similar * No change to novolog at current time- lunch BSG elevated today- will monitor, tighten carb ratio if trend continues 12/08: * Deandra received 36 units of insulin yesterday, 5 units basal + 31 units bolus. BSGs were: [phone] mg/dL. * Fasting BSG slightly increased to 152 mg/dL this AM. Will continue with current scaled basal regimen which will provide more basal if hyperglycemic. * No change to Novolog today. * Patient to HD this AM. Did receive 5 units Lantus per scale. 12/07: * BSGs remain reasonably well-controlled on significantly less insulin than reported outpatient doses * Received 28 units of insulin yesterday (5 units of basal and 23 units of bolus) * Fasting BSG trending up a bit today, will plan on increasing basal 12/05: * Patient admitted with heart failure exacerbation/cellulitis. * Blood sugars have been in the low 80s since admission. * Lantus held this morning, will continue current scale up to 20 units tonight * Novolog parameters similar to weight based stress of 2 PLAN FOR INPATIENT GLYCEMIC CONTROL: * Basal insulin * Lantus 10 units SC BID * Bolus insulin * NovoLog per scale ACHS or Q6hrs while NPO * Goal Range: Low 110 mg/dL - High 140 mg/dL * Correction Factor: 15 mg/dL/unit * Nutritional / Prandial insulin per carb ratio of 1 unit per 6 grams CHO consumed
[2022-12-10] MEDS ORDERED: MIDODRINE HCL 10 MG TAB PO SCH (14:00)
--- NOTE | 2022-12-10 14:21 | Hospitalist Progress Note ---
Date of Service December 10, 2022 Assessment & Plan (1) Hypotension: Plan: Ongoing. In the past this has been primarily during HD sessions. However, she is now having such on non-HD days, etc. Cortisol level today - 18. H/H have been stable with no signs of bleeding. Was previously taking metoprolol xl -- this will be stopped; has had persistent hypotension this am and this afternoon after receiving such last night. I gave a 2nd dose of midodrine today post-HD with little improvement in BP. Thus, increase midodrine to 10mg TID. Could consider florinef but not ideal due to its propensity for fluid retention thus defer. Further, she is relatively asymptomatic from the low BPs. Repeat CBC, BMP am. Serial BPs. Will inform her primary hiv prevention specialist that we are stopping metoprolol. (2) Acute respiratory failure with hypoxia and hypercapnia: Plan: Presented with O2 sats <80% and pCO2 in the 70s. Has required NC O2 ever since. Hypoxia has been presumed 2nd to pulmonary edema/volume overload. Despite serial HD treatments she continues with NC O2 requirement. She promptly desaturates with removal of her O2. She states she has been compliant with her Eliquis pre-admission. Patient may have OHS/TARAS contributing to NC O2 requirement. Obtained CT chest - mild edema still present, PA are dilated, but no other acute findings. Echo with poor windows thus unable to estimate PA pressures; RV function, however, grossly wnl. Consider outpatient referral to cardiology & pulmonary for additional testing (PFTs, ?right heart cath, etc). (3) Cellulitis: Plan: resolved. previously on LLE/left foot. received cefepime IV for such earlier in the admission. All abx have been d/c. (4) End stage renal disease: Plan: Typical schedule M/W/F at [facility] HD in [place]. Outpatient HD sessions have been previously limited by hypotension by report. This likely has led to volume overload slowly over time as multiple HD sessions have often been cut short. Appreciate [facility] assistance. s/p HD today; very little UF taken today. Session truncated due to intra-HD hypotension -- despite taking 10mg midodrine this am. Continue phos binders, etc. (5) Hypertension: Plan: Metoprolol succinate was given last pm and with such has been hypotensive ever since. Stop metoprolol; will not give any further. See hypotension above. (6) Elevated troponin: Plan: Either 2nd to myocardial demand ischemia in setting of #1 OR 2nd to ESRD status. No evidence of ACS. (7) Chronic diastolic congestive heart failure: Plan: Volume overload/pulmonary edema is on the basis of ESRD rather than primary cardiac issue. This appears resolved. (8) Diabetic nephropathy associated with type 2 diabetes mellitus: Plan: Appreciate Pharmacy glycemic consult. Cont basal-bolus insulin. (9) Hyperlipidemia: Plan: Continue statin (10) Paroxysmal atrial fibrillation: Plan: Continue Eliquis 5mg BID Continue digoxin 0.0625mg QOD Stop Metoprolol xl due to hypotension Has remained NSR while here (11) Morbid obesity with BMI of 45.0-49.9, adult: Plan: BMI 45 (12) Thyroid nodule greater than or equal to 1.5 cm in diameter incidentally noted on imaging study: Plan: 3.5cm left thyroid nodule seen on CT chest today will need endo f/u for this nonurgently Plan DVT proph - eliquis 5mg BID PT/OT both advise rehab -- to [facility] but not today due to hypotension left message for pt's daughter on her voicemail this evening Admission and Anticipated Discharge Date Admission Date: December 04, 2022 Subjective saw patient post-HD today she was resting comfortably in bed she cont to require a small amount of NC O2 BPs were low during HD, and remain low post-HD she denies feeling dizzy at any point today denies any new complaints tele overnight wnl Review of Systems Review of Systems: cv - no cp, no orthopnea pulm - no cough, no dyspnea at rest GI - no abd pain/nausea/emesis Physical Exam Physical Exam: gen - NAD, obese, resting comfortably in bed neck - no JVD mouth - MMM heart - RRR, s1 s2, no obvious murmur lungs - decreased BS bases, otherwise CTA b/l abd - soft NT ND BS+ ext - no edema, pulses 2+ b/l skin - no cellulitis either leg or foot; left great toe ulcer with scab (dorsal surface of toe) psych - a/o x 3 Results & Data Results & Data Vital Signs (Past 12 Hours) Vital Signs Temp Pulse Pulse Pulse Resp BP BP 12/10/22 12:45 66 73/47 L 12/10/22 12:30 68 80/50 L 12/10/22 11:45 56 L 69/30 L 12/10/22 12:00 51 L 74/38 L 12/10/22 11:30 60 81/46 L 12/10/22 10:45 58 L 85/40 L 12/10/22 11:00 65 77/37 L 12/10/22 10:30 65 68/43 L 12/10/22 13:08 36.7 C 61 90/44 L 12/10/22 10:00 58 L 87/42 L 12/10/22 13:23 20 76/39 L 12/10/22 13:23 69 12/10/22 09:47 64 93/48 L 12/10/22 09:40 36.7 C 58 L 12/10/22 09:00 63 12/10/22 09:00 12/10/22 07:12 36.8 C 62 18 90/61 L 12/10/22 03:25 36.7 C 67 18 103/50 L 12/10/22 03:19 83 Pulse Ox O2 Del Method O2 Flow Rate 12/10/22 12:45 12/10/22 12:30 12/10/22 11:45 12/10/22 12:00 12/10/22 11:30 12/10/22 10:45 12/10/22 11:00 12/10/22 10:30 12/10/22 13:08 12/10/22 10:00 12/10/22 13:23 92 Nasal Cannula 3 12/10/22 13:23 12/10/22 09:47 12/10/22 09:40 12/10/22 09:00 12/10/22 09:00 Nasal Cannula 2 12/10/22 07:12 95 Nasal Cannula 3.0 12/10/22 03:25 Nasal Cannula 3 12/10/22 03:19 Laboratory Results Laboratory Results - last 24 hr 12/10/22 12/10/22 12/10/22 07:07 07:07 07:07 WBC 9.73 RBC 4.74 Hgb 14.7 Hct 48.4 H MCV 102.1 H MCH 31.0 MCHC 30.4 L RDW Std Deviation 62.9 H RDW Coeff of Carolynn 16.6 H Plt Count 133 MPV 11.7 Absolute Nucleated RBC 0.02 Nucleated RBC % (auto) 0.2 Sodium 132 L Potassium 5.4 H Chloride 98 Carbon Dioxide 22 Anion Gap 12 H BUN 78 H D Creatinine 8.29 H* Est Cr Clr Drug Dosing 10.5 Est GFR ( Amer) 5.5 Est GFR (Non-Af Amer) 4.7 BUN/Creatinine Ratio 9.4 L Glucose 177 H POC Glucose Calcium 9.5 Cortisol AM Sample 18.68 12/10/22 12/10/22 12/10/22 07:15 13:15 16:39 WBC RBC Hgb Hct MCV MCH MCHC RDW Std Deviation RDW Coeff of Carolynn Plt Count MPV Absolute Nucleated RBC Nucleated RBC % (auto) Sodium Potassium Chloride Carbon Dioxide Anion Gap BUN Creatinine Est Cr Clr Drug Dosing Est GFR ( Amer) Est GFR (Non-Af Amer) BUN/Creatinine Ratio Glucose POC Glucose 170 H 152 H 160 H Calcium Cortisol AM Sample 12/10/22 20:42 WBC RBC Hgb Hct MCV MCH MCHC RDW Std Deviation RDW Coeff of Carolynn Plt Count MPV Absolute Nucleated RBC Nucleated RBC % (auto) Sodium Potassium Chloride Carbon Dioxide Anion Gap BUN Creatinine Est Cr Clr Drug Dosing Est GFR ( Amer) Est GFR (Non-Af Amer) BUN/Creatinine Ratio Glucose POC Glucose 202 H Calcium Cortisol AM Sample PG Care Time/CCT Total # of Minutes Spent Total Time Spent with Patient: Total time spent is greater than 50% in coordination of care (as documented) at patient's floor/unit and/or counseling patient: Coding Level of Care Code 78115 SUB INP/OBS CARE 2/35MIN Diagnoses Hypotension I95.9 Acute respiratory failure with hypoxia and hypercapnia J96.01; J96.02 Cellulitis L03.90 End stage renal disease N18.6 Hypertension I10 Elevated troponin R77.8 Chronic diastolic congestive heart failure I50.32 Diabetic nephropathy associated with type 2 diabetes mellitus E11.21 Hyperlipidemia E78.5 Paroxysmal atrial fibrillation I48.0 Morbid obesity with BMI of 45.0-49.9, adult E66.01; Z68.42 Thyroid nodule greater than or equal to 1.5 cm in diameter incidentally noted on imaging study E04.1
[2022-12-10] MEDS: GABAPENTIN 100 MG CAP PO SCH (20:21)
[2022-12-10] MEDS: ROSUVASTATIN CALCIUM 10 MG TAB PO SCH (20:22)
[2022-12-11 06:54] LABS: Hematocrit (blood only) 50.4 % (37.0-47.0); Hemoglobin 15.4 g/dl (12.0-16.0); Mean Corpuscular Hemoglobin 30.6 pg (25.0-34.0); Mean Corpuscular Hgb Conc 30.6 g/dL (32.0-36.0); Mean Corpuscular Volume 100.2 fL (80.0-100.0); Mean Platelet Volume 12.2 fL (9.4-12.4); Nucleated RBC # (auto) 0.02 K/uL (0-0.12); Nucleated RBC % (auto) 0.2 %; Platelet Count 116 K/uL (130-400); RDW Coefficient of Variation 16.4 % (11.5-14.5); RDW Standard Deviation 61.1 fL (36.4-46.3); Red Blood Count 5.03 M/uL (4.20-5.40); White Blood Count 8.12 K/ul (4.8-10.8)
[2022-12-11 07:14] LABS: BUN Creatinine Ratio 8.8 (10-20); Calcium 9.4 mg/dl (8.6-10.3); Creatinine Clr Calc Pharmacy 14.5 ml/min; Est GFR (Non-African American) 6.9 ml/min; Potassium 5.1 mmol/L (3.5-5.1)
[2022-12-11] MEDS: INSULIN ASPART PER UNIT CHARGE SC SCH ×2 (08:29→12:15)
[2022-12-11] MEDS: VENLAFAXINE HCL 37.5 MG TAB PO SCH (08:31)
[2022-12-11] MEDS: DIGOXIN 0.125 MG TAB PO SCH (08:31)
[2022-12-11] MEDS: APIXABAN 5 MG TABLET PO SCH (08:31)
[2022-12-11] MEDS: CALCIUM ACETATE 667 MG CAP/TAB PO SCH ×2 (08:32→11:23)
[2022-12-11] MEDS: MIDODRINE HCL 10 MG TAB PO SCH ×3 (08:32→16:17)
[2022-12-11] MEDS ORDERED: POLYETHYLENE (MIRALAX) 17 GM PACK PO SCH (09:00)
[2022-12-11] MEDS ORDERED: SENNA 8.6 MG TAB PO SCH (09:00)
[2022-12-11] MEDS ORDERED: LANTUS PER UNIT CHARGE SQ SCH (09:00)
--- NOTE | 2022-12-11 10:33 | Nephrology Progress Note ---
Date of Service December 11, 2022 Assessment & Plan (1) End stage renal disease: Plan: ESRDattributed to DKD. On HD MWF at [facility] under the care of Dr. Sampson. Left BC AV fistula functioning well. EDW 136.5 kg. Did not tolerate challenge for additional fluid removal yesterday due to intradialytic hypotension. Metoprolol has now been held. Stopping the medication seems to have enabled additional UF during HD prior during the hospitalization. BP acceptable this AM. Remains on midodrine TID. Volume status acceptable. Adequate clearance with HD yesterday. Next planned HD will be tomorrow. Dialysis at [facility] tomorrow, if discharged today. Midodrine 10 mg prior to HD. Dietary sodium and fluid restriction have been continuously reenforced. Low sodium diet. 1 L per day fluid restriction. Medications appropriately dosed for IHD. Dietary phosphorus restriction. [facility]. [facility] nephrology will follow Deandra at [facility] or [facility] post discharge from [facility]. (2) Acute respiratory failure with hypoxia: Plan: Remains on supplemental O2 weaned to 2 L NC. Challenge with additional fluid removal as tolerated during HD today. (3) Hypotension: Plan: Intradialytic hypotension. Continue midodrine 10 mg pretreatment. Metoprolol discontinued. Admission and Anticipated Discharge Date Admission Date: December 04, 2022 Subjective No acute events overnight. UF with HD yesterday limited due to hypotension. Metoprolol held yesterday evening. BP improved today. Deandra feels well. She plans to go to [facility] for rehab today. Review of Systems Review of Systems: All systems reviewed & are unremarkable except as noted in HPI & below Physical Exam Constitutional: well developed and + morbidly obese; no acute distress Eyes: no scleral abnormality and no corneal abnormality ENMT: Mouth: no oral mucosal abnormality and oral mucous membranes not dry Neck: normal visual inspection and trachea midline Respiratory: normal respiratory effort Auscultation: lungs clear to auscultation bilaterally and + diminished lung sounds Cardiovascular: Rate/Rhythm: regular rate Heart Sounds: normal S1 and normal S2 Extremities: + edema and + AV fistula Musculoskeletal: Extremities: no cyanosis and no clubbing Skin: normal turgor and + turgor decreased; no lesions and no jaundice Neurologic: Motor/Sensory: no tremor and no asterixis Psychiatric: Orientation: alert and oriented x 3 Results & Data Vital Signs (Past 12 Hours) Vital Signs Temp Pulse Pulse Pulse Resp BP Pulse Ox 12/11/22 09:00 72 12/11/22 09:00 12/11/22 08:31 81 12/11/22 07:09 37.2 C 83 20 104/44 L 95 12/11/22 03:18 75 18 83/42 L 91 12/11/22 00:43 71 O2 Del Method O2 Flow Rate 12/11/22 09:00 12/11/22 09:00 Nasal Cannula 2 12/11/22 08:31 12/11/22 07:09 Nasal Cannula 3.0 12/11/22 03:18 Nasal Cannula 2 12/11/22 00:43 Laboratory Results Laboratory Results - last 24 hr 12/10/22 12/10/22 12/10/22 13:15 16:39 20:42 WBC RBC Hgb Hct MCV MCH MCHC RDW Std Deviation RDW Coeff of Carolynn Plt Count MPV Absolute Nucleated RBC Nucleated RBC % (auto) Sodium Potassium Chloride Carbon Dioxide Anion Gap BUN Creatinine Est Cr Clr Drug Dosing Est GFR ( Amer) Est GFR (Non-Af Amer) BUN/Creatinine Ratio Glucose POC Glucose 152 H 160 H 202 H Calcium 12/11/22 12/11/22 12/11/22 06:27 06:27 07:26 WBC 8.12 RBC 5.03 Hgb 15.4 Hct 50.4 H MCV 100.2 H MCH 30.6 MCHC 30.6 L RDW Std Deviation 61.1 H RDW Coeff of Carolynn 16.4 H Plt Count 116 L MPV 12.2 Absolute Nucleated RBC 0.02 Nucleated RBC % (auto) 0.2 Sodium 133 L Potassium 5.1 Chloride 100 Carbon Dioxide 24 Anion Gap 9 BUN 53 H D Creatinine 6.03 H* D Est Cr Clr Drug Dosing 14.5 Est GFR ( Amer) 8.0 Est GFR (Non-Af Amer) 6.9 BUN/Creatinine Ratio 8.8 L Glucose 159 H POC Glucose 173 H Calcium 9.4 PG Care Time/CCT Total # of Minutes Spent Total Time Spent with Patient: Total time spent is greater than 50% in coordination of care (as documented) at patient's floor/unit and/or counseling patient: Coding Level of Care Code 82375 SUB INP/OBS CARE 3/50MIN Diagnoses End stage renal disease N18.6 Acute respiratory failure with hypoxia J96.01 Hypotension I95.9
[2022-12-11] MEDS ORDERED: bisacodyL 10 MG SUPP PR STA (10:59)
--- NOTE | 2022-12-11 13:29 | Discharge Summary ---
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 fib on apixaban, depression who presented to the [facility] ED on 12/04/22 with SOB. In the ED the patient was found to be afebrile, hemodynamically stable, but hypoxic at 77% on RA. Labs were remarkable for an MCV of 101, MCHC of 30, RDW of 68, VBG pH of 7.21 with pCO2 of 72, and pO2 of 64, stable Cr of 6.40, initial high sen trop of 30, with BNP of 1962, and Covid 19/RSV/Influenza negative. At the time of the exam the patient was sitting in bed in no acute distress, currently saturating at 95% on 4L NC with her daughter sitting bedside. They state that the patient has been dealing with SOB for the past 1-2 months. She feels as though her SOB has progressed over this time. The patient states that she has been having full dialysis sessions, but they are not able to remove as much fluid as they would like due to hypotension. She also adds that she has had to be placed on 2L NC during some of her recent dialysis sessions. She denies recent fever, chills, chest pain, cough, abd pain, nausea, vomiting, dysuria, hematuria, melena, increased LE swelling. Of note, she states that she sustained a fall from standing on Easter, she does not believe that she hit her head or lost consciousness. She sustained a laceration to the left great toe at the time of her fall. Her daughter states that she has been having her mother check her SpO2 with a home pulse oximeter, recently her SpO2 has been running in the 70's- 80's. She does not have a previous history of TARAS but her daughter states that she does snore at times. When asked about her sodium intake, she states that she has a hard time limiting salt as she enjoys it on her food. She has not missed doses of her Eliquis recently and had a full session of dialysis yesterday. We discussed code status, she wishes to be a full code and for her daughter to make medical decisions for her if she cannot make them herself Please refer to Dr. Gardner's attestation for any changes to the treatment plan Discharge Exam gen - NAD, obese, resting comfortably in bed neck - no JVD mouth - MMM heart - RRR, s1 s2, no obvious murmur lungs - decreased BS bases, otherwise CTA b/l abd - soft NT ND BS+ ext - no edema, pulses 2+ b/l skin - no cellulitis either leg or foot; left great toe ulcer with scab (dorsal surface of toe) psych - a/o x 3 Discharge Data Allergies Allergy/AdvReac Type Severity Reaction Status Date / Time atorvastatin [From Lipitor] AdvReac Mild Muscle Pain Verified 08/21/22 13:26 venlafaxine [From Effexor] AdvReac Mild Not Verified 08/21/22 13:26 helpful for depression/neuropathy management Consultations 12/04/22 19:21 ED Decision to Admit Stat 12/04/22 20:05 Consult Nephrology Routine Ordered Studies 12/04/22 20:01 US venous doppler LE LT Urgent 12/09/22 13:42 CT chest diagnostic wo con Routine Hospital Course (1) Hypotension: Ongoing. In the past this has been primarily during HD sessions. However, she is now having such on non-HD days, etc. Cortisol level today - 18. H/H have been stable with no signs of bleeding. Was previously taking metoprolol xl -- this will be stopped; has had persistent hypotension this am and this afternoon after receiving such last night. I gave a 2nd dose of midodrine today post-HD with little improvement in BP. Thus, increase midodrine to 10mg TID. Could consider florinef but not ideal due to its propensity for fluid retention thus defer. Further, she is relatively asymptomatic from the low BPs. Repeat CBC, BMP am. Serial BPs. Will inform her primary manufacturing technology professor that we are stopping metoprolol. (2) Acute respiratory failure with hypoxia and hypercapnia: Presented with O2 sats <80% and pCO2 in the 70s. Has required NC O2 ever since. Hypoxia has been presumed 2nd to pulmonary edema/volume overload. Despite serial HD treatments she continues with NC O2 requirement. She promptly desaturates with removal of her O2. She states she has been compliant with her Eliquis pre-admission. Patient may have OHS/TARAS contributing to NC O2 requirement. Obtained CT chest - mild edema still present, PA are dilated, but no other acute findings. Echo with poor windows thus unable to estimate PA pressures; RV function, however, grossly wnl. Consider outpatient referral to cardiology & pulmonary for additional testing (PFTs, ?right heart cath, etc). (3) Cellulitis: resolved. previously on LLE/left foot. received cefepime IV for such earlier in the admission. All abx have been d/c. (4) End stage renal disease: Typical schedule M/W/F at [facility] HD in [place]. Outpatient HD sessions have been previously limited by hypotension by report. This likely has led to volume overload slowly over time as multiple HD sessions have often been cut short. Appreciate [facility] Nephrology assistance. s/p HD today; very little UF taken today. Session truncated due to intra-HD hypotension -- despite taking 10mg midodrine this am. Continue phos binders, etc. (5) Hypertension: Metoprolol succinate was given last pm and with such has been hypotensive ever since. Stop metoprolol; will not give any further. See hypotension above. (6) Elevated troponin: Either 2nd to myocardial demand ischemia in setting of #1 OR 2nd to ESRD status. No evidence of ACS. (7) Chronic diastolic congestive heart failure: Volume overload/pulmonary edema is on the basis of ESRD rather than primary cardiac issue. This appears resolved. (8) Diabetic nephropathy associated with type 2 diabetes mellitus: Appreciate Pharmacy glycemic consult. Cont basal-bolus insulin. (9) Hyperlipidemia: Continue statin (10) Paroxysmal atrial fibrillation: Continue Eliquis 5mg BID Continue digoxin 0.0625mg QOD Stop Metoprolol xl due to hypotension Has remained NSR while here (11) Morbid obesity with BMI of 45.0-49.9, adult: BMI 45 (12) Thyroid nodule greater than or equal to 1.5 cm in diameter incidentally noted on imaging study: 3.5cm left thyroid nodule seen on CT chest today will need endo f/u for this nonurgently Plan DVT proph - eliquis 5mg BID PT/OT both advise rehab -- to [facility] but not today due to hypotension left message for pt's daughter on her voicemail this evening Discharge Plan Discharge Items Patient Disposition: Transfer Inpatient Rehab Fac Reason For Visit: Shortness of breath Discharge Diagnosis: 1. volume overload/pulmonary edema due to ESRD 2. ESRD on hemodialysis - Thu/Thu/Thursday 3. chronic hypotension 4. 3.5cm left thyroid nodule - endocrinology follow-up needed 5. history of paroxysmal atrial flutter/fibrillation - [facility] cardiology follow- up needed 6. constipation - resolved 7. morbid obesity 8. acute respiratory failure with hypoxic & hypercapnia - requires continuous NC O2 9. obesity-hypoventilation syndrome (suspected) 10. pulmonary hypertension (suspected) 11. type 2 diabetes Activity: Resume your previous activity Non-emergency contact: Primary Care Provider, Printing Pressman and Sign Hanger Supervisor Call non-emergency contact if: you have any medication questions and your symptoms worsen Follow-up/Referrals: Chayito Pagan MD [Primary Care Provider] - Jerry Salvador MD [Physician] - 01/15/23 (see Dr Salvador to discuss further cardiac testing ) Dejan Medina PA-C [Physician Self Storage Manager] - 01/20/23 (follow-up of diabetes & left-sided thyroid nodule (3.5cm)) Diet: Carb Consistent or DM2 and Dialysis Renal Fluids: 1500ml (6 cups) Addtl Attending Provider Instructions: Mrs Magdaleno was hospitalized for difficulty breathing. This was felt to be mainly due to volume overload/pulmonary edema. Despite serial dialysis treatments and getting her weight back to her dry weight she still has been requiring NC O2. CT chest suggests the presence of pulmonary hypertension which will need cardiology follow-up. She may also have obesity-hypoventilation syndrome contributing to her hypoxia. She is at high risk of TRAAS and sleep study is recommended. Recommendations - 1. STOP metoprolol succinate. 2. Midodrine 10mg three times daily (0800, 1200, 1700) for hypotension. 3. Follow-up with cardiology as scheduled (see separate section). 4. Follow-up with endocrinology as scheduled (see separate section). 5. BSGs ac/hs. 6. NC O2 3 liters continously. 7. Consider pulmonary referral for PFTs, sleep study, etc. Please note - even with midodrine the patient experiences very low blood pressures during dialysis (70s/80s systolic). Pending Studies at Discharge: No Stand-Alone Forms: My [facility] Skilled Items Patient informed of condition?: Yes DNR: No Discharge Level of Care: Acute rehab Communicable Disease: No Discharge Prognosis: Stable Lines: None Urinary Catheter: No Medications and DC Order Prescriptions: New polyethylene glycol 3350 [Miralax] 17 gram Powder In Packet 17 g PO DAILY Qty: 1 0RF (DME) Oxygen Home Liters Per Minute See Rx Instructions .ROUTE .MEDSUPPLY Qty: 1 0RF Rx Instructions: 3 liters continuously Continued (DME) lancets [Accu-Chek Fastclix Lancet Drum] Misc See Rx Instructions .ROUTE .MEDSUPPLY Qty: 102 11RF Rx Instructions: test blood sugars 3 x daily rosuvastatin 10 mg tablet 10 mg PO DAILY Qty: 90 3RF Rx Instructions: hs (DME) BD SafetyGlide Syringe 3 mL 25 gauge x 1" syringe See Rx Instructions .Route Qty: 4 5RF Rx Instructions: As directed (DME) insulin syringe-needle U-100 [BD Insulin Syringe Ultra-Fine] 0.5 mL 30 gauge x 1/2" syringe See Rx Instructions .Route Qty: 100 1RF Rx Instructions: use 3 x daily (DME) pen needle, diabetic [BD Ultra-Fine Kaylin Pen Needle] 32 gauge x 5/32" needle See Rx Instructions .ROUTE .COMPLEX Qty: 200 11RF Dose Instruction: USE FOUR TIMES DAILY WITH INSULIN Rx Instructions: USE FOUR TIMES DAILY WITH INSULIN (DME) Accu-Chek Guide test strips Strip See Rx Instructions .ROUTE .MEDSUPPLY Qty: 100 11RF Rx Instructions: test blood sugars 3 x daily apixaban 5 mg tablet 5 mg PO BID Qty: 180 3RF digoxin [Digitek] 125 mcg (0.125 mg) tablet 0.0625 mg PO Q2D Qty: 30 6RF venlafaxine 37.5 mg tablet 37.5 mg PO BID Qty: 60 1RF cinacalcet 30 mg tablet 30 mg PO DAILY Velphoro 500 mg tablet,chewable 1,000 mg PO TID cholecalciferol (vitamin D3) 50 mcg (2,000 unit) capsule 50 mcg PO DAILY (DME) blood-glucose meter [Accu-Chek Guide Glucose Meter] mis See Rx Instructions .ROUTE .MEDSUPPLY Qty: 1 0RF Rx Instructions: As directed Saccharomyces boulardii 250 mg capsule 250 mg PO DAILY calcium acetate(phosphat bind) 667 mg capsule 1,334 mg PO TIDM gabapentin 100 mg Capsule 200 mg PO HS Qty: 60 0RF Changed sennosides [Senokot] 8.6 mg tablet 17.2 mg PO DAILY Qty: 60 0RF midodrine 10 mg tablet 10 mg PO .COMPLEX Qty: 90 5RF Rx Instructions: Take at 0800,1200,1700 each day. insulin aspart U-100 [Novolog FlexPen U-100 Insulin] 100 unit/mL (3 mL) insulin pen See Rx Instructions .ROUTE .COMPLEX 30 Days Qty: 30 5RF Rx Instructions: sliding scale with meals/bedtime -- -Goal BSG Range: Low 120 mg/dL, High 150 mg/dL --Correction Factor: 15 mg/dL/unit --Carbohydrate ratio = 5 g/unit --BSGs ACHS if eating, q6h if npo insulin degludec [Tresiba FlexTouch U-200] 200 unit/mL (3 mL) insulin pen 15 unit SQ BID Qty: 1 0RF Discontinued metoprolol succinate 100 mg tablet extended release 24 hr 100 mg PO HS Discharge Orders: Discharge Order (Routine); Ordered 12/11/22 Ordered By: Alfredo Rueda Admission Data Admit Date/Time: 12/04/22 20:00 Attending Provider: Alfredo Rueda Admit Provider: Ana Maria Gardner Primary Care Provider: Chayito Pagan V. Other Providers: Ana Maria Gardner ; Blanca Robertson ; [facility] ; [place] Coding Diagnoses Hypotension I95.9 Acute respiratory failure with hypoxia and hypercapnia J96.01; J96.02 Cellulitis L03.90 End stage renal disease N18.6 Hypertension I10 Elevated troponin R77.8 Chronic diastolic congestive heart failure I50.32 Diabetic nephropathy associated with type 2 diabetes mellitus E11.21 Hyperlipidemia E78.5 Paroxysmal atrial fibrillation I48.0 Morbid obesity with BMI of 45.0-49.9, adult E66.01; Z68.42 Thyroid nodule greater than or equal to 1.5 cm in diameter incidentally noted on imaging study E04.1
== END 2022-12-11 16:47 | DRG 291 ==
LOC: ED 17:46 → SUATTDRO 20:00 → 2E 20:00